=== PATIENT | female | born 1940 | race Caucasian/White ===

== ENCOUNTER → 2016-09-27 | Outpatient (REF) | payer MEDICARE ==
[~2016-09-27] MED LIST: ALBU1.25 IN; ALBU17IN INH; ASPI81TA2 PO; BISO5TAB54 PO; CARD4TAB2 PO; CARD8TAB2 PO; COZA100T2 PO; FURO20TA2 PO; OMEG100011 PO; SYNT150T PO; TAGA200T PO; VITA200015 PO; ZYRT10TA14 PO
[2016-09-27 12:32] LABS: MEAN CORPUSCULAR HEMOGLOBIN 29.9 pg (27.0-33.0); MEAN CORPUSCULAR HGB CONC 33.7 g/dl (32.0-36.5); MEAN CORPUSCULAR VOLUME 88.7 fl (80.0-96.0); RED CELL DISTRIBUTION WIDTH 13.8 % (11.5-14.5); WHITE BLOOD COUNT 7.3 K/mm3 (4.0-10.0)
[2016-09-27 13:08] LABS: ALBUMIN 3.3 GM/DL (3.2-5.2); ALBUMIN/GLOBULIN RATIO 0.89 (1.00-1.93); ALKALINE PHOSPHATASE 77 U/L (45-117); ALT/SGPT 16 U/L (12-78); ANION GAP 9 MEQ/L (8-16); AST/SGOT 13 U/L (15-37); BILIRUBIN,TOTAL 0.3 MG/DL (0.2-1.0); BLOOD UREA NITROGEN 18 MG/DL (7-18); CALCIUM LEVEL 8.8 MG/DL (8.8-10.2); CARBON DIOXIDE LEVEL 28 MEQ/L (21-32); CHLORIDE LEVEL 104 MEQ/L (98-107); CHOLESTEROL LEVEL 200 MG/DL (<200); CREATININE FOR GFR 1.01 MG/DL (0.55-1.02); FREE T4 1.38 NG/DL (0.76-1.46); GLUCOSE, FASTING 77 MG/DL (83-110); POTASSIUM SERUM 4.6 MEQ/L (3.5-5.1); SODIUM LEVEL 141 MEQ/L (136-145); TRIGLYCERIDES LEVEL 155 MG/DL (<150)
[2016-09-29 00:07] LABS: FREE KAPPA LIGHT CHAINS SERUM 36.72 mg/L (3.30-19.40); FREE LAMBDA LIGHT CHAINS SERUM 23.13 mg/L (5.71-26.30); KAPPA/LAMBDA RATIO SERUM 1.59 (0.26-1.65)
[2016-10-02 11:54] LABS: ALBUMIN 3.61 GM/DL (3.29-5.55); ALBUMIN % 51.5 % (55.8-66.1)
== END ==
LOC: M SFHCADAM 11:17
PROVIDERS: ATTEND Family Medicine
DX: D64.9 Anemia, unspecified (principal); E78.5 Hyperlipidemia, unspecified; R77.9 Abnormality of plasma protein, unspecified; E03.9 Hypothyroidism, unspecified
CPT/HCPCS: 80053; 80061; 83883; 84165; 84439; 84443; 85027; G0463

== ENCOUNTER 2016-11-02 17:01 | Emergency (ER) | payer MEDICARE ==
[~2016-11-02] VITALS: Ht 152.4 cm; Wt 129.2 kg
[2016-11-02 17:59] LABS: BASO % 0.5 % (0.0-1.0); EOS # 0.2 K/mm3 (0.0-0.50); EOS % 2.7 % (0.0-3.0); LARGE UNSTAINED CELL # 0.1 K/mm3 (0.0-0.4); LYMPH # 1.3 K/mm3 (1.5-4.5); LYMPH % 17.5 % (24.0-44.0); MEAN CORPUSCULAR HEMOGLOBIN 29.6 pg (27.0-33.0); MEAN CORPUSCULAR VOLUME 86.9 fl (80.0-96.0); MONO # 0.4 K/mm3 (0.0-0.8); MONO % 5.2 % (0.0-5.0); NEUTROPHILS # 5.3 K/mm3 (1.8-7.7); NEUTROPHILS % 73.2 % (36.0-66.0); PLATELET COUNT, AUTOMATED 215 k/mm3 (150-450); RED CELL DISTRIBUTION WIDTH 13.2 % (11.5-14.5); WHITE BLOOD COUNT 7.2 K/mm3 (4.0-10.0)
[2016-11-02 18:28] LABS: ANION GAP 5 MEQ/L (8-16); BLOOD UREA NITROGEN 16 MG/DL (7-18); CALCIUM LEVEL 8.9 MG/DL (8.8-10.2); CARBON DIOXIDE LEVEL 32 MEQ/L (21-32); CHLORIDE LEVEL 102 MEQ/L (98-107); GLOMERULAR FILTRATION RATE 51.7 (>39); GLUCOSE, FASTING 99 MG/DL (83-110); POTASSIUM SERUM 3.8 MEQ/L (3.5-5.1); SODIUM LEVEL 139 MEQ/L (136-145)
--- NOTE | 2016-11-02 18:43 | REP ---
CHEST, TWO VIEWS: 11/02/2016. Comparison: Portable chest 10/08/2012, two-view chest 09/27/2010. Clinical history: Chest pain. Findings: Heart has left ventricular configuration with mild enlargement. The aorta is tortuous and unchanged. There is some minor fibrotic changes in the left mid lung zone and perihilar regions. COPD with some flattening of diaphragms. A lateral view. Pulmonary artery hypertension. No pulmonary edema, dense consolidation or mass. The airway is intact. Bony thorax shows no acute compression deformity. Impression: 1. There is mild fibrosis with pulmonary artery hypertension suggesting COPD.2. Some mild cardiomegaly with left ventricular enlargement, some left atrial enlargement but no pulmonary edema or effusion. 3. No dense consolidation. Aorta tortuous but unchanged. Signed by Sebastian Tuttle MD 11/02/2016 08:48 P
[2016-11-02] MEDS ORDERED: GI COCKTAIL 50ML BTL(HYOSCYAMINE/MAALOX/LIDOCAINE VISCOUS)(1:3:1) PO ONE (18:45)
[2016-11-02] MEDS ORDERED: ASPIRIN 81 MG CHEW TABLET PO ONE (18:45)
[2016-11-02 23:59] VITALS: BP 159/71
--- NOTE | 2016-11-03 07:37 | ECGEPIP ---
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
--- NOTE | 2016-11-03 07:44 | ECGEPIP ---
Stationary ECG Study [facility] - ED Test Date: 2016-11-02 Pat Name: JEAN CARLOS FLORES Department: Room: - Gender: F Kilnman: samy : 1940 Requested By: SUKHI Thomson Order Number: [id number] Reading MD: Walt Zarate Measurements Intervals [place] Rate: 64 P: 24 SD: 188 QRS: -11 QRSD: 99 T: 8 QT: 377 QTc: 389 Interpretive Statements SINUS RHYTHM VOLTAGE CRITERIA FOR LVH PRIOR INFERIOR INFARCT PRWP SIMILAR TO PRIOR ON SAME DATE Electronically Signed On 11-03-2016 7:43:50 EDT by Walt Zarate
== END 2016-11-03 00:28 | disposition home or self-care (01) ==
LOC: M ED 18:34
DX: R07.9 Chest pain, unspecified (principal); I11.0 Hypertensive heart disease with heart failure; I48.91 Unspecified atrial fibrillation; E78.5 Hyperlipidemia, unspecified; K21.9 Gastro-esophageal reflux disease without esophagitis; J45.909 Unspecified asthma, uncomplicated; E07.9 Disorder of thyroid, unspecified; G47.30 Sleep apnea, unspecified; Z90.79 Acquired absence of other genital organ(s); Z87.891 Personal history of nicotine dependence; Z79.899 Other long term (current) drug therapy; Z88.2 Allergy status to sulfonamides; Z88.8 Allergy status to other drugs, medicaments and biological substances

== ENCOUNTER → 2016-12-25 | Outpatient (CLI) | payer MEDICARE ==
[2016-12-25 15:09] LABS: CREATININE FOR GFR 1.07 MG/DL (0.55-1.02); GLOMERULAR FILTRATION RATE 53.2 (>39)
== END ==
LOC: M WUC 08:45
PROVIDERS: ATTEND Otolaryngology
DX: D33.3 Benign neoplasm of cranial nerves (principal)

== ENCOUNTER → 2016-12-28 | Outpatient (CLI) | payer MEDICARE ==
--- NOTE | 2016-12-28 10:44 | REP ---
MRI study of the brain without and with IV gadolinium: History: Recheck acoustic neuroma. Complains of left-sided hearing loss. Comparison study December 26, 2015. Gadolinium enhancement dose: 12 mL of intravenous ProHance. Technique: Brain, posterior fossa, and temporal bone, IAC protocol is utilized. T1 and T2-weighted axial and coronal images include spin-echo, fast spin echo, 3-D gradient echo, and FLAIR sequences. Diffusion weighted sequences also acquired. Findings: There is mild diffuse cerebral atrophy as before. There is no MR evidence of significant paranasal sinus disease. No intraorbital abnormality is seen. No new extra-axial or intra-axial mass lesion is observed. An intracanalicular and extracanalicular mass lesion is seen in the left CP angle cistern at the IAC demonstrating intense homogeneous enhancement consistent with an acoustic neuroma. This has enlarged yet again since the prior study. In December of 2014 its dimensions were 10 x 5 x 5 mm. In December of 2015 its measured dimensions are 13 x 6 x 5 mm. Today these measurements are 15 x 8 x 7 mm. Homogeneous intense intracanalicular and extracanalicular enhancement is seen as before. The internal auditory canal does not appear to be widened. No other abnormal gadolinium enhancement is seen. Diffusion weighted scans show no evidence of restricted diffusion. No infarct or extra-axial fluid collection is seen. Exam is otherwise unremarkable. Impression: Gradually enlarging left acoustic neuroma. Signed by Jesús Pack MD 12/28/2016 12:51 P
== END ==
LOC: M RAD 08:07
PROVIDERS: ATTEND Otolaryngology
DX: D33.3 Benign neoplasm of cranial nerves (principal)
CPT/HCPCS: 70553; A9576

== ENCOUNTER 2017-10-25 09:26 | Emergency (ER) | payer MEDICARE ==
[2017-10-25 10:13] LABS: BASO % 0.3 % (0.0-1.0); EOS # 0.4 10^3/uL (0.0-0.50); EOS % 6.8 % (0.0-3.0); HEMATOCRIT 38.4 % (36.0-47.0); HEMOGLOBIN 12.4 g/dl (12.0-15.5); IMMATURE GRANULOCYTE % 0.5 % (0-3.0); LYMPH # 1.2 10^3/uL (1.5-4.5); MEAN CORPUSCULAR HEMOGLOBIN 28.8 pg (27.0-33.0); MEAN CORPUSCULAR HGB CONC 32.3 g/dl (32.0-36.5); MEAN CORPUSCULAR VOLUME 89.1 fl (80.0-96.0); MONO # 0.3 10^3/uL (0.0-0.8); MONO % 5.3 % (0.0-5.0); NEUTROPHILS # 4.2 10^3/uL (1.8-7.7); NEUTROPHILS % 68.1 % (36.0-66.0); PLATELET COUNT, AUTOMATED 225 10^3/uL (150-450); RED BLOOD COUNT 4.31 10^6/uL (4.00-5.40); RED CELL DISTRIBUTION WIDTH 13.4 % (11.5-14.5); WHITE BLOOD COUNT 6.2 10^3/uL (4.0-10.0)
[2017-10-25] MEDS ORDERED: IPRATROPIUM 0.5MG/ALBUTEROL 2.5MG INH SOL UD 3ML (DUONEB)(J7620) NEB (10:15)
[2017-10-25] MEDS ORDERED: methylPREDNISolone INJ 125 MG/2 ML VIAL (J2930) IV (10:15)
[2017-10-25] MEDS: methylPREDNISolone INJ 125 MG/2 ML VIAL (J2930) IV (10:23)
[2017-10-25] MEDS: LORazepam 2 MG/ML VIAL (J2060) IV (10:23)
[2017-10-25] MEDS: ALBUTEROL SULFATE 2.5 MG/0.5 ML INH NEB SOLN NEB (10:25)
[2017-10-25 10:27] LABS: ABG HCO3 27.8 MEQ/L (22.0-26.0); ABG O2 SATURATION 96.6 % (95.0-99.0); ABG PARTIAL PRESSURE CO2 38.6 mmHg (35.0-45.0); ABG STANDARD HCO3 28.1 MEQ/L (22.0-26.0); ABG pH (ARTERIAL) 7.475 UNITS (7.350-7.450)
[2017-10-25 10:58] LABS: LACTIC ACID SEPSIS PROTOCOL 1.6 MMOL/L (0.4-2.0)
[2017-10-25 10:59] LABS: ANION GAP 4 MEQ/L (8-16); BLOOD UREA NITROGEN 16 MG/DL (7-18); CALCIUM LEVEL 9.6 MG/DL (8.8-10.2); CARBON DIOXIDE LEVEL 32 MEQ/L (21-32); CHLORIDE LEVEL 106 MEQ/L (98-107); CK-MB VALUE MASS < 1.0 NG/ML (<3.6); CPK CREATINE PHOSPHOKINASE 63 U/L (26-192); CREATININE FOR GFR 1.02 MG/DL (0.55-1.30); GLOMERULAR FILTRATION RATE 56.2 (>39); GLUCOSE, FASTING 99 MG/DL (70-100); MB/CK RELATIVE INDEX 1.58 (< OR =4); SODIUM LEVEL 142 MEQ/L (136-145); TROPONIN I < 0.02 NG/ML (< 0.10)
[2017-10-25 11:17] LABS: NT-PRO BNP 261 PG/ML (<450); THYROID STIMULATING HORMONE 0.823 uIU/ML (0.358-3.740)
== END 2017-10-25 13:54 | disposition home or self-care (01) ==
LOC: M ED 09:26
DX: J45.901 Unspecified asthma with (acute) exacerbation (principal); E66.9 Obesity, unspecified; R00.2 Palpitations; F41.9 Anxiety disorder, unspecified; I51.7 Cardiomegaly; Z79.82 Long term (current) use of aspirin; Z79.899 Other long term (current) drug therapy; Z88.8 Allergy status to other drugs, medicaments and biological substances; Z88.2 Allergy status to sulfonamides
CPT/HCPCS: J2930

== ENCOUNTER → 2017-11-01 | Outpatient (CLI) | payer MEDICARE | LOC: M ADAMS 14:05 | DX: M89.312 Hypertrophy of bone, left shoulder (principal); M25.812 Other specified joint disorders, left shoulder | CPT/HCPCS: 73000 ==

== ENCOUNTER → 2017-12-24 | Outpatient (REF) | payer MEDICARE ==
[2017-12-24 17:48] LABS: D-DIMER QUANT 1117.8 ng/ml (<500)
[2017-12-24 17:58] LABS: ANION GAP 11 MEQ/L (8-16); BLOOD UREA NITROGEN 19 MG/DL (7-18); CALCIUM LEVEL 9.2 MG/DL (8.8-10.2); CARBON DIOXIDE LEVEL 26 MEQ/L (21-32); CHLORIDE LEVEL 107 MEQ/L (98-107); CREATININE FOR GFR 1.14 MG/DL (0.55-1.30); GLOMERULAR FILTRATION RATE 49.3 (>39); GLUCOSE, FASTING 93 MG/DL (70-100); NT-PRO BNP 276 PG/ML (<450); SODIUM LEVEL 144 MEQ/L (136-145)
== END ==
LOC: M SFHCPLAZ 14:55
DX: R09.02 Hypoxemia (principal); R60.0 Localized edema; J45.21 Mild intermittent asthma with (acute) exacerbation
CPT/HCPCS: 80048

== ENCOUNTER → 2017-12-25 | Outpatient (CLI) | payer MEDICARE | LOC: M RAD 11:37 | DX: R09.02 Hypoxemia (principal); M79.89 Other specified soft tissue disorders; J84.10 Pulmonary fibrosis, unspecified | CPT/HCPCS: 71046 ==

== ENCOUNTER → 2018-01-22 | Outpatient (REF) | payer MEDICARE ==
[2018-01-22 18:30] LABS: BASO % 0.5 % (0.0-1.0); EOS # 0.4 10^3/uL (0.0-0.50); EOS % 4.1 % (0.0-3.0); HEMATOCRIT 36.7 % (36.0-47.0); HEMOGLOBIN 12.1 g/dl (12.0-15.5); IMMATURE GRANULOCYTE % 0.4 % (0-3.0); LYMPH # 1.4 10^3/uL (1.5-4.5); LYMPH % 16.2 % (24.0-44.0); MEAN CORPUSCULAR HEMOGLOBIN 28.8 pg (27.0-33.0); MEAN CORPUSCULAR VOLUME 87.4 fl (80.0-96.0); MONO # 0.6 10^3/uL (0.0-0.8); MONO % 6.8 % (0.0-5.0); NEUTROPHILS # 6.1 10^3/uL (1.8-7.7); PLATELET COUNT, AUTOMATED 241 10^3/uL (150-450); RED CELL DISTRIBUTION WIDTH 12.9 % (11.5-14.5); WHITE BLOOD COUNT 8.5 10^3/uL (4.0-10.0)
[2018-01-22 18:49] LABS: ALBUMIN 3.5 GM/DL (3.2-5.2); ALBUMIN/GLOBULIN RATIO 0.92 (1.00-1.93); ALKALINE PHOSPHATASE 81 U/L (45-117); ALT/SGPT 17 U/L (12-78); ANION GAP 7 MEQ/L (8-16); AST/SGOT 13 U/L (7-37); BILIRUBIN,TOTAL 0.3 MG/DL (0.2-1.0); BLOOD UREA NITROGEN 21 MG/DL (7-18); CALCIUM LEVEL 9.3 MG/DL (8.8-10.2); CARBON DIOXIDE LEVEL 28 MEQ/L (21-32); CHLORIDE LEVEL 107 MEQ/L (98-107); CREATININE FOR GFR 0.96 MG/DL (0.55-1.30); GLOMERULAR FILTRATION RATE > 60.0 (>39); GLUCOSE, FASTING 93 MG/DL (70-100); POTASSIUM SERUM 4.1 MEQ/L (3.5-5.1); SODIUM LEVEL 142 MEQ/L (136-145); TOTAL PROTEIN 7.3 GM/DL (6.4-8.2)
[2018-01-28 00:07] LABS: FREE KAPPA LIGHT CHAINS SERUM 26.2 mg/L (3.3-19.4); FREE LAMBDA LIGHT CHAINS SERUM 19.5 mg/L (5.7-26.3); KAPPA/LAMBDA RATIO SERUM 1.34 (0.26-1.65); KAPPA/LAMBDA RATIO URINE 1.55 (2.04-10.37)
[2018-01-28 00:07] LABS: ALK PHOSPHATASE BONE SPECIFIC 13.2 ug/L (.)
== END ==
LOC: M SFHCPLAZ 15:35
DX: R60.0 Localized edema (principal); D89.89 Other specified disorders involving the immune mechanism, not elsewhere classified
CPT/HCPCS: 80053

== ENCOUNTER 2018-02-20 12:58 | Inpatient (IN) | payer MEDICARE ==
[2018-02-20] MEDS: FUROSEMIDE 100 MG/10 ML VIAL (J1940) IV (13:45)
[2018-02-20 14:24] LABS: BASO % 0.2 % (0.0-1.0); EOS # 0.3 10^3/uL (0.0-0.50); EOS % 4.1 % (0.0-3.0); HEMATOCRIT 35.4 % (36.0-47.0); HEMOGLOBIN 11.7 g/dl (12.0-15.5); IMMATURE GRANULOCYTE % 0.4 % (0-3.0); LYMPH # 1.4 10^3/uL (1.5-4.5); LYMPH % 16.4 % (24.0-44.0); MEAN CORPUSCULAR HEMOGLOBIN 28.9 pg (27.0-33.0); MEAN CORPUSCULAR HGB CONC 33.1 g/dl (32.0-36.5); MEAN CORPUSCULAR VOLUME 87.4 fl (80.0-96.0); MONO # 0.6 10^3/uL (0.0-0.8); MONO % 6.7 % (0.0-5.0); NEUTROPHILS # 6.1 10^3/uL (1.8-7.7); NEUTROPHILS % 72.2 % (36.0-66.0); PLATELET COUNT, AUTOMATED 206 10^3/uL (150-450); RED BLOOD COUNT 4.05 10^6/uL (4.00-5.40); RED CELL DISTRIBUTION WIDTH 12.9 % (11.5-14.5); WHITE BLOOD COUNT 8.4 10^3/uL (4.0-10.0)
[2018-02-20 14:34] LABS: INR 0.99; PROTHROMBIN TIME 13.1 SECONDS (12.1-14.4)
[2018-02-20 14:35] LABS: VENOUS BASE EXCESS 3.3 (-2.0-2.0); VENOUS HCO3 28.9 MEQ/L (23.0-27.0); VENOUS O2 SATURATION 81.9 % (60.0-80.0); VENOUS PARTIAL PRESSURE O2 47.5 mmHg (30.0-50.0); VENOUS PH 7.397 UNITS (7.330-7.430); VENOUS TOTAL CO2 30.3 MEQ/L (24.0-28.0)
[2018-02-20 15:04] LABS: ALBUMIN 3.2 GM/DL (3.2-5.2); ALBUMIN/GLOBULIN RATIO 0.78 (1.00-1.93); ALKALINE PHOSPHATASE 75 U/L (45-117); ALT/SGPT 19 U/L (12-78); ANION GAP 8 MEQ/L (8-16); AST/SGOT 18 U/L (7-37); BILIRUBIN,DIRECT 0.1 MG/DL (0.0-0.2); BILIRUBIN,TOTAL 0.3 MG/DL (0.2-1.0); BLOOD UREA NITROGEN 18 MG/DL (7-18); CARBON DIOXIDE LEVEL 29 MEQ/L (21-32); CHLORIDE LEVEL 105 MEQ/L (98-107); CK-MB VALUE MASS < 1.0 NG/ML (<3.6); CPK CREATINE PHOSPHOKINASE 51 U/L (26-192); CREATININE FOR GFR 1.02 MG/DL (0.55-1.30); GLOMERULAR FILTRATION RATE 56.1 (>39); GLUCOSE, FASTING 84 MG/DL (70-100); MB/CK RELATIVE INDEX 1.96 (< OR =4); NT-PRO BNP 242 PG/ML (<450); SODIUM LEVEL 142 MEQ/L (136-145); TOTAL PROTEIN 7.3 GM/DL (6.4-8.2); TROPONIN I < 0.02 NG/ML (< 0.10)
[2018-02-20] MEDS ORDERED: SODIUM CHLORIDE NASAL 0.65% SPRAY BTL (OCEAN) (18:30)
[2018-02-20] MEDS ORDERED: ONDANSETRON 4 MG TAB (S0181) PO (18:30)
[2018-02-20] MEDS ORDERED: ONDANSETRON 4MG/2ML VIAL (J2405) IV (18:30)
[2018-02-20 19:45] LABS: CK-MB VALUE MASS < 1.0 NG/ML (<3.6); CPK CREATINE PHOSPHOKINASE 52 U/L (26-192); MB/CK RELATIVE INDEX 1.92 (< OR =4); TROPONIN I < 0.02 NG/ML (< 0.10)
[2018-02-20] MEDS: ALBUTEROL SULFATE 2.5 MG/0.5 ML INH NEB SOLN INH (20:00)
[2018-02-20] MEDS: LOSARTAN 50 MG TAB PO (21:24)
[2018-02-20] MEDS: BISOPROLOL FUMARATE 5 MG TAB PO (21:24)
[2018-02-20] MEDS: FUROSEMIDE 40 MG/4 ML VIAL (J1940) IV (23:10)
[2018-02-21 02:46] LABS: CK-MB VALUE MASS < 1.0 NG/ML (<3.6); CPK CREATINE PHOSPHOKINASE 65 U/L (26-192); MB/CK RELATIVE INDEX 1.54 (< OR =4); TROPONIN I < 0.02 NG/ML (< 0.10)
[2018-02-21] MEDS: FUROSEMIDE 40 MG/4 ML VIAL (J1940) IV ×4 (05:33→19:09)
[2018-02-21] MEDS: LEVOTHYROXINE 150MCG TABLET (0.15MG) PO (05:33)
[2018-02-21 06:08] LABS: APPEARANCE, URINE HAZY (CLEAR); BACTERIA, URINE AUTO 1+ (NEGATIVE); BILIRUBIN, URINE AUTO NEGATIVE (NEGATIVE); BLOOD, URINE BLOOD NEGATIVE (NEGATIVE); COLOR, URINE YELLOW (YELLOW); GLUCOSE, URINE (UA) AUTO NEGATIVE (NEGATIVE); KETONE, URINE AUTO NEGATIVE (NEGATIVE); LEUKOCYTE ESTERASE, URINE AUTO 2+ (NEGATIVE); MUCUS, URINE SMALL (NEGATIVE); NITRITE, URINE AUTO NEGATIVE (NEGATIVE); PROTEIN, URINE AUTO NEGATIVE (NEGATIVE); RBC, URINE AUTO 3 /HPF (0-3); SPECIFIC GRAVITY URINE AUTO 1.023 (1.002-1.035); SQUAMOUS EPITHELIAL CELL UR AU 4 /HPF (0-6); UROBILINOGEN, URINE AUTO 0.2 mg/dL (0.0-2.0); WBC, URINE AUTO 13 /HPF (0-3)
[2018-02-21 06:42] LABS: BASO % 0.3 % (0.0-1.0); EOS # 0.2 10^3/uL (0.0-0.50); EOS % 2.9 % (0.0-3.0); HEMATOCRIT 36.5 % (36.0-47.0); HEMOGLOBIN 12.3 g/dl (12.0-15.5); IMMATURE GRANULOCYTE % 0.4 % (0-3.0); LYMPH # 1.2 10^3/uL (1.5-4.5); LYMPH % 15.3 % (24.0-44.0); MEAN CORPUSCULAR HEMOGLOBIN 29.4 pg (27.0-33.0); MEAN CORPUSCULAR HGB CONC 33.7 g/dl (32.0-36.5); MEAN CORPUSCULAR VOLUME 87.1 fl (80.0-96.0); MONO # 0.5 10^3/uL (0.0-0.8); MONO % 6.6 % (0.0-5.0); NEUTROPHILS # 5.7 10^3/uL (1.8-7.7); NEUTROPHILS % 74.5 % (36.0-66.0); PLATELET COUNT, AUTOMATED 212 10^3/uL (150-450); RED BLOOD COUNT 4.19 10^6/uL (4.00-5.40); RED CELL DISTRIBUTION WIDTH 13.1 % (11.5-14.5); WHITE BLOOD COUNT 7.6 10^3/uL (4.0-10.0)
[2018-02-21 07:12] LABS: ANION GAP 9 MEQ/L (8-16); BLOOD UREA NITROGEN 21 MG/DL (7-18); CALCIUM LEVEL 8.9 MG/DL (8.8-10.2); CARBON DIOXIDE LEVEL 30 MEQ/L (21-32); CHLORIDE LEVEL 104 MEQ/L (98-107); CREATININE FOR GFR 1.19 MG/DL (0.55-1.30); GLOMERULAR FILTRATION RATE 46.9 (>39); GLUCOSE, FASTING 93 MG/DL (70-100); MAGNESIUM LEVEL 2.2 MG/DL (1.8-2.4); POTASSIUM SERUM 4.1 MEQ/L (3.5-5.1); SODIUM LEVEL 143 MEQ/L (136-145)
[2018-02-21] MEDS: VITAMIN D 1,000 INTERNATIONAL UNITS TABLET PO (07:57)
[2018-02-21] MEDS: OMEGA-3 1000MG CAPSULE PO (07:57)
[2018-02-21] MEDS: OCUVITE 1 TAB PO (07:57)
[2018-02-21] MEDS: ENOXAPARIN 40 MG/0.4 ML SYRINGE (J1650) SC (07:58)
[2018-02-21] MEDS: ALBUTEROL SULFATE 2.5 MG/0.5 ML INH NEB SOLN INH ×4 (08:00→20:00)
[2018-02-21 08:01] LABS: FREE THYROXINE INDEX 4.6 % (1.3-4.8); T UPTAKE 37 % (30-39); THYROXINE (T4) 12.5 UG/DL (4.5-12.0)
[2018-02-21] MEDS ORDERED: DOXAZOSIN MESYLATE 4 MG TAB PO (09:00)
[2018-02-21] MEDS ORDERED: PILL CRUSHER/CUTTER 1 EACH XX (10:00)
[2018-02-21 10:51] LABS: CK-MB VALUE MASS < 1.0 NG/ML (<3.6); CPK CREATINE PHOSPHOKINASE 96 U/L (26-192); MB/CK RELATIVE INDEX 1.04 (< OR =4); TROPONIN I < 0.02 NG/ML (< 0.10)
[2018-02-21] MEDS: ACETAMINOPHEN TAB 650MG DOSE (2X325MG) PO (11:03)
[2018-02-21] MEDS: IBUPROFEN 600 MG TAB PO (14:00)
[2018-02-21] MEDS: LOSARTAN 50 MG TAB PO (21:25)
[2018-02-21] MEDS: BISOPROLOL FUMARATE 5 MG TAB PO (21:26)
[2018-02-22] MEDS: FUROSEMIDE 40 MG/4 ML VIAL (J1940) IV ×4 (00:16→18:04)
[2018-02-22] MEDS: ACETAMINOPHEN TAB 650MG DOSE (2X325MG) PO ×2 (04:13→22:52)
[2018-02-22] MEDS: LEVOTHYROXINE 150MCG TABLET (0.15MG) PO (06:00)
[2018-02-22 06:17] LABS: BASO % 0.5 % (0.0-1.0); EOS # 0.4 10^3/uL (0.0-0.50); EOS % 5.6 % (0.0-3.0); HEMATOCRIT 34.5 % (36.0-47.0); HEMOGLOBIN 11.4 g/dl (12.0-15.5); IMMATURE GRANULOCYTE % 0.6 % (0-3.0); LYMPH # 1.1 10^3/uL (1.5-4.5); LYMPH % 17.4 % (24.0-44.0); MEAN CORPUSCULAR HEMOGLOBIN 28.9 pg (27.0-33.0); MEAN CORPUSCULAR VOLUME 87.3 fl (80.0-96.0); MONO # 0.5 10^3/uL (0.0-0.8); MONO % 7.9 % (0.0-5.0); NEUTROPHILS # 4.5 10^3/uL (1.8-7.7); PLATELET COUNT, AUTOMATED 207 10^3/uL (150-450); RED BLOOD COUNT 3.95 10^6/uL (4.00-5.40); WHITE BLOOD COUNT 6.6 10^3/uL (4.0-10.0)
[2018-02-22 06:43] LABS: ANION GAP 8 MEQ/L (8-16); BLOOD UREA NITROGEN 28 MG/DL (7-18); CALCIUM LEVEL 8.3 MG/DL (8.8-10.2); CARBON DIOXIDE LEVEL 31 MEQ/L (21-32); CHLORIDE LEVEL 103 MEQ/L (98-107); CREATININE FOR GFR 1.22 MG/DL (0.55-1.30); GLOMERULAR FILTRATION RATE 45.6 (>39); GLUCOSE, FASTING 101 MG/DL (70-100); MAGNESIUM LEVEL 2.2 MG/DL (1.8-2.4); POTASSIUM SERUM 3.8 MEQ/L (3.5-5.1); SODIUM LEVEL 142 MEQ/L (136-145)
[2018-02-22] MEDS: ALBUTEROL SULFATE 2.5 MG/0.5 ML INH NEB SOLN INH ×4 (08:00→20:00)
[2018-02-22] MEDS: OMEGA-3 1000MG CAPSULE PO (09:05)
[2018-02-22] MEDS: ENOXAPARIN 40 MG/0.4 ML SYRINGE (J1650) SC (09:05)
[2018-02-22] MEDS: OCUVITE 1 TAB PO (09:05)
[2018-02-22] MEDS: VITAMIN D 1,000 INTERNATIONAL UNITS TABLET PO (09:05)
[2018-02-22] MEDS: ASPIRIN 81 MG ENTERIC TAB PO (12:37)
[2018-02-22] MEDS: BISOPROLOL FUMARATE 5 MG TAB PO (20:55)
[2018-02-22] MEDS: LOSARTAN 50 MG TAB PO (20:55)
[2018-02-23] MEDS: FUROSEMIDE 40 MG/4 ML VIAL (J1940) IV ×2 (05:40)
[2018-02-23] MEDS: LEVOTHYROXINE 150MCG TABLET (0.15MG) PO (05:40)
[2018-02-23 06:32] LABS: BASO % 0.3 % (0.0-1.0); EOS # 0.4 10^3/uL (0.0-0.50); EOS % 6.3 % (0.0-3.0); HEMATOCRIT 35.6 % (36.0-47.0); HEMOGLOBIN 11.5 g/dl (12.0-15.5); IMMATURE GRANULOCYTE % 0.3 % (0-3.0); LYMPH # 1.3 10^3/uL (1.5-4.5); LYMPH % 19.7 % (24.0-44.0); MEAN CORPUSCULAR HEMOGLOBIN 28.3 pg (27.0-33.0); MEAN CORPUSCULAR HGB CONC 32.3 g/dl (32.0-36.5); MEAN CORPUSCULAR VOLUME 87.5 fl (80.0-96.0); MONO # 0.5 10^3/uL (0.0-0.8); MONO % 7.1 % (0.0-5.0); NEUTROPHILS # 4.3 10^3/uL (1.8-7.7); NEUTROPHILS % 66.3 % (36.0-66.0); PLATELET COUNT, AUTOMATED 205 10^3/uL (150-450); RED BLOOD COUNT 4.07 10^6/uL (4.00-5.40); WHITE BLOOD COUNT 6.5 10^3/uL (4.0-10.0)
[2018-02-23 07:07] LABS: ANION GAP 6 MEQ/L (8-16); BLOOD UREA NITROGEN 32 MG/DL (7-18); CALCIUM LEVEL 8.4 MG/DL (8.8-10.2); CARBON DIOXIDE LEVEL 32 MEQ/L (21-32); CHLORIDE LEVEL 104 MEQ/L (98-107); CREATININE FOR GFR 1.25 MG/DL (0.55-1.30); GLOMERULAR FILTRATION RATE 44.4 (>39); GLUCOSE, FASTING 99 MG/DL (70-100); MAGNESIUM LEVEL 2.1 MG/DL (1.8-2.4); POTASSIUM SERUM 3.3 MEQ/L (3.5-5.1); SODIUM LEVEL 142 MEQ/L (136-145)
[2018-02-23] MEDS: ENOXAPARIN 40 MG/0.4 ML SYRINGE (J1650) SC (09:00)
[2018-02-23] MEDS: OMEGA-3 1000MG CAPSULE PO (09:27)
[2018-02-23] MEDS: ASPIRIN 81 MG ENTERIC TAB PO (09:27)
[2018-02-23] MEDS: VITAMIN D 1,000 INTERNATIONAL UNITS TABLET PO (09:27)
[2018-02-23] MEDS: OCUVITE 1 TAB PO (09:27)
[2018-02-23] MEDS: POTASSIUM CHLORIDE 10 MEQ SR TABLET PO (09:27)
[2018-02-23] MEDS: ISOSORBIDE MON. (IMDUR) 30 MG XR TAB PO (09:27)
[2018-02-23] MEDS ORDERED: BISOPROLOL FUMARATE 5 MG TAB PO (21:00)
[2018-02-24] MEDS ORDERED: FUROSEMIDE 40 MG TAB PO (09:00)
== END 2018-02-23 12:14 | disposition home or self-care (01) | DRG 291 ==
LOC: M ED 12:58 → M ED INP 18:17 → M MSPAV 22:43
DX: I13.0 Hypertensive heart and chronic kidney disease with heart failure and stage 1 through stage 4 chronic kidney disease, or unspecified chronic kidney disease (principal); I50.33 Acute on chronic diastolic (congestive) heart failure; Z68.43 Body mass index [BMI] 50.0-59.9, adult; J45.909 Unspecified asthma, uncomplicated; E03.9 Hypothyroidism, unspecified; K21.9 Gastro-esophageal reflux disease without esophagitis; I48.0 Paroxysmal atrial fibrillation; I27.20 Pulmonary hypertension, unspecified; G47.33 Obstructive sleep apnea (adult) (pediatric); N18.3 Chronic kidney disease, stage 3 (moderate); E66.01 Morbid (severe) obesity due to excess calories; Z85.828 Personal history of other malignant neoplasm of skin; Z87.891 Personal history of nicotine dependence; Z88.1 Allergy status to other antibiotic agents; Z88.2 Allergy status to sulfonamides; Z88.8 Allergy status to other drugs, medicaments and biological substances; Z79.899 Other long term (current) drug therapy

== ENCOUNTER 2018-03-02 06:31 | Emergency (ER) | payer MEDICARE ==
[2018-03-02] MEDS ORDERED: MORPHINE 4 MG/ML 1ML VIAL/SYRINGE (J2270) As Ordered ×2 (07:11)
[2018-03-02] MEDS ORDERED: ONDANSETRON 4MG/2ML VIAL (J2405) As Ordered ×2 (07:11)
[2018-03-02] MEDS ORDERED: METOPROLOL 5 MG/5 ML VIAL As Ordered ×2 (07:12)
[2018-03-02] MEDS: MORPHINE 4 MG/ML 1ML VIAL/SYRINGE (J2270) IV ×4 (07:14→07:35)
[2018-03-02] MEDS: ONDANSETRON 4MG/2ML VIAL (J2405) IV ×2 (07:15)
[2018-03-02] MEDS: METOPROLOL 5 MG/5 ML VIAL IV ×6 (07:15→07:42)
[2018-03-02] MEDS ORDERED: ISOVUE-370 76% 100ML VIAL (Q9967) As Ordered ×2 (07:16)
[2018-03-02 07:23] LABS: BASO % 0.2 % (0.0-1.0); EOS # 0.4 10^3/uL (0.0-0.50); EOS % 3.2 % (0.0-3.0); HEMATOCRIT 40.3 % (36.0-47.0); HEMOGLOBIN 13.2 g/dl (12.0-15.5); IMMATURE GRANULOCYTE % 0.5 % (0-3.0); LYMPH # 1.2 10^3/uL (1.5-4.5); LYMPH % 9.5 % (24.0-44.0); MEAN CORPUSCULAR HEMOGLOBIN 28.8 pg (27.0-33.0); MEAN CORPUSCULAR HGB CONC 32.8 g/dl (32.0-36.5); MEAN CORPUSCULAR VOLUME 87.8 fl (80.0-96.0); MONO # 0.7 10^3/uL (0.0-0.8); MONO % 5.8 % (0.0-5.0); NEUTROPHILS # 10.2 10^3/uL (1.8-7.7); NEUTROPHILS % 80.8 % (36.0-66.0); PLATELET COUNT, AUTOMATED 284 10^3/uL (150-450); RED BLOOD COUNT 4.59 10^6/uL (4.00-5.40); RED CELL DISTRIBUTION WIDTH 12.6 % (11.5-14.5); WHITE BLOOD COUNT 12.6 10^3/uL (4.0-10.0)
[2018-03-02 07:33] LABS: INR 0.97
[2018-03-02 07:34] LABS: PARTIAL THROMBOPLASTIN TIME 28.5 SECONDS (25.4-37.6)
[2018-03-02] MEDS: MORPHINE 2 MG/ML 1ML SYRINGE (J2270) IV ×2 (07:39)
[2018-03-02] MEDS ORDERED: MORPHINE 2 MG/ML 1ML SYRINGE (J2270) IV ×2 (07:45)
[2018-03-02] MEDS: NITROGLYCERIN/D5W 100MCG/ML 25 MG in APPROPRIATE DILUENT 1 EA IV (07:52)
[2018-03-02 07:56] LABS: ALBUMIN 3.3 GM/DL (3.2-5.2); ALBUMIN/GLOBULIN RATIO 0.75 (1.00-1.93); ALKALINE PHOSPHATASE 79 U/L (45-117); ALT/SGPT 15 U/L (12-78); ANION GAP 9 MEQ/L (8-16); AST/SGOT 15 U/L (7-37); BILIRUBIN,DIRECT 0.1 MG/DL (0.0-0.2); BILIRUBIN,TOTAL 0.4 MG/DL (0.2-1.0); BLOOD UREA NITROGEN 24 MG/DL (7-18); CALCIUM LEVEL 9.5 MG/DL (8.8-10.2); CARBON DIOXIDE LEVEL 27 MEQ/L (21-32); CHLORIDE LEVEL 105 MEQ/L (98-107); CK-MB VALUE MASS < 1.0 NG/ML (<3.6); CPK CREATINE PHOSPHOKINASE 48 U/L (26-192); CREATININE FOR GFR 1.22 MG/DL (0.55-1.30); GLOMERULAR FILTRATION RATE 45.6 (>39); GLUCOSE, FASTING 120 MG/DL (70-100); MB/CK RELATIVE INDEX 2.08 (< OR =4); POTASSIUM SERUM 3.8 MEQ/L (3.5-5.1); SODIUM LEVEL 141 MEQ/L (136-145); TOTAL PROTEIN 7.7 GM/DL (6.4-8.2); TROPONIN I < 0.02 NG/ML (< 0.10)
[2018-03-02] MEDS ORDERED: fentaNYL 100 MCG/2 ML INJECTION (J3010) As Ordered ×2 (08:16)
[2018-03-02] MEDS: fentaNYL 100 MCG/2 ML INJECTION (J3010) IV ×2 (08:18)
[2018-03-02] MEDS ORDERED: HEPARIN 25,000 UNITS/250 ML D5W BAG (100 UNITS/ML) As Ordered ×2 (08:27)
[2018-03-02] MEDS: NS 500 ML IV ×2 (08:30)
[2018-03-02] MEDS: HEPARIN SOD (PORCINE) 5000 UNITS/ML VIAL IV ×2 (08:32)
[2018-03-02] MEDS: CLOPIDOGREL 300 MG TAB (PLAVIX) PO ×2 (08:33)
[2018-03-02] MEDS: HEPARIN DRIP 25,000 UNITS in APPROPRIATE DILUENT 1 EA IV (08:35)
[2018-03-02 09:00] LABS: CK-MB VALUE MASS < 1.0 NG/ML (<3.6); CPK CREATINE PHOSPHOKINASE 40 U/L (26-192); TROPONIN I < 0.02 NG/ML (< 0.10)
== END 2018-03-02 08:45 | disposition short-term general hospital (02) ==
LOC: M ED 06:31
DX: I20.0 Unstable angina (principal); R07.9 Chest pain, unspecified; M54.6 Pain in thoracic spine; I11.0 Hypertensive heart disease with heart failure; I50.9 Heart failure, unspecified; J45.909 Unspecified asthma, uncomplicated; E78.5 Hyperlipidemia, unspecified; G47.33 Obstructive sleep apnea (adult) (pediatric); E03.9 Hypothyroidism, unspecified; K21.9 Gastro-esophageal reflux disease without esophagitis; F41.9 Anxiety disorder, unspecified; Z99.89 Dependence on other enabling machines and devices; Z79.899 Other long term (current) drug therapy; Z79.82 Long term (current) use of aspirin; Z79.01 Long term (current) use of anticoagulants; Z88.1 Allergy status to other antibiotic agents; Z88.2 Allergy status to sulfonamides; Z88.5 Allergy status to narcotic agent; Z87.891 Personal history of nicotine dependence
CPT/HCPCS: J2270

== ENCOUNTER 2018-03-06 17:50 | Inpatient (IN) | payer MEDICARE ==
[2018-03-06 20:03] LABS: BASO % 0.3 % (0.0-1.0); EOS # 0.3 10^3/uL (0.0-0.50); EOS % 4.5 % (0.0-3.0); HEMATOCRIT 33.1 % (36.0-47.0); HEMOGLOBIN 10.9 g/dl (12.0-15.5); IMMATURE GRANULOCYTE % 0.8 % (0-3.0); LYMPH # 1.3 10^3/uL (1.5-4.5); LYMPH % 18.6 % (24.0-44.0); MEAN CORPUSCULAR HGB CONC 32.9 g/dl (32.0-36.5); MONO # 0.6 10^3/uL (0.0-0.8); NEUTROPHILS # 4.8 10^3/uL (1.8-7.7); NEUTROPHILS % 67.8 % (36.0-66.0); PLATELET COUNT, AUTOMATED 295 10^3/uL (150-450); RED BLOOD COUNT 3.76 10^6/uL (4.00-5.40); RED CELL DISTRIBUTION WIDTH 12.9 % (11.5-14.5); WHITE BLOOD COUNT 7.1 10^3/uL (4.0-10.0)
[2018-03-06 20:19] LABS: ABG BASE EXCESS 2.8 (-2.0-2.0); ABG O2 SATURATION 95.8 % (95.0-99.0); ABG PARTIAL PRESSURE CO2 34.8 mmHg (35.0-45.0); ABG PARTIAL PRESSURE O2 72.9 mmHg (75.0-100.0); ABG TOTAL CO2 27.1 MEQ/L (23.0-31.0); ABG pH (ARTERIAL) 7.491 UNITS (7.350-7.450)
[2018-03-06 20:20] LABS: INR 1.37; PROTHROMBIN TIME 17.1 SECONDS (12.1-14.4)
[2018-03-06 20:21] LABS: PARTIAL THROMBOPLASTIN TIME 44.4 SECONDS (25.4-37.6)
[2018-03-06 20:22] LABS: ANION GAP 9 MEQ/L (8-16); BLOOD UREA NITROGEN 18 MG/DL (7-18); CALCIUM LEVEL 8.3 MG/DL (8.8-10.2); CARBON DIOXIDE LEVEL 25 MEQ/L (21-32); CHLORIDE LEVEL 108 MEQ/L (98-107); CK-MB VALUE MASS < 1.0 NG/ML (<3.6); CPK CREATINE PHOSPHOKINASE 56 U/L (26-192); CREATININE FOR GFR 1.16 MG/DL (0.55-1.30); GLOMERULAR FILTRATION RATE 48.4 (>39); GLUCOSE, FASTING 102 MG/DL (70-100); MB/CK RELATIVE INDEX 1.79 (< OR =4); NT-PRO BNP 3058 PG/ML (<450); POTASSIUM SERUM 3.7 MEQ/L (3.5-5.1); SODIUM LEVEL 142 MEQ/L (136-145); TROPONIN I 0.09 NG/ML (< 0.10)
[2018-03-06] MEDS ORDERED: ISOVUE-370 76% 100ML VIAL (Q9967) As Ordered (20:51)
[2018-03-06] MEDS: FUROSEMIDE 100 MG/10 ML VIAL (J1940) IV (21:00)
[2018-03-06] MEDS: NITROGLYCERIN 2% OINT 1 GM *U/D* PKT TOP (21:01)
[2018-03-06] MEDS: hydrALAZINE INJ 20 MG/ML VIAL IV (22:22)
[2018-03-07] MEDS: hydrALAZINE INJ 20 MG/ML VIAL IV (00:10)
[2018-03-07] MEDS ORDERED: IPRATROPIUM 0.02% SOLN 0.5MG/2.5 ML NEB INH (00:30)
[2018-03-07] MEDS ORDERED: BISACODYL 5 MG TAB PO (00:30)
[2018-03-07] MEDS ORDERED: LEVALBUTEROL HFA 45MCG/ACT 15 GM INHALER INH (00:30)
[2018-03-07] MEDS: niCARdipine IV 40 MG in APPROPRIATE DILUENT 1 EA IV (01:03)
[2018-03-07] MEDS: WARFARIN SOD 2.5 MG TAB PO (02:35)
[2018-03-07] MEDS: BISOPROLOL FUMARATE 5 MG TAB PO ×2 (02:36→20:04)
[2018-03-07] MEDS: LOSARTAN 50 MG TAB PO ×2 (02:37→20:04)
[2018-03-07] MEDS: ACETAMINOPHEN TAB 650MG DOSE (2X325MG) PO (02:37)
[2018-03-07 05:02] LABS: HEMATOCRIT 32.9 % (36.0-47.0); HEMOGLOBIN 10.8 g/dl (12.0-15.5); MEAN CORPUSCULAR HEMOGLOBIN 28.7 pg (27.0-33.0); MEAN CORPUSCULAR HGB CONC 32.8 g/dl (32.0-36.5); MEAN CORPUSCULAR VOLUME 87.5 fl (80.0-96.0); PLATELET COUNT, AUTOMATED 297 10^3/uL (150-450); RED BLOOD COUNT 3.76 10^6/uL (4.00-5.40); RED CELL DISTRIBUTION WIDTH 12.9 % (11.5-14.5); WHITE BLOOD COUNT 7.4 10^3/uL (4.0-10.0)
[2018-03-07 05:13] LABS: INR 1.46
[2018-03-07 05:27] LABS: ANION GAP 10 MEQ/L (8-16); BLOOD UREA NITROGEN 17 MG/DL (7-18); CALCIUM LEVEL 8.8 MG/DL (8.8-10.2); CARBON DIOXIDE LEVEL 27 MEQ/L (21-32); CHLORIDE LEVEL 107 MEQ/L (98-107); CREATININE FOR GFR 1.16 MG/DL (0.55-1.30); GLOMERULAR FILTRATION RATE 48.4 (>39); GLUCOSE, FASTING 116 MG/DL (70-100); POTASSIUM SERUM 3.7 MEQ/L (3.5-5.1); SODIUM LEVEL 144 MEQ/L (136-145)
[2018-03-07] MEDS: LEVOTHYROXINE 137MCG TABLET (0.137MG) PO ×2 (06:00→06:47)
[2018-03-07 08:53] LABS: FERRITIN 365 NG/ML (8-252); IRON (FE) 30 UG/DL (50-170); LDH LACTATE DEHYDROGENASE 215 U/L (84-246); PERCENT SATURATION 10.6 % (13.2-45.0); TOTAL IRON BINDING CAPACITY 284 UG/DL (250-450)
[2018-03-07] MEDS: PANTOPRAZOLE 40MG TAB (PROTONIX) PO (08:59)
[2018-03-07] MEDS: FUROSEMIDE 40 MG/4 ML VIAL (J1940) IV (08:59)
[2018-03-07] MEDS: ASPIRIN 81 MG ENTERIC TAB PO (08:59)
[2018-03-07 09:50] LABS: ERYTHROCYTE SEDIMENTATION RATE 117 mm/hr (0-30)
[2018-03-07] MEDS: AMIODARONE 200 MG TAB (PACERONE) PO ×2 (14:58→20:03)
[2018-03-07] MEDS: WARFARIN SOD 3 MG TAB PO (17:23)
[2018-03-08] MEDS: LEVOTHYROXINE 137MCG TABLET (0.137MG) PO (05:08)
[2018-03-08 06:46] LABS: BASO % 0.3 % (0.0-1.0); EOS # 0.4 10^3/uL (0.0-0.50); EOS % 5.6 % (0.0-3.0); HEMATOCRIT 32.6 % (36.0-47.0); HEMOGLOBIN 10.6 g/dl (12.0-15.5); IMMATURE GRANULOCYTE % 0.6 % (0-3.0); LYMPH % 14.7 % (24.0-44.0); MEAN CORPUSCULAR HEMOGLOBIN 28.9 pg (27.0-33.0); MEAN CORPUSCULAR HGB CONC 32.5 g/dl (32.0-36.5); MEAN CORPUSCULAR VOLUME 88.8 fl (80.0-96.0); MONO # 0.6 10^3/uL (0.0-0.8); MONO % 8.3 % (0.0-5.0); NEUTROPHILS # 4.8 10^3/uL (1.8-7.7); NEUTROPHILS % 70.5 % (36.0-66.0); PLATELET COUNT, AUTOMATED 299 10^3/uL (150-450); RED BLOOD COUNT 3.67 10^6/uL (4.00-5.40); RED CELL DISTRIBUTION WIDTH 13.2 % (11.5-14.5); WHITE BLOOD COUNT 6.7 10^3/uL (4.0-10.0)
[2018-03-08 06:57] LABS: PROTHROMBIN TIME 19.3 SECONDS (12.1-14.4)
[2018-03-08 07:05] LABS: ANION GAP 6 MEQ/L (8-16); BLOOD UREA NITROGEN 20 MG/DL (7-18); CALCIUM LEVEL 8.3 MG/DL (8.8-10.2); CARBON DIOXIDE LEVEL 31 MEQ/L (21-32); CHLORIDE LEVEL 105 MEQ/L (98-107); CREATININE FOR GFR 1.28 MG/DL (0.55-1.30); GLOMERULAR FILTRATION RATE 43.2 (>39); GLUCOSE, FASTING 107 MG/DL (70-100); POTASSIUM SERUM 3.9 MEQ/L (3.5-5.1); SODIUM LEVEL 142 MEQ/L (136-145)
[2018-03-08] MEDS: PANTOPRAZOLE 40MG TAB (PROTONIX) PO (08:36)
[2018-03-08] MEDS: ASPIRIN 81 MG ENTERIC TAB PO (08:36)
[2018-03-08] MEDS: amLODIPine 5 MG TAB PO (08:36)
[2018-03-08] MEDS: AMIODARONE 200 MG TAB (PACERONE) PO ×2 (08:36→20:59)
[2018-03-08] MEDS: FUROSEMIDE 40 MG/4 ML VIAL (J1940) IV (08:37)
[2018-03-08] MEDS: WARFARIN SOD 3 MG TAB PO (17:11)
[2018-03-08] MEDS: BISOPROLOL FUMARATE 5 MG TAB PO (21:00)
[2018-03-08] MEDS: LOSARTAN 50 MG TAB PO (21:00)
[2018-03-09] MEDS: LEVOTHYROXINE 137MCG TABLET (0.137MG) PO (05:48)
[2018-03-09] MEDS: FUROSEMIDE 40 MG/4 ML VIAL (J1940) IV (09:39)
[2018-03-09] MEDS: amLODIPine 5 MG TAB PO (09:41)
[2018-03-09] MEDS: ASPIRIN 81 MG ENTERIC TAB PO (09:42)
[2018-03-09] MEDS: PANTOPRAZOLE 40MG TAB (PROTONIX) PO (09:42)
[2018-03-09] MEDS: AMIODARONE 200 MG TAB (PACERONE) PO (09:42)
[2018-03-09] MEDS: FUROSEMIDE 40 MG TAB PO (11:41)
[2018-03-10 12:09] LABS: FOLATE 19.6 NG/ML (>5.4)
== END 2018-03-09 12:47 | disposition home health service (06) | DRG 291 ==
LOC: M ED INP 03-07 00:19 → M MSPAV 03-08 18:10 → M ICU 03-07 02:08 → M ED 17:50
PROVIDERS: Hospitalist
DX: I13.0 Hypertensive heart and chronic kidney disease with heart failure and stage 1 through stage 4 chronic kidney disease, or unspecified chronic kidney disease (principal); I50.33 Acute on chronic diastolic (congestive) heart failure; Z68.43 Body mass index [BMI] 50.0-59.9, adult; I16.1 Hypertensive emergency; G47.33 Obstructive sleep apnea (adult) (pediatric); E66.01 Morbid (severe) obesity due to excess calories; K21.9 Gastro-esophageal reflux disease without esophagitis; I48.0 Paroxysmal atrial fibrillation; D33.3 Benign neoplasm of cranial nerves; R91.8 Other nonspecific abnormal finding of lung field; N18.3 Chronic kidney disease, stage 3 (moderate); J45.909 Unspecified asthma, uncomplicated; D64.9 Anemia, unspecified; I27.20 Pulmonary hypertension, unspecified; Z85.828 Personal history of other malignant neoplasm of skin; Z87.891 Personal history of nicotine dependence; E03.9 Hypothyroidism, unspecified; Z79.82 Long term (current) use of aspirin; Z79.01 Long term (current) use of anticoagulants; Z79.899 Other long term (current) drug therapy; Z88.2 Allergy status to sulfonamides; Z88.1 Allergy status to other antibiotic agents; Z88.8 Allergy status to other drugs, medicaments and biological substances

== ENCOUNTER 2018-03-10 20:52 | Inpatient (IN) | payer MEDICARE ==
[2018-03-10 20:08] LABS: BASO % 0.4 % (0.0-1.0); EOS # 0.4 10^3/uL (0.0-0.50); EOS % 3.2 % (0.0-3.0); HEMATOCRIT 36.9 % (36.0-47.0); HEMOGLOBIN 12.2 g/dl (12.0-15.5); IMMATURE GRANULOCYTE % 0.6 % (0-3.0); LYMPH # 1.7 10^3/uL (1.5-4.5); LYMPH % 15.7 % (24.0-44.0); MEAN CORPUSCULAR HEMOGLOBIN 28.6 pg (27.0-33.0); MEAN CORPUSCULAR HGB CONC 33.1 g/dl (32.0-36.5); MEAN CORPUSCULAR VOLUME 86.4 fl (80.0-96.0); MONO # 0.7 10^3/uL (0.0-0.8); MONO % 6.6 % (0.0-5.0); NEUTROPHILS # 7.9 10^3/uL (1.8-7.7); NEUTROPHILS % 73.5 % (36.0-66.0); PLATELET COUNT, AUTOMATED 415 10^3/uL (150-450); RED BLOOD COUNT 4.27 10^6/uL (4.00-5.40); WHITE BLOOD COUNT 10.8 10^3/uL (4.0-10.0)
[2018-03-10] MEDS: ASPIRIN 81 MG CHEW TABLET PO (20:12)
[2018-03-10] MEDS: METOPROLOL 5 MG/5 ML VIAL IV ×3 (20:14→20:31)
[2018-03-10 20:27] LABS: ANION GAP 12 MEQ/L (8-16); BLOOD UREA NITROGEN 20 MG/DL (7-18); CALCIUM LEVEL 8.4 MG/DL (8.8-10.2); CARBON DIOXIDE LEVEL 25 MEQ/L (21-32); CHLORIDE LEVEL 105 MEQ/L (98-107); CK-MB VALUE MASS < 1.0 NG/ML (<3.6); CPK CREATINE PHOSPHOKINASE 54 U/L (26-192); CREATININE FOR GFR 1.43 MG/DL (0.55-1.30); GLUCOSE, FASTING 118 MG/DL (70-100); MAGNESIUM LEVEL 2.3 MG/DL (1.8-2.4); MB/CK RELATIVE INDEX 1.85 (< OR =4); POTASSIUM SERUM 3.4 MEQ/L (3.5-5.1); SODIUM LEVEL 142 MEQ/L (136-145); TROPONIN I < 0.02 NG/ML (< 0.10)
[~2018-03-10 20:52] MED LIST changes: -ALBU1.25 IN; -ALBU17IN INH; -ASPI81TA2 PO; -BISO5TAB54 PO; -CARD4TAB2 PO; -CARD8TAB2 PO; -COZA100T2 PO; -FURO20TA2 PO; +METOPROLOL 5 MG/5 ML VIAL As Ordered; -OMEG100011 PO; -SYNT150T PO; -TAGA200T PO; -VITA200015 PO; -ZYRT10TA14 PO
[2018-03-10 20:56] LABS: INR 1.52; PROTHROMBIN TIME 18.5 SECONDS (12.1-14.4)
[2018-03-10] MEDS: LOSARTAN 50 MG TAB PO (21:00)
[2018-03-10] MEDS ORDERED: AMIODARONE HCL 150 MG/100 ML PREMIXED BAG (NEXTERONE) As Ordered (21:16)
[2018-03-10] MEDS: AMIODARONE HCL 150 MG in APPROPRIATE DILUENT 1 EA IV (21:32)
[2018-03-10] MEDS: BISOPROLOL FUM 2.5 MG PER 1/2TAB PO (22:31)
[2018-03-10] MEDS ORDERED: ACETAMINOPHEN TAB 650MG DOSE (2X325MG) PO (23:30)
[2018-03-11] MEDS: NS 1,000 ML IV (00:08)
[2018-03-11] MEDS ORDERED: ALBUTEROL 90 MCG/ACT 8GM HFA INHALER INH (00:30)
[2018-03-11] MEDS ORDERED: SODIUM CHLORIDE NASAL 0.65% SPRAY BTL (OCEAN) (00:30)
[2018-03-11 07:41] LABS: HEMATOCRIT 35.5 % (36.0-47.0); HEMOGLOBIN 11.6 g/dl (12.0-15.5); MEAN CORPUSCULAR HEMOGLOBIN 28.5 pg (27.0-33.0); MEAN CORPUSCULAR HGB CONC 32.7 g/dl (32.0-36.5); MEAN CORPUSCULAR VOLUME 87.2 fl (80.0-96.0); PLATELET COUNT, AUTOMATED 378 10^3/uL (150-450); RED BLOOD COUNT 4.07 10^6/uL (4.00-5.40); RED CELL DISTRIBUTION WIDTH 13.1 % (11.5-14.5); WHITE BLOOD COUNT 9.4 10^3/uL (4.0-10.0)
[2018-03-11 07:53] LABS: INR 1.64; PROTHROMBIN TIME 19.7 SECONDS (12.1-14.4)
[2018-03-11 07:57] LABS: ANION GAP 7 MEQ/L (8-16); BLOOD UREA NITROGEN 18 MG/DL (7-18); CALCIUM LEVEL 9.1 MG/DL (8.8-10.2); CARBON DIOXIDE LEVEL 29 MEQ/L (21-32); CHLORIDE LEVEL 103 MEQ/L (98-107); CREATININE FOR GFR 1.26 MG/DL (0.55-1.30); GLUCOSE, FASTING 99 MG/DL (70-100); POTASSIUM SERUM 3.5 MEQ/L (3.5-5.1); SODIUM LEVEL 139 MEQ/L (136-145)
[2018-03-11] MEDS: LEVOTHYROXINE 137MCG TABLET (0.137MG) PO (09:40)
[2018-03-11] MEDS: OCUVITE 1 TAB PO (09:41)
[2018-03-11] MEDS: VITAMIN D 1,000 INTERNATIONAL UNITS TABLET PO (09:41)
[2018-03-11] MEDS: FUROSEMIDE 40 MG TAB PO (09:41)
[2018-03-11] MEDS: OMEGA-3 1000MG CAPSULE PO (09:41)
[2018-03-11] MEDS: AMIODARONE 200 MG TAB (PACERONE) PO ×2 (09:43→20:59)
[2018-03-11] MEDS: ASPIRIN 81 MG ENTERIC TAB PO (09:43)
[2018-03-11] MEDS: amLODIPine 5 MG TAB PO (09:44)
[2018-03-11] MEDS: WARFARIN SOD 3 MG TAB PO (16:00)
[2018-03-11] MEDS: FUROSEMIDE 20 MG TAB PO (16:00)
[2018-03-11] MEDS: BISOPROLOL FUM 2.5 MG PER 1/2TAB PO (20:58)
[2018-03-11] MEDS: LOSARTAN 50 MG TAB PO (20:58)
[2018-03-12] MEDS: LEVOTHYROXINE 137MCG TABLET (0.137MG) PO (06:46)
[2018-03-12 06:56] LABS: BASO % 0.4 % (0.0-1.0); EOS # 0.4 10^3/uL (0.0-0.50); EOS % 5.2 % (0.0-3.0); HEMATOCRIT 34.8 % (36.0-47.0); HEMOGLOBIN 11.1 g/dl (12.0-15.5); LYMPH # 1.1 10^3/uL (1.5-4.5); LYMPH % 13.7 % (24.0-44.0); MEAN CORPUSCULAR HEMOGLOBIN 28.3 pg (27.0-33.0); MEAN CORPUSCULAR HGB CONC 31.9 g/dl (32.0-36.5); MEAN CORPUSCULAR VOLUME 88.8 fl (80.0-96.0); MONO # 0.6 10^3/uL (0.0-0.8); MONO % 8.3 % (0.0-5.0); NEUTROPHILS # 5.5 10^3/uL (1.8-7.7); NEUTROPHILS % 71.4 % (36.0-66.0); PLATELET COUNT, AUTOMATED 345 10^3/uL (150-450); RED BLOOD COUNT 3.92 10^6/uL (4.00-5.40); RED CELL DISTRIBUTION WIDTH 13.2 % (11.5-14.5); WHITE BLOOD COUNT 7.7 10^3/uL (4.0-10.0)
[2018-03-12 07:04] LABS: INR 1.76; PROTHROMBIN TIME 20.8 SECONDS (12.1-14.4)
[2018-03-12 07:21] LABS: ANION GAP 7 MEQ/L (8-16); BLOOD UREA NITROGEN 21 MG/DL (7-18); CALCIUM LEVEL 8.8 MG/DL (8.8-10.2); CARBON DIOXIDE LEVEL 29 MEQ/L (21-32); CHLORIDE LEVEL 105 MEQ/L (98-107); CREATININE FOR GFR 1.24 MG/DL (0.55-1.30); GLOMERULAR FILTRATION RATE 44.8 (>39); GLUCOSE, FASTING 104 MG/DL (70-100); POTASSIUM SERUM 3.8 MEQ/L (3.5-5.1); SODIUM LEVEL 141 MEQ/L (136-145)
[2018-03-12] MEDS: AMIODARONE 200 MG TAB (PACERONE) PO (09:35)
[2018-03-12] MEDS: FUROSEMIDE 40 MG TAB PO (09:35)
[2018-03-12] MEDS: VITAMIN D 1,000 INTERNATIONAL UNITS TABLET PO (09:35)
[2018-03-12] MEDS: OCUVITE 1 TAB PO (09:35)
[2018-03-12] MEDS: ASPIRIN 81 MG ENTERIC TAB PO (09:36)
[2018-03-12] MEDS: amLODIPine 5 MG TAB PO (09:36)
[2018-03-12] MEDS: OMEGA-3 1000MG CAPSULE PO (11:00)
== END 2018-03-12 14:12 | disposition home health service (06) | DRG 309 ==
LOC: M ED 20:52 → M ED INP 23:20 → M MSPAV 03-11 15:01
DX: I48.0 Paroxysmal atrial fibrillation (principal); I50.32 Chronic diastolic (congestive) heart failure; I13.0 Hypertensive heart and chronic kidney disease with heart failure and stage 1 through stage 4 chronic kidney disease, or unspecified chronic kidney disease; L12.9 Pemphigoid, unspecified; Z68.43 Body mass index [BMI] 50.0-59.9, adult; G47.33 Obstructive sleep apnea (adult) (pediatric); R91.8 Other nonspecific abnormal finding of lung field; D64.9 Anemia, unspecified; I27.20 Pulmonary hypertension, unspecified; M17.0 Bilateral primary osteoarthritis of knee; E66.01 Morbid (severe) obesity due to excess calories; N18.3 Chronic kidney disease, stage 3 (moderate); J45.909 Unspecified asthma, uncomplicated; D33.3 Benign neoplasm of cranial nerves; K21.9 Gastro-esophageal reflux disease without esophagitis; Z85.828 Personal history of other malignant neoplasm of skin; Z87.891 Personal history of nicotine dependence; Z79.01 Long term (current) use of anticoagulants; Z79.82 Long term (current) use of aspirin; Z79.899 Other long term (current) drug therapy; Z88.2 Allergy status to sulfonamides; Z88.8 Allergy status to other drugs, medicaments and biological substances; Z88.1 Allergy status to other antibiotic agents

== ENCOUNTER → 2018-03-31 | Outpatient (CLI) | payer MEDICARE | LOC: M RAD 11:34 | DX: M16.0 Bilateral primary osteoarthritis of hip (principal); M25.78 Osteophyte, vertebrae; D89.89 Other specified disorders involving the immune mechanism, not elsewhere classified | CPT/HCPCS: 77075 ==

== ENCOUNTER → 2018-04-17 | Outpatient (CLI) | payer MEDICARE ==
[2018-04-17 11:10] LABS: C REACTIVE PROTEIN QUANTITATIV 3.46 MG/DL (0.00-0.30); FREE T3 1.6 PG/ML (2.2-4.0); FREE T4 1.53 NG/DL (0.76-1.46); NT-PRO BNP 153 PG/ML (<450)
[2018-04-17 11:10] LABS: LDH LACTATE DEHYDROGENASE 229 U/L (84-246)
[2018-04-17 11:29] LABS: ERYTHROCYTE SEDIMENTATION RATE 84 mm/hr (0-30)
== END ==
LOC: M LAB 09:59
DX: I50.83 High output heart failure (principal); R70.0 Elevated erythrocyte sedimentation rate; R74.0 Nonspecific elevation of levels of transaminase and lactic acid dehydrogenase [LDH]
CPT/HCPCS: 83615

== ENCOUNTER 2018-04-22 10:08 | Emergency (ER) | payer MEDICARE ==
[2018-04-22 10:58] LABS: BASO % 0.5 % (0.0-1.0); EOS # 0.2 10^3/uL (0.0-0.50); EOS % 2.4 % (0.0-3.0); HEMATOCRIT 39.6 % (36.0-47.0); HEMOGLOBIN 12.8 g/dl (12.0-15.5); IMMATURE GRANULOCYTE % 0.4 % (0-3.0); LYMPH # 0.9 10^3/uL (1.5-4.5); LYMPH % 10.7 % (24.0-44.0); MEAN CORPUSCULAR HEMOGLOBIN 28.6 pg (27.0-33.0); MEAN CORPUSCULAR HGB CONC 32.3 g/dl (32.0-36.5); MEAN CORPUSCULAR VOLUME 88.6 fl (80.0-96.0); MONO # 0.6 10^3/uL (0.0-0.8); MONO % 7.6 % (0.0-5.0); NEUTROPHILS # 6.3 10^3/uL (1.8-7.7); NEUTROPHILS % 78.4 % (36.0-66.0); PLATELET COUNT, AUTOMATED 306 10^3/uL (150-450); RED BLOOD COUNT 4.47 10^6/uL (4.00-5.40); RED CELL DISTRIBUTION WIDTH 14.4 % (11.5-14.5)
[2018-04-22] MEDS: AMIODARONE HCL 150 MG in APPROPRIATE DILUENT 1 EA IV (11:13)
[2018-04-22 11:24] LABS: ALBUMIN 3.5 GM/DL (3.2-5.2); ALBUMIN/GLOBULIN RATIO 0.74 (1.00-1.93); ALKALINE PHOSPHATASE 75 U/L (45-117); ALT/SGPT 17 U/L (12-78); ANION GAP 8 MEQ/L (8-16); AST/SGOT 18 U/L (7-37); BILIRUBIN,DIRECT < 0.1 MG/DL (0.0-0.2); BILIRUBIN,TOTAL 0.3 MG/DL (0.2-1.0); BLOOD UREA NITROGEN 21 MG/DL (7-18); CARBON DIOXIDE LEVEL 26 MEQ/L (21-32); CHLORIDE LEVEL 105 MEQ/L (98-107); CK-MB VALUE MASS < 1.0 NG/ML (<3.6); CPK CREATINE PHOSPHOKINASE 55 U/L (26-192); CREATININE FOR GFR 1.36 MG/DL (0.55-1.30); GLOMERULAR FILTRATION RATE 40.2 (>39); GLUCOSE, FASTING 108 MG/DL (70-100); LIPASE 498 U/L (73-393); MAGNESIUM LEVEL 2.3 MG/DL (1.8-2.4); MB/CK RELATIVE INDEX 1.82 (< OR =4); NT-PRO BNP 364 PG/ML (<450); POTASSIUM SERUM 3.9 MEQ/L (3.5-5.1); SODIUM LEVEL 139 MEQ/L (136-145); TOTAL PROTEIN 8.2 GM/DL (6.4-8.2); TROPONIN I < 0.02 NG/ML (< 0.10)
[2018-04-22 11:35] LABS: INR 1.46; PROTHROMBIN TIME 17.9 SECONDS (12.1-14.4)
[2018-04-22 11:36] LABS: PARTIAL THROMBOPLASTIN TIME 34.4 SECONDS (25.4-37.6)
[2018-04-22] MEDS: METOPROLOL 5 MG/5 ML VIAL IV (11:49)
[2018-04-22 15:22] LABS: CK-MB VALUE MASS < 1.0 NG/ML (<3.6); CPK CREATINE PHOSPHOKINASE 47 U/L (26-192); MB/CK RELATIVE INDEX 2.13 (< OR =4); TROPONIN I < 0.02 NG/ML (< 0.10)
== END 2018-04-22 16:20 | disposition home or self-care (01) ==
LOC: M ED 10:08
DX: R07.9 Chest pain, unspecified (principal); I48.0 Paroxysmal atrial fibrillation; I50.9 Heart failure, unspecified; F17.210 Nicotine dependence, cigarettes, uncomplicated; Z98.61 Coronary angioplasty status
CPT/HCPCS: 71045

== ENCOUNTER → 2018-04-30 | Outpatient (CLI) | payer MEDICARE ==
[~2018-04-30] MED LIST changes: +ALBU1.25 IN; +ALBU17IN INH; +AMIO200T; +AMIO200T PO; +AMLO5TAB4 PO; +ASPI1TAB PO; +ASPI81TA2 PO; +ASPI81TAEC PO; +BISO5TAB5 PO; +BISO5TAB54 PO; +CARD4TAB2 PO; +CARD8TAB2 PO; +COUM1TAB19 PO; +COUM2.5T17 PO; +COZA100T2 PO; +DOXA8TAB2 PO; +FURO20TA2 PO; +FURO40TA2 PO; +ISOS30TA4 PO; +LEVO137T2; +LOSA-4; +LOSA-4 PO; -METOPROLOL 5 MG/5 ML VIAL As Ordered; +NITR0.4S14; +NITR4TASL SL; +OCEA0.654; +OCUVTAB4 PO; +OMEG100011 PO; +OMEG10002 PO; +PRED20TA PO; +PRESCAP PO; +PROAAER10 INH; +SYNT137T7 PO; +SYNT150T PO; +SYST1SOL OU; +TAGA200T PO; +VITA100066 PO; +VITA200015 PO; +WARF-18; +ZYRT10TA14 PO
--- NOTE | 2018-04-30 15:01 | REP ---
Digital screening bilateral mammography with CAD and 3-D tone was synthesis: Comparison mammography December 21, 2010 and September 30, 2009 as well as July 01, 2006. Findings: There are several new nodular opacities in the anterior third of the left breast centrally which merit further evaluation. These range in size from 11-21 mm. They are well circumscribed. Two of them appear to have a notch along one wall compatible with an intramammary lymph node. There are stable nodular densities bilaterally representing intramammary lymph nodes which are unchanged from multiple prior studies. Vascular calcification is noted. No spiculation or microcalcification is seen. 3-D tomosynthesis imaging shows no additional abnormality. Impression: There are three nodular neodensities in the anterior third of the left breast which merit further evaluation. BIRADS/ACR category 0 mammogram, incomplete. Additional imaging and/or prior images needed. Diagnostic left breast mammography and focused left breast sonography recommended. BI-RADS/ACR category 0 mammogram, incomplete. Additional imaging and/or prior mammograms for comparison. This mammogram was interpreted with the aid of an FDA-approved computer-aided detection system. The patient states that she/he has not had a clinical breast exam in over a year. The patient letter being requested is m#[id number] . This patient's estimated Tyrer-Cuzick lifetime risk assessment for the breast cancer is 4.0 %.
== END ==
LOC: M WHC 10:52
PROVIDERS: ATTEND Internal Medicine Medical Oncology
DX: Z12.31 Encounter for screening mammogram for malignant neoplasm of breast (principal); R92.8 Other abnormal and inconclusive findings on diagnostic imaging of breast; D47.2 Monoclonal gammopathy

== ENCOUNTER → 2018-06-04 | Outpatient (REF) | payer MEDICARE ==
[~2018-06-04] MED LIST changes: -AMLO5TAB4 PO; +AMLO5TAB6 PO; +DIAZ2TAB PO; +LIOT25TA2 PO; -LOSA-4; -LOSA-4 PO; +LOSA100T50; +LOSA100T50 PO; +SPIR-10 PO
[2018-06-04 17:27] LABS: ALBUMIN 3.5 GM/DL (3.2-5.2); BILIRUBIN,TOTAL 0.3 MG/DL (0.2-1.0); CREATININE FOR GFR 1.35 MG/DL (0.55-1.30); GLOMERULAR FILTRATION RATE 40.6 (>39); POTASSIUM SERUM 3.7 MEQ/L (3.5-5.1); TOTAL PROTEIN 7.6 GM/DL (6.4-8.2)
[2018-06-04 17:33] LABS: FREE T3 1.4 PG/ML (2.2-4.0); FREE T4 1.03 NG/DL (0.76-1.46); THYROID STIMULATING HORMONE 48.4 uIU/ML (0.358-3.740)
== END ==
LOC: M SFHCPLAZ 14:33
PROVIDERS: ATTEND Family Medicine
DX: E03.9 Hypothyroidism, unspecified (principal); R94.6 Abnormal results of thyroid function studies
CPT/HCPCS: 36415; 80053; 84439; 84443; 84481; G0463

== ENCOUNTER 2018-06-10 15:50 | Inpatient (IN) | payer MEDICARE ==
[~2018-06-10] VITALS: Ht 152.4 cm; Wt 126.4 kg
[~2018-06-10 15:50] MED LIST changes: -DIAZ2TAB PO; -LIOT25TA2 PO; -SPIR-10 PO
[2018-06-10] MEDS ORDERED: SPIR-10 PO (16:14)
[2018-06-10 16:40] LABS: BASO % 0.4 % (0.0-1.0); EOS # 0.3 10^3/uL (0.0-0.50); EOS % 3.5 % (0.0-3.0); HEMOGLOBIN 12.6 g/dl (12.0-15.5); LYMPH # 0.7 10^3/uL (1.5-4.5); LYMPH % 9.9 % (24.0-44.0); MEAN CORPUSCULAR HEMOGLOBIN 28.4 pg (27.0-33.0); MEAN CORPUSCULAR HGB CONC 32.3 g/dl (32.0-36.5); MONO # 0.5 10^3/uL (0.0-0.8); NEUTROPHILS # 5.7 10^3/uL (1.8-7.7); NEUTROPHILS % 78.6 % (36.0-66.0); PLATELET COUNT, AUTOMATED 215 10^3/uL (150-450); RED BLOOD COUNT 4.43 10^6/uL (4.00-5.40); WHITE BLOOD COUNT 7.2 10^3/uL (4.0-10.0)
[2018-06-10 16:51] LABS: INR 1.62; PROTHROMBIN TIME 19.5 SECONDS (12.1-14.4)
[2018-06-10 17:20] LABS: ALBUMIN 3.4 GM/DL (3.2-5.2); ALT/SGPT 19 U/L (12-78); BILIRUBIN,DIRECT < 0.1 MG/DL (0.0-0.2); BILIRUBIN,TOTAL 0.3 MG/DL (0.2-1.0); BLOOD UREA NITROGEN 18 MG/DL (7-18); CALCIUM LEVEL 8.7 MG/DL (8.8-10.2); CARBON DIOXIDE LEVEL 28 MEQ/L (21-32); CHLORIDE LEVEL 104 MEQ/L (98-107); CK-MB VALUE MASS < 1.0 NG/ML (<3.6); CPK CREATINE PHOSPHOKINASE 70 U/L (26-192); CREATININE FOR GFR 1.41 MG/DL (0.55-1.30); GLOMERULAR FILTRATION RATE 38.6 (>39); GLUCOSE, FASTING 97 MG/DL (70-100); MB/CK RELATIVE INDEX 1.43 (< OR =4); NT-PRO BNP 160 PG/ML (<450); POTASSIUM SERUM 4.1 MEQ/L (3.5-5.1); SODIUM LEVEL 141 MEQ/L (136-145); TOTAL PROTEIN 7.3 GM/DL (6.4-8.2); TROPONIN I < 0.02 NG/ML (< 0.10)
--- NOTE | 2018-06-10 18:13 | REP ---
PA and lateral chest: Comparisons are 04/22/2018 and 03/10/2018. There are linear densities in the left upper lobe, unchanged, compatible with parenchymal scarring. There is cardiomegaly, unchanged. There are no acute infiltrates or pleural effusions. The katelynn, mediastinum, and skeletal structures are unchanged. Impression: No acute cardiopulmonary findings. Cardiomegaly, unchanged. Left upper lobe linear scarring, unchanged. Electronically Signed by Giuseppe Wagner MD 06/10/2018 06:04 P
[2018-06-10 19:21] LABS: FREE T4 0.98 NG/DL (0.76-1.46)
[2018-06-10] MEDS ORDERED: FUROSEMIDE 40 MG/4 ML VIAL (J1940) IV ONE (19:30)
[2018-06-10] MEDS ORDERED: LIOT25TA2 PO (20:22)
[2018-06-10] MEDS ORDERED: DIAZ2TAB PO (20:22)
--- NOTE | 2018-06-10 21:25 | ECGEPIP ---
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
[2018-06-10] MEDS ORDERED: ALBUTEROL 90 MCG/ACT 8GM HFA INHALER INH PRN (21:30)
[2018-06-10] MEDS ORDERED: NITROGLYCERIN 0.4 MG SUBL TABLET SL PRN (21:30)
[2018-06-10] MEDS ORDERED: SODIUM CHLORIDE NASAL 0.65% SPRAY BTL (OCEAN) PRN (21:30)
[2018-06-10] MEDS ORDERED: hydrALAZINE INJ 20 MG/ML VIAL IV ONE (21:30)
[2018-06-10] MEDS ORDERED: POLYVINYL ALCOHOL OPHTH SOLN 15 ML(LIQUITEARS) OU PRN (21:30)
[2018-06-10] MEDS ORDERED: diazePAM 2 MG TAB PO PRN (21:30)
[2018-06-10] MEDS ORDERED: PILL CRUSHER/CUTTER 1 EACH XX PRN (21:45)
[2018-06-10] MEDS: LOSARTAN 50 MG TAB PO SCH (21:46)
--- NOTE | 2018-06-10 23:11 | HPE ---
DATE OF ADMISSION: 06/10/2018 CHIEF COMPLAINT: Progressively worsening dyspnea on exertion, states she has also gained 8 pounds. HISTORY OF THE PRESENT ILLNESS: The patient is a 77-year-old female. She has significant past medical history of diastolic congestive heart failure, atrial fibrillation - on Coumadin, which she has been holding for the past 4 days to have a breast biopsy completed tomorrow at 1:30, obstructive sleep apnea - on continuous positive airway pressure (CPAP), hypertension, gastroesophageal reflux disease (GERD), chronic kidney disease stage III, skin cancer on the nose, status post excisional biopsy, as well as acoustic neuroma. She presents to the emergency room with a 2-3 day history of worsening dyspnea on exertion. The patient is somewhat of a poor historian. She states she usually finds it very difficult to ambulate because she has bad knees. She states she can only walk a few feet before she is short of breath. However, she states that she had not been able to walk significantly more prior to this. She gives a poor description of her exercise tolerance; however, she states she feels that she is more short of breath, as well as she has been gaining weight. She states that she has gained 8 pounds over the last few days. She denies any fevers, chills, cough, chest pain, urinary symptoms, abdominal pain, constipation, or diarrhea. In the emergency room, the patient's blood pressure was noted to be quite significantly elevated; on admission, it is 215/84. She was given some Lasix. Blood pressure came down to the 190s over 80s. She has since not taken her daily home medications, which I will give her right away. She also has been holding her Coumadin, her INR is 1.62, for the last 3 days. She is supposed to hold it for 4 days for biopsy of her breast lump. Her breast biopsy is scheduled as an outpatient for 06/11/2018. Of note, in her history, she has also had very difficult to control hypothyroidism. She has previously been on multiple doses of Synthroid, maxed out at 150. She has been subsequently titrated down. She follows with her primary care provider (PCP), Dr. Elton Morales. She states that she continues to have overt hyperthyroid symptoms, like losing her hair, palpitations, anxiety, despite the fact that her TSH remains elevated. She is to be started on T3 liothyronine today by her PCP. His prescription was sent; however, she has not had the opportunity to take her T3. She has been worked up extensively for difficult to control subclinical hypothyroidism by her primary care provider, so I will just continue her current dose since she has already had extensive workup for this condition. A TSH in the emergency room (ER) is noted to be elevated at 64. However, free T4 is 0.98. PAST MEDICAL HISTORY: See history of the present illness. PAST SURGICAL HISTORY: She has had sinus surgery, oophorectomy, hysterectomy, as well as four sections. HOME MEDICATIONS: Include: - albuterol - amiodarone - Norvasc - aspirin - vitamin D - diazepam - Lasix 40 mg daily - Synthroid 68.5 mcg by mouth daily - liothyronine 25, which she was supposed to start today; still has not taken her first dose. - losartan 100 mg, which she has not taken today - nitroglycerin - spironolactone - Coumadin 3 mg, which she has been holding for the last 3 days in order to have her breast biopsy completed on 06/11/2018. ALLERGIES: CAPTOPRIL, CEPHALOSPORIN, CITALOPRAM, HYDROCHLOROTHIAZIDE, QUINOLONES, SALMETEROL, SUCRALFATE, SULFA DRUGS, VALSARTAN, VERAPAMIL. All the reactions are unknown. REVIEW OF SYSTEMS: A 12-point review of systems was completed, all of which were negative except those listed in the history of the present illness. FAMILY HISTORY: Cancer and diabetes. ADMISSION VITAL SIGNS: Notable for a temperature of 97.8, pulse of 75, respirations of 20, saturating at 96% on room air, blood pressure of 215/84. PHYSICAL EXAM: General: She is well nourished, in no apparent distress. Head is normocephalic, atraumatic Eyes: Extraocular movements are intact. Pupils equal, round, reactive to light. She has a bandage on the nasal bridge, status post excisional biopsy of skin cancer. Neck is supple. No jugular venous pressure (JVP). Lungs: Poor effort due to body habitus, but no discernible crackles or wheezing. Cardiovascular: Regular rate and rhythm. Normal S1, S2. No murmurs, gallops, or rubs. Abdomen: Soft, nontender, nondistended. Positive bowel sounds. No rebound or guarding. Extremities: Trace pitting edema. No calf tenderness. Skin: Intact. No rashes, lesions, or breakdown. Neurological: She is alert and oriented times three. No focal deficits appreciated on exam. LABS AND IMAGING: Completed in the emergency room. White count of 7, hemoglobin and hematocrit of 12 over 39, platelet count of 215. Coagulation (coag) shows an INR of 1.62. She is intentionally holding her Coumadin for biopsy. Chemistry shows a BUN and creatinine of 18 over 1.41, baseline creatinine of 1.3, free T4 of 0.98 but TSH of 64. Troponin is negative. BNP of 160. Chest x-ray reads: No acute cardiopulmonary disease. Cardiomegaly. Left upper lobe linear scarring, unchanged. After reviewing the imaging myself, it is unable to assess whether or not the patient has small bilateral pleural effusions; it may be secondary to body habitus. ASSESSMENT AND PLAN: Uncontrolled hypertension, hypertensive urgency, likely in the setting of medication noncompliance. The patient has not taken her oral losartan yet. Will give her oral losartan, as well as give hydralazine 10 mg IV push once. The goal is to decrease the blood pressure gradually to the 160s. Her home blood pressure medications may need to be adjusted while she is in the hospital. For mild congestive heart failure exacerbation, likely secondary to uncontrolled hypertension, rule out acute coronary syndrome (ACS). The patient does not appear to be infectious, but would also send a UA. Chest x-ray shows no infectious signs. Will do Lasix 40 mg twice a day IV, strict intake and output, daily weights, elevate the head of the bed. Echo completed recently shows normal ejection fraction (EF). Will keep the patient on remote telemetry (tele). For obstructive sleep apnea, continue her CPAP. Chronic kidney disease stage III creatinine and stable at baseline. Atrial fibrillation, on Coumadin. She is in rhythm control. She will continue her amiodarone. She is holding her Coumadin to have a breast biopsy. INR is 1.62. Daily INRs. Continue to hold Coumadin. Subclinical hypothyroidism. She has been followed extensively by her primary care provider (PCP), Dr. Berto Morales. Will continue Synthroid 68 and start her on the liothyronine, which she was sent a prescription for today by her PCP; however, did not get the opportunity to take it, so will continue 25 mcg of this. History of acoustic neuroma. Supportive deep vein thrombosis (DVT) prophylaxis. She is on Coumadin, which is being held. Gastrointestinal (GI) prophylaxis not indicated. Diet: Cardiac Fluid restriction: Two liters per day. To be placed on the medical-surgical telemetry unit. MTDD
[2018-06-10] MEDS ORDERED: ACETAMINOPHEN TAB 650MG DOSE (2X325MG) PO ONE (23:30)
[2018-06-10 23:34] VITALS: BP 172/82
[2018-06-11 02:00] VITALS: BP 100/50
[2018-06-11 02:52] LABS: APPEARANCE, URINE CLEAR (CLEAR); BACTERIA, URINE AUTO NEGATIVE (NEGATIVE); BILIRUBIN, URINE AUTO NEGATIVE (NEGATIVE); BLOOD, URINE BLOOD NEGATIVE (NEGATIVE); COLOR, URINE YELLOW (YELLOW); GLUCOSE, URINE (UA) AUTO NEGATIVE (NEGATIVE); KETONE, URINE AUTO NEGATIVE (NEGATIVE); LEUKOCYTE ESTERASE, URINE AUTO TRACE (NEGATIVE); MUCUS, URINE SMALL (NEGATIVE); NITRITE, URINE AUTO NEGATIVE (NEGATIVE); PROTEIN, URINE AUTO NEGATIVE (NEGATIVE); RBC, URINE AUTO 1 /HPF (0-3); SPECIFIC GRAVITY URINE AUTO 1.015 (1.002-1.035); SQUAMOUS EPITHELIAL CELL UR AU 0 /HPF (0-6); UROBILINOGEN, URINE AUTO 0.2 mg/dL (0.0-2.0); WBC, URINE AUTO 3 /HPF (0-3)
[2018-06-11 06:00] VITALS: BP 150/48
[2018-06-11 06:26] LABS: HEMATOCRIT 37.5 % (36.0-47.0); HEMOGLOBIN 12.2 g/dl (12.0-15.5); MEAN CORPUSCULAR HGB CONC 32.5 g/dl (32.0-36.5); PLATELET COUNT, AUTOMATED 227 10^3/uL (150-450); RED BLOOD COUNT 4.36 10^6/uL (4.00-5.40); WHITE BLOOD COUNT 6.2 10^3/uL (4.0-10.0)
[2018-06-11 06:47] LABS: INR 1.62; PROTHROMBIN TIME 19.5 SECONDS (12.1-14.4)
[2018-06-11 06:52] LABS: BLOOD UREA NITROGEN 17 MG/DL (7-18); CALCIUM LEVEL 8.6 MG/DL (8.8-10.2); CARBON DIOXIDE LEVEL 27 MEQ/L (21-32); CHLORIDE LEVEL 104 MEQ/L (98-107); GLOMERULAR FILTRATION RATE 42.4 (>39); GLUCOSE, FASTING 93 MG/DL (70-100); POTASSIUM SERUM 3.5 MEQ/L (3.5-5.1); SODIUM LEVEL 140 MEQ/L (136-145); TROPONIN I < 0.02 NG/ML (< 0.10)
[2018-06-11] MEDS: LEVOTHYROXINE 137MCG TABLET (0.137MG) PO SCH (06:52)
[2018-06-11] MEDS: ACETAMINOPHEN TAB 650MG DOSE (2X325MG) PO PRN ×2 (06:53→20:36)
[2018-06-11] MEDS: FUROSEMIDE 40 MG/4 ML VIAL (J1940) IV SCH ×2 (06:53→18:18)
[2018-06-11] MEDS: SPIRONOLACTONE 25 MG TAB PO SCH (09:03)
[2018-06-11] MEDS: OCUVITE 1 TAB PO SCH (09:08)
[2018-06-11] MEDS: ASPIRIN 81 MG ENTERIC TAB PO SCH (09:08)
[2018-06-11] MEDS: amLODIPine 5 MG TAB PO SCH (09:08)
[2018-06-11] MEDS: AMIODARONE 200 MG TAB (PACERONE) PO SCH (09:08)
[2018-06-11] MEDS: VITAMIN D 1,000 INTERNATIONAL UNITS TABLET PO SCH (09:08)
[2018-06-11] MEDS: LIOTHYRONINE 25 MCG TAB PO SCH (11:04)
[2018-06-11] MEDS: OMEGA-3 1000MG CAPSULE PO SCH (11:04)
[2018-06-11 14:00] VITALS: BP 195/80
--- NOTE | 2018-06-11 14:57 | IPNPDOC ---
Text Note Date of Service The patient was seen on 06/11/18. NOTE Subjective: Patient is a 77 year old female with a PMHx of HTN, Diastolic CHF, A. fib (on Coumadin - has been held for 4 days prior to arrival), JESSY on CPAP, Hypothyroidism, CKD3, Skin cancer on nose s/p excision, Acoustic neuroma, GERD who presented to the ER with complaints of shortness of breath with exertion. In the emergency room, patient was found to be hypertensive with systolic blood pressures of 200. She is admitted to the hospitalist service for further evaluation, treatment for suspected diastolic CHF exacerbation. Patient was seen and examined at the bedside. She notes that her breathing is doing better. She denies any significant chest pain, palpitations or cough. Denies nausea, vomiting, abdominal pain, constipation or diarrhea. Denies any discomfort with urination. Objective: Vitals (See below) General: Lying in bed, no acute distress, comfortable, AAOx3 HEENT: NC, AT CVS: RRR, +S1S2 Lungs: Fair air entry b/l, -w/r/r Abdomen: Soft, ND, NT, +Morbid obesity Extremities: - Edema, - Calf tenderness Assessment and plan: Hypertensive urgency - possibly 2/2 medication non-compliance - BP better controlled - c/w Amlodipine and Losartan SOB - possibly 2/2 diastolic CHF exacerbation - possibly 2/2 above - Patient noted some improvement in her breathing - Physical without any significant signs of fluid overload - ECHO 02/2018: Preserved EF, G1DD, Mitral / tricuspic rerug, with mild Pulmonary HTN - c/w strict ins/outs, daily weights, head of bed elevation - c/w Diuresis Breast biopsy - Coumadin was held for 4 days for scheduled biopsy today - Will get L breast biopsy completed today A. fib - c/w Amiodarone - Will hold Coumadin; resume tomorrow JESSY on CPAP - May allow home CPAP use Hypothyroidism - Elevated TSH - Has recently had T3 started in addition to Levothyroxine - Will start T3 here and have outpatient f/u with PCP CKD3 - Cr appears at baseline Skin cancer on nose s/p excision Acoustic neuroma DVT prophylaxis - c/w SCDs/TEDs VS,Fishbone, I+O VS, Fishbone, I+O Laboratory Tests 06/10/18 16:35 Red Blood Count 4.43, Mean Corpuscular Volume 88.0, Mean Corpuscular Hemoglobin 28.4, Mean Corpuscular Hemoglobin Concent 32.3, Red Cell Distribution Width 14.5, Neutrophils (%) (Auto) 78.6 H, Lymphocytes (%) (Auto) 9.9 L, Monocytes (%) (Auto) 7.0 H, Eosinophils (%) (Auto) 3.5 H, Basophils (%) (Auto) 0.4, Neutrophils # (Auto) 5.7, Lymphocytes # (Auto) 0.7 L, Monocytes # (Auto) 0.5, Eosinophils # (Auto) 0.3, Basophils # (Auto) 0.0 06/11/18 05:31 Red Blood Count 4.36, Mean Corpuscular Volume 86.0, Mean Corpuscular Hemoglobin 28.0, Mean Corpuscular Hemoglobin Concent 32.5, Red Cell Distribution Width 14.9 H, Calcium Level 8.6 L Vital Signs Date Time Temp Pulse Resp B/P (MAP) Pulse Ox O2 Delivery O2 Flow Rate FiO2 06/11/18 09:08 60 124/56 06/11/18 06:00 97.3 16 06/11/18 02:00 96 06/10/18 19:13 Room Air I&O- Last 24 Hours up to 6 AM 06/11/18 06:00 Intake Total 360 ml Output Total 1350 ml Balance -990 ml HAMIDA CRUZ MD Jun 11, 2018 14:57
--- NOTE | 2018-06-11 15:02 | REP ---
POSTBIOPSY MAMMOGRAM, LEFT BREAST: ML and CC views of the left breast performed status post ultrasound-guided aspiration of dilated ducts in the region of the 5-o'clock left breast anteriorly, as well as ultrasound-guided biopsy of smaller nodular areas at 4-o'clock also felt to represent focally dilated ducts or complex cystic or solid nodules. A metallic clips is seen at both of these locations. Previously noted dilated ducts anteriorly at 5 -o'clock are not definitely visualized on today's mammogram. There is postbiopsy hemorrhage at the biopsy site at 4-o'clock. Electronically Signed by Giuseppe Urban MD 06/12/2018 10:45 A
[2018-06-11 15:55] VITALS: BP 168/71
[2018-06-11] MEDS: LOSARTAN 50 MG TAB PO SCH (20:36)
[2018-06-11 22:00] VITALS: BP_SYST 166; BP_SYST 168; BP_DIAS 77
--- NOTE | 2018-06-12 00:35 | ECGEPIP ---
Stationary ECG Study 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 NO REMARKABLE CHANGES BUT BRADYCARDIA Electronically Signed On 06-12-2018 0:35:08 EST by Fabien Boyle
[2018-06-12] MEDS: LEVOTHYROXINE 137MCG TABLET (0.137MG) PO SCH (05:53)
[2018-06-12] MEDS: FUROSEMIDE 40 MG/4 ML VIAL (J1940) IV SCH (05:53)
[2018-06-12 06:00] VITALS: BP 139/63
[2018-06-12 06:06] LABS: HEMATOCRIT 39.3 % (36.0-47.0); HEMOGLOBIN 12.6 g/dl (12.0-15.5); MEAN CORPUSCULAR HEMOGLOBIN 28.3 pg (27.0-33.0); MEAN CORPUSCULAR HGB CONC 32.1 g/dl (32.0-36.5); MEAN CORPUSCULAR VOLUME 88.1 fl (80.0-96.0); PLATELET COUNT, AUTOMATED 230 10^3/uL (150-450); RED BLOOD COUNT 4.46 10^6/uL (4.00-5.40); WHITE BLOOD COUNT 6.5 10^3/uL (4.0-10.0)
[2018-06-12 06:18] LABS: INR 1.39; PROTHROMBIN TIME 17.3 SECONDS (12.1-14.4)
[2018-06-12 06:30] LABS: CALCIUM LEVEL 8.6 MG/DL (8.8-10.2); CREATININE FOR GFR 1.53 MG/DL (0.55-1.30); GLOMERULAR FILTRATION RATE 35.1 (>39); POTASSIUM SERUM 3.8 MEQ/L (3.5-5.1)
[2018-06-12] MEDS: SPIRONOLACTONE 25 MG TAB PO SCH (08:11)
[2018-06-12] MEDS: OCUVITE 1 TAB PO SCH (08:11)
[2018-06-12] MEDS: ASPIRIN 81 MG ENTERIC TAB PO SCH (08:11)
[2018-06-12] MEDS: OMEGA-3 1000MG CAPSULE PO SCH (08:11)
[2018-06-12] MEDS: AMIODARONE 200 MG TAB (PACERONE) PO SCH (08:12)
[2018-06-12] MEDS: LIOTHYRONINE 25 MCG TAB PO SCH (08:12)
[2018-06-12] MEDS: amLODIPine 5 MG TAB PO SCH (08:13)
[2018-06-12] MEDS: VITAMIN D 1,000 INTERNATIONAL UNITS TABLET PO SCH (08:14)
--- NOTE | 2018-06-12 10:19 | REP ---
ULTRASOUND-GUIDED LEFT BREAST BIOPSY The procedure was performed under the direct supervision of Dr. Urban. The patient has a history of dilated duct at the 4 o'clock position and at the 5 o'clock position seen on a previous ultrasound dated 05/14/2018. The risks and benefits of the procedure were explained to the patient and informed consent was obtained. The dilated duct 50 4 o'clock and 5 o'clock positions were localized using ultrasound guidance. The skin was prepped and draped in a sterile fashion. The ducts at the 5 o'clock position were addressed first. 1% lidocaine was used as a local anesthetic. Using ultrasound guidance an 18-gauge needle was inserted and advanced into the ducts. Approximately 1 ml of red colored fluid was withdrawn and sent to lab for analysis. The ducts at the 4 o'clock position were then addressed. 1% lidocaine was used as a local anesthetic. Using ultrasound guidance a 13-gauge suction assisted Mammotome needle was inserted and six core biopsy samples were obtained and sent to lab. Marker clips were placed at both biopsy sites. The patient tolerated the procedure well and there were no immediate complications. Reviewed by DEION Higgins 06/11/2018 05:19 P Electronically Signed by Giuseppe Urban MD 06/12/2018 10:10 A
--- NOTE | 2018-06-12 10:53 | IPNPDOC ---
Text Note Date of Service The patient was seen on 06/12/18. NOTE Subjective: Patient is a 77 year old female with a PMHx of HTN, Diastolic CHF, A. fib (on Coumadin - has been held for 4 days prior to arrival), JESSY on CPAP, Hypothyroidism, CKD3, Skin cancer on nose s/p excision, Acoustic neuroma, GERD who presented to the ER with complaints of shortness of breath with exertion. In the emergency room, patient was found to be hypertensive with systolic blood pressures of 200. She is admitted to the hospitalist service for further evaluation, treatment for suspected diastolic CHF exacerbation. Patient was seen and examined at the bedside. Currently she notes that her breathing is better. Denies any significant cough. Denies any CP or palpitations. Denies any N/V, abdominal pain, C/D. Objective: Vitals (See below) General: Lying in bed, no acute distress, comfortable, AAOx3 HEENT: NC, AT CVS: RRR, +S1S2 Lungs: Fair air entry b/l, no appreciable wheezing / rhonchi / rales Abdomen: Soft, ND,non-tender, +Morbid obesity Extremities: - Edema, - Calf tenderness Assessment and plan: s/p Hypertensive urgency - possibly 2/2 medication non-compliance - BP better controlled - c/w Amlodipine and Losartan s/p SOB - possibly 2/2 diastolic CHF exacerbation - possibly 2/2 above - Patient noted some improvement in her breathing - Physical without any significant signs of fluid overload - ECHO 02/2018: Preserved EF, G1DD, Mitral / tricuspid regurg, with mild Pulmonary HTN - c/w strict ins/outs, daily weights, head of bed elevation - Will DC IV Diuresis; will transition to oral diuretics s/p Breast biopsy - Pathology pending A. fib - c/w Amiodarone - Will resume Coumadin today; 6mg tonight JESSY on CPAP - May allow home CPAP use Hypothyroidism - Elevated TSH - Has recently had T3 started in addition to Levothyroxine - c/w T3 here - Outpatient f/u with PCP for repeat thyroid function testing in 2-3 weeks CKD3 - Mild elevation in Cr; will change diuresis to oral Skin cancer on nose s/p excision Acoustic neuroma DVT prophylaxis - c/w SCDs/TEDs VS,Fishbone, I+O VS, Fishbone, I+O Laboratory Tests 06/12/18 05:44 Red Blood Count 4.46, Mean Corpuscular Volume 88.1, Mean Corpuscular Hemoglobin 28.3, Mean Corpuscular Hemoglobin Concent 32.1, Red Cell Distribution Width 15.1 H, Calcium Level 8.6 L Vital Signs Date Time Temp Pulse Resp B/P (MAP) Pulse Ox O2 Delivery O2 Flow Rate FiO2 06/12/18 08:13 58 138/70 06/12/18 06:00 97.8 18 96 06/10/18 19:13 Room Air I&O- Last 24 Hours up to 6 AM 06/12/18 06:00 Intake Total 1515 ml Output Total 2650 ml Balance -1135 ml HAMIDA CRUZ MD Jun 12, 2018 10:53
[2018-06-12 14:00] VITALS: BP 142/64
[2018-06-12] MEDS ORDERED: WARFARIN SOD 3 MG TAB PO ONE (17:00)
[2018-06-12] MEDS: LOSARTAN 50 MG TAB PO SCH (21:09)
[2018-06-12] MEDS: ACETAMINOPHEN TAB 650MG DOSE (2X325MG) PO PRN (21:09)
[2018-06-12 22:00] VITALS: BP 162/68
[2018-06-13] MEDS: LEVOTHYROXINE 137MCG TABLET (0.137MG) PO SCH (05:23)
[2018-06-13 06:00] VITALS: BP 126/59
[2018-06-13 06:32] LABS: HEMATOCRIT 36.7 % (36.0-47.0); HEMOGLOBIN 11.8 g/dl (12.0-15.5); MEAN CORPUSCULAR HEMOGLOBIN 28.1 pg (27.0-33.0); MEAN CORPUSCULAR HGB CONC 32.2 g/dl (32.0-36.5); MEAN CORPUSCULAR VOLUME 87.4 fl (80.0-96.0); PLATELET COUNT, AUTOMATED 203 10^3/uL (150-450); WHITE BLOOD COUNT 5.2 10^3/uL (4.0-10.0)
[2018-06-13 06:52] LABS: INR 1.32; PROTHROMBIN TIME 16.6 SECONDS (12.1-14.4)
[2018-06-13 07:00] LABS: CALCIUM LEVEL 8.5 MG/DL (8.8-10.2); CREATININE FOR GFR 1.32 MG/DL (0.55-1.30); GLOMERULAR FILTRATION RATE 41.7 (>39); POTASSIUM SERUM 3.4 MEQ/L (3.5-5.1)
[2018-06-13] MEDS ORDERED: POTASSIUM CHLORIDE 10 MEQ SR TABLET PO ONE (08:00)
[2018-06-13] MEDS: SPIRONOLACTONE 25 MG TAB PO SCH (08:14)
[2018-06-13] MEDS: ACETAMINOPHEN TAB 650MG DOSE (2X325MG) PO PRN (08:15)
[2018-06-13] MEDS: OMEGA-3 1000MG CAPSULE PO SCH (08:16)
[2018-06-13] MEDS: ASPIRIN 81 MG ENTERIC TAB PO SCH (08:16)
[2018-06-13] MEDS: VITAMIN D 1,000 INTERNATIONAL UNITS TABLET PO SCH (08:16)
[2018-06-13] MEDS: OCUVITE 1 TAB PO SCH (08:16)
[2018-06-13 08:26] VITALS: BP 135/60
[2018-06-13] MEDS: AMIODARONE 200 MG TAB (PACERONE) PO SCH (08:26)
[2018-06-13] MEDS ORDERED: amLODIPine 5 MG TAB PO SCH (09:00)
[2018-06-13] MEDS ORDERED: FUROSEMIDE 40 MG TAB PO SCH (09:00)
[2018-06-13] MEDS ORDERED: AMLO5TAB6 PO (10:07)
[2018-06-13] MEDS ORDERED: COUM1TAB19 PO (10:36)
--- NOTE | 2018-06-13 10:39 | DS.PDOC ---
Discharge Summary General Date of Admission Jun 10, 2018 at 21:19 Date of Discharge 06/13/2018 Discharge Summary PROCEDURES PERFORMED DURING STAY: [None]. ADMITTING DIAGNOSES / DISCHARGE DIAGNOSES: s/p Hypertensive urgency - possibly 2/2 medication non-compliance s/p SOB - possibly 2/2 diastolic CHF exacerbation - possibly 2/2 above s/p Breast biopsy A. fib JESSY on CPAP Hypothyroidism CKD3 Skin cancer on nose s/p excision Acoustic neuroma DVT prophylaxis COMPLICATIONS/CHIEF COMPLAINT: Shortness of breath and elevated blood pressure HISTORY OF PRESENT ILLNESS: Patient is a 77 year old female with a PMHx of HTN, Diastolic CHF, A. fib (on Coumadin - has been held for 4 days prior to arrival), JESSY on CPAP, Hypothyroidism, CKD3, Skin cancer on nose s/p excision, Acoustic neuroma, GERD who presented to the ER with complaints of shortness of breath with exertion. In the emergency room, patient was found to be hypertensive with systolic blood pressures of 200. She is admitted to the hospitalist service for further evaluation, treatment for suspected diastolic CHF exacerbation. HOSPITAL COURSE: s/p Hypertensive urgency - possibly 2/2 medication non-compliance - BP better controlled - c/w Amlodipine and Losartan - Will adjust Amlodipine to BID dosing s/p SOB - possibly 2/2 diastolic CHF exacerbation - possibly 2/2 above - Significant improvement in breathing - Physical without any significant signs of fluid overload - ECHO 02/2018: Preserved EF, G1DD, Mitral / tricuspid regurg, with mild Pulmonary HTN - c/w strict ins/outs, daily weights, head of bed elevation - c/w Diuresis; changed to PO meds s/p Breast biopsy - Pathology pending; will have outpatient f/u with PMD (Dr. Berto Razo) A. fib - c/w Amiodarone - c/w Adjust dose of Coumadin; INR check on 06/15/18 - f/u with Dr. Berto Razo for Coumadin adjustment based on INR JESSY on CPAP - May allow home CPAP use Hypothyroidism - Elevated TSH - Has recently had T3 started in addition to Levothyroxine - c/w T3 here - Outpatient f/u with PCP (Dr. Berto Razo) for repeat thyroid function testing in 2- 3 weeks CKD3 - Mild elevation in Cr; will change diuresis to oral Skin cancer on nose s/p excision Acoustic neuroma DVT prophylaxis - c/w SCDs/TEDs DISCHARGE MEDICATIONS: Please see below. ALLERGIES: Please see below. PHYSICAL EXAMINATION ON DISCHARGE: Vitals (See below) General: Lying in bed, no acute distress, comfortable, AAOx3 HEENT: NC, AT CVS: RRR, +S1S2 Lungs: Fair air entry b/l, auscultation without wheezing, rales or rhonchi Abdomen: Soft, ND,non-tender, +Morbid obesity Extremities: No evidence of edema, - Calf tenderness LABORATORY DATA: Please see below. ACTIVITY: [As tolerated]. DISCHARGE PLAN: Follow up with Dr. Berto Razo within 7 days Remain compliant with treatment plan and medications Return to the ER if you experience any problems DISPOSITION: Home DISCHARGE CONDITION: [Stable]. TIME SPENT ON DISCHARGE: Greater than [35] minutes. Vital Signs/I&Os Vital Signs Date Time Temp Pulse Resp B/P (MAP) Pulse Ox O2 Delivery O2 Flow Rate FiO2 06/13/18 08:26 60 135/60 06/13/18 06:00 97.1 19 96 06/10/18 19:13 Room Air I&O- Last 24 Hours up to 6 AM 06/13/18 06:00 Intake Total 1470 ml Output Total 1600 ml Balance -130 ml Laboratory Data Labs 24H Laboratory Tests 2 06/13/18 05:23: Nucleated Red Blood Cells % (auto) 0.0, Prothrombin Time 16.6H, Prothromb Time International Ratio 1.32, Anion Gap 8, Glomerular Filtration Rate 41.7, Blood Urea Nitrogen 32H, Creatinine 1.32H, Sodium Level 140, Potassium Level 3.4L, Chloride Level 104, Carbon Dioxide Level 28, Calcium Level 8.5L CBC/BMP Laboratory Tests 06/13/18 05:23 Red Blood Count 4.20, Mean Corpuscular Volume 87.4, Mean Corpuscular Hemoglobin 28.1, Mean Corpuscular Hemoglobin Concent 32.2, Red Cell Distribution Width 15.2 H, Calcium Level 8.5 L Discharge Medications Scheduled Amiodarone HCl (Amiodarone HCl) 200 Mg Tab, 200 MG PO DAILY, (Reported) Amlodipine Besylate (Amlodipine Besylate) 5 Mg Tab, 5 MG PO BID Aspirin (Aspirin EC) 81 Mg Tabec, 81 MG PO DAILY, (Reported) Cholecalciferol (Vitamin D) 1,000 Unit Tab, 1,000 UNIT PO DAILY, (Reported) Furosemide (Furosemide) 40 Mg Tab, 40 MG PO DAILY, (Reported) Levothyroxine Sodium (Synthroid) 137 Mcg Tab, 68.5 MCG PO DAILY, (Reported) PT HAS BEEN CUTTING DOSE IN HALF FOR 2-3 WEEKS Liothyronine Sodium (Liothyronine Sodium) 25 Mcg Tab, 25 MCG PO DAILY, (R eported) NEW MED FROM DR.DAMIAN RAZO, PT HAS NOT STARTED Losartan Potassium (Losartan Potassium) 100 Mg Tab, 100 MG PO QHS, (Reported) Multivitamin Areds (Preservision Areds) 1 Cap Cap, 1 CAP PO DAILY, (Reported) [place] 3 Polyunsat Fatty Acids ([place]-3 1000 mg) 1 Cap Cap, 1 CAP PO DAILY, (Reported) Spironolactone (Spironolactone) 25 Mg Tab, 25 MG PO DAILY, (Reported) Warfarin Sod (Coumadin) 3 Mg Tab, 3 MG PO QPM, (Reported) TAKES AT 1700, ON HOLD FOR BIOPSY LAST 3 DAYS, BIOPSY ON 06/11/18 Scheduled PRN Albuterol Sulfate (Proair Hfa) 108 Mcg/Act Aer, 2 PUFF INH Q4H PRN for SHORTNESS OF BREATH, (Reported) Diazepam (Diazepam) 2 Mg Tab, 2 MG PO DAILY PRN for ANXIETY, (Reported) Nitroglycerin (Nitrostat) 0.4 Mg Subl, 0.4 MG SL NITRO PRN for CHEST PAIN, (Reported) Polyethylene Glycol (Systane 0.4-0.3 %) 15 Ml Shannan, 1 DROP OU QID PRN for DRY EYES, (Reported) Sodium Chloride (Haines Nasal Horace) 0.65 % Spr, 2 SPRAY NA QID PRN for NASAL DRYNESS, (Reported) EACH NOSTRIL Allergies Coded Allergies: Hydrochlorothiazide (Verified Allergy, Intermediate, HIVES, 03/06/18) Sucralfate (Verified Allergy, Intermediate, HIVES, 03/06/18) Captopril (Unverified Allergy, Mild, ITCHING, 03/06/18) Cephalosporins (Unverified Allergy, Unknown, 03/06/18) Quinolones (Unverified Allergy, Unknown, 03/06/18) Sulfa Drugs (Unverified Allergy, Unknown, 03/06/18) Verapamil (Unverified Allergy, Unknown, 03/06/18) Valsartan (Verified Adverse Reaction, Intermediate, HEADACHES AND PALPITATIONS, 03/06/18) Citalopram (Unverified Adverse Reaction, Mild, 03/06/18) Salmeterol (Unverified Adverse Reaction, Unknown, 03/06/18) HAMIDA CRUZ MD Jun 13, 2018 10:39
[2018-06-13] MEDS: LIOTHYRONINE 25 MCG TAB PO SCH (10:49)
== END 2018-06-13 14:22 | disposition home health service (06) | DRG 291 ==
LOC: M ED 15:50 → M ED INP 21:19 → M MSPAV 23:35
PROVIDERS: ADMIT Internal Medicine; ATTEND Internal Medicine
PROC: 0H9U3ZX Drainage of Left Breast, Percutaneous Approach, Diagnostic (ICD-10-PCS; principal; 2018-06-11)
DX: I13.0 Hypertensive heart and chronic kidney disease with heart failure and stage 1 through stage 4 chronic kidney disease, or unspecified chronic kidney disease (principal); I50.33 Acute on chronic diastolic (congestive) heart failure; I48.91 Unspecified atrial fibrillation; G47.33 Obstructive sleep apnea (adult) (pediatric); K21.9 Gastro-esophageal reflux disease without esophagitis; N18.3 Chronic kidney disease, stage 3 (moderate); N60.42 Mammary duct ectasia of left breast; E03.9 Hypothyroidism, unspecified; I16.0 Hypertensive urgency; D33.3 Benign neoplasm of cranial nerves; Z85.828 Personal history of other malignant neoplasm of skin; Z79.82 Long term (current) use of aspirin; Z79.01 Long term (current) use of anticoagulants; Z79.899 Other long term (current) drug therapy

== ENCOUNTER → 2018-06-11 | Outpatient (CLI) | payer MEDICARE ==
[~2018-06-11] MED LIST changes: +AMOX875T PO; +CARD120C3 PO; +DIAZ2TAB PO; +LIDOCAINE 1% MDV 20ML VIAL As Ordered ONE; +LIOT25TA2 PO; +SPIR-10 PO
== END ==
LOC: M RADPRO 13:00
PROVIDERS: ATTEND Surgery
DX: N60.42 Mammary duct ectasia of left breast (principal)

== ENCOUNTER 2018-06-19 15:02 | Emergency (ER) | payer MEDICARE ==
[~2018-06-19] VITALS: Ht 152.4 cm; Wt 126.4 kg
[~2018-06-19 15:02] MED LIST changes: -ISOVUE-370 76% 100ML VIAL (Q9967) As Ordered ONE; -METAL LOCK LOOP XX ONE
[2018-06-19 16:14] LABS: BASO % 0.4 % (0.0-1.0); EOS # 0.3 10^3/uL (0.0-0.50); EOS % 3.6 % (0.0-3.0); HEMATOCRIT 39.5 % (36.0-47.0); HEMOGLOBIN 12.5 g/dl (12.0-15.5); LYMPH # 1.1 10^3/uL (1.5-4.5); LYMPH % 13.1 % (24.0-44.0); MEAN CORPUSCULAR HGB CONC 31.6 g/dl (32.0-36.5); MEAN CORPUSCULAR VOLUME 88.4 fl (80.0-96.0); MONO # 0.7 10^3/uL (0.0-0.8); MONO % 8.7 % (0.0-5.0); NEUTROPHILS % 73.8 % (36.0-66.0); PLATELET COUNT, AUTOMATED 219 10^3/uL (150-450); RED BLOOD COUNT 4.47 10^6/uL (4.00-5.40); WHITE BLOOD COUNT 8.2 10^3/uL (4.0-10.0)
[2018-06-19 16:25] LABS: INR 2.2; PROTHROMBIN TIME 24.9 SECONDS (12.1-14.4)
[2018-06-19 16:26] LABS: PARTIAL THROMBOPLASTIN TIME 36.4 SECONDS (25.4-37.6)
[2018-06-19 16:51] LABS: ALBUMIN 3.5 GM/DL (3.2-5.2); ALT/SGPT 19 U/L (12-78); BILIRUBIN,DIRECT 0.1 MG/DL (0.0-0.2); BILIRUBIN,TOTAL 0.3 MG/DL (0.2-1.0); BLOOD UREA NITROGEN 27 MG/DL (7-18); CALCIUM LEVEL 8.6 MG/DL (8.8-10.2); CARBON DIOXIDE LEVEL 27 MEQ/L (21-32); CHLORIDE LEVEL 101 MEQ/L (98-107); CK-MB VALUE MASS < 1.0 NG/ML (<3.6); CPK CREATINE PHOSPHOKINASE 51 U/L (26-192); CREATININE FOR GFR 1.32 MG/DL (0.55-1.30); FREE T4 1.06 NG/DL (0.76-1.46); GLOMERULAR FILTRATION RATE 41.7 (>39); GLUCOSE, FASTING 104 MG/DL (70-100); MAGNESIUM LEVEL 2.4 MG/DL (1.8-2.4); MB/CK RELATIVE INDEX 1.96 (< OR =4); SODIUM LEVEL 137 MEQ/L (136-145); TOTAL PROTEIN 7.1 GM/DL (6.4-8.2); TROPONIN I < 0.02 NG/ML (< 0.10)
[2018-06-19] MEDS: METOPROLOL 5 MG/5 ML VIAL IV SCH ×3 (16:55→17:13)
[2018-06-19] MEDS ORDERED: METOPROLOL 5 MG/5 ML VIAL As Ordered ONE (16:56)
[2018-06-19 17:13] VITALS: BP 133/90
[2018-06-19] MEDS ORDERED: WARFARIN SOD 5 MG TAB PO ONE (19:15)
[2018-06-19] MEDS ORDERED: WARFARIN SOD 3 MG TAB PO ONE (19:30)
[2018-06-19 21:42] LABS: CK-MB VALUE MASS < 1.0 NG/ML (<3.6); CPK CREATINE PHOSPHOKINASE 64 U/L (26-192); MB/CK RELATIVE INDEX 1.56 (< OR =4); TROPONIN I 0.04 NG/ML (< 0.10)
[2018-06-19 21:45] VITALS: BP 137/72
--- NOTE | 2018-06-20 13:21 | ECGEPIP ---
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
--- NOTE | 2018-06-20 13:21 | ECGEPIP ---
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
--- NOTE | 2018-06-20 13:22 | ECGEPIP ---
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
== END 2018-06-19 22:21 | disposition home or self-care (01) ==
LOC: M ED 15:02
DX: R00.0 Tachycardia, unspecified (principal); R00.1 Bradycardia, unspecified; I44.0 Atrioventricular block, first degree; I45.19 Other right bundle-branch block; I48.91 Unspecified atrial fibrillation; I50.9 Heart failure, unspecified; N18.3 Chronic kidney disease, stage 3 (moderate); G47.30 Sleep apnea, unspecified; K21.9 Gastro-esophageal reflux disease without esophagitis; D33.3 Benign neoplasm of cranial nerves; Z85.828 Personal history of other malignant neoplasm of skin; Z83.3 Family history of diabetes mellitus; Z80.9 Family history of malignant neoplasm, unspecified; Z79.82 Long term (current) use of aspirin; Z79.899 Other long term (current) drug therapy; Z79.01 Long term (current) use of anticoagulants; Z88.2 Allergy status to sulfonamides; Z88.8 Allergy status to other drugs, medicaments and biological substances
CPT/HCPCS: 36415; 71275; 80048; 80076; 82550; 82553; 83735; 84100; 84439; 84443; 84484; 85025; 85610; 85730; 93005; 93041; 94760; 99285; Q9967

== ENCOUNTER → 2018-06-19 | Outpatient (REF) | payer MEDICARE ==
[~2018-06-19] MED LIST changes: -AMOX875T PO; -CARD120C3 PO; -LIDOCAINE 1% MDV 20ML VIAL As Ordered ONE
== END ==
LOC: M SFHCPLAZ 13:15
PROVIDERS: ATTEND Family Medicine
DX: R06.02 Shortness of breath (principal); Z53.8 Procedure and treatment not carried out for other reasons

== ENCOUNTER → 2018-06-19 | Outpatient (CLI) | payer MEDICARE ==
[~2018-06-19] MED LIST changes: +ISOVUE-370 76% 100ML VIAL (Q9967) As Ordered ONE; +METAL LOCK LOOP XX ONE
[2018-06-19 15:03] LABS: BLOOD UREA NITROGEN 29 MG/DL (7-18); CARBON DIOXIDE LEVEL 25 MEQ/L (21-32); CHLORIDE LEVEL 101 MEQ/L (98-107); CREATININE FOR GFR 1.46 MG/DL (0.55-1.30); GLOMERULAR FILTRATION RATE 37.1 (>39); GLUCOSE, FASTING 115 MG/DL (70-100); NT-PRO BNP 108 PG/ML (<450); SODIUM LEVEL 137 MEQ/L (136-145); TROPONIN I < 0.02 NG/ML (< 0.10)
--- NOTE | 2018-06-19 15:03 | REP ---
CT pulmonary angiogram: With IV contrast. History: Shortness of breath. Comparison studies: Comparison study March 02, 2018. Contrast dose: 75 mL of Isovue [address] technique: Helical scanning is acquired and overlapping 1.5 mm and contiguous 3 mm axial images are reformatted. In addition, maximum intensity projection and multiplanar re-formation images are generated in sagittal and coronal imaging projections. CT pulmonary angiographic findings: There is good opacification of the pulmonary arterial tree. There is no CT evidence of pulmonary embolism. Maximal intensity projection images show no evidence of vessel cutoff or filling defect. There is mild motion artifact at the infrahilar level. The thoracic aorta enhances homogeneously. No evidence of dissection or aneurysm is seen. Vascular calcification is noted. There is no evidence of pleural effusion. There is a small pericardial effusion however. This is unchanged from March 02, 2018. There is a small sliding-type hiatal hernia. Normal adrenal glands are seen. There are mild plate-like atelectatic changes in the upper lobes. This and the mild respiratory motion artifact obscure fine lung parenchymal detail. Findings are otherwise quite similar to the prior study. Impression: No CT evidence of pulmonary embolus. Some respiratory motion artifact. Pericardial fluid and/or thickening persists unchanged. Small hiatal hernia. Cardiomegaly right heart dilation. Electronically Signed by Jesús Pack MD 06/19/2018 10:26 P
[2018-06-19 15:04] LABS: INR 2.16; PROTHROMBIN TIME 24.5 SECONDS (12.1-14.4)
== END ==
LOC: M LAB 13:43 → M RAD 13:43
PROVIDERS: ATTEND Family Medicine
DX: K44.9 Diaphragmatic hernia without obstruction or gangrene (principal); I51.7 Cardiomegaly; R06.02 Shortness of breath
CPT/HCPCS: 36415; 71275; 80048; 83880; 84484; 85610; Q9967

== ENCOUNTER 2018-06-28 18:44 | Emergency (ER) | payer MEDICARE ==
[2018-06-28 19:44] LABS: BASO % 0.4 % (0.0-1.0); EOS # 0.3 10^3/uL (0.0-0.50); EOS % 4.8 % (0.0-3.0); HEMATOCRIT 38.3 % (36.0-47.0); HEMOGLOBIN 12.7 g/dl (12.0-15.5); LYMPH # 0.8 10^3/uL (1.5-4.5); LYMPH % 11.9 % (24.0-44.0); MEAN CORPUSCULAR HEMOGLOBIN 28.3 pg (27.0-33.0); MEAN CORPUSCULAR HGB CONC 33.2 g/dl (32.0-36.5); MEAN CORPUSCULAR VOLUME 85.5 fl (80.0-96.0); MONO # 0.6 10^3/uL (0.0-0.8); MONO % 8.2 % (0.0-5.0); NEUTROPHILS # 5.3 10^3/uL (1.8-7.7); NEUTROPHILS % 74.1 % (36.0-66.0); PLATELET COUNT, AUTOMATED 264 10^3/uL (150-450); RED BLOOD COUNT 4.48 10^6/uL (4.00-5.40); WHITE BLOOD COUNT 7.1 10^3/uL (4.0-10.0)
[2018-06-28 20:06] LABS: BLOOD UREA NITROGEN 29 MG/DL (7-18); CALCIUM LEVEL 8.3 MG/DL (8.8-10.2); CARBON DIOXIDE LEVEL 27 MEQ/L (21-32); CHLORIDE LEVEL 103 MEQ/L (98-107); CREATININE FOR GFR 1.51 MG/DL (0.55-1.30); GLOMERULAR FILTRATION RATE 35.7 (>39); GLUCOSE, FASTING 120 MG/DL (70-100); POTASSIUM SERUM 4.2 MEQ/L (3.5-5.1); SODIUM LEVEL 138 MEQ/L (136-145)
[2018-06-28] MEDS ORDERED: METOPROLOL 5 MG/5 ML VIAL IV SCH (20:15)
[2018-06-28 20:31] LABS: CK-MB VALUE MASS < 1.0 NG/ML (<3.6); CPK CREATINE PHOSPHOKINASE 47 U/L (26-192); MB/CK RELATIVE INDEX 2.13 (< OR =4); TROPONIN I < 0.02 NG/ML (< 0.10)
[2018-06-28 21:23] VITALS: BP 132/62
--- NOTE | 2018-06-29 07:07 | ECGEPIP ---
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
--- NOTE | 2018-06-29 11:39 | REP ---
AP PORTABLE CHEST: 06/28/2018. CLINICAL HISTORY: Cough. COMPARISON: Chest 06/10/2018, CT angiogram 06/19/2018. FINDINGS: There is left atrial and left ventricular enlargement with cardiomegaly. Some mild venous hypertension noted without edema. Some linear scarring in the left upper lung zone peripherally at about the level of the hilum. There is basilar fibrotic change. I do not see superimposed acute infiltrate or pleural effusion. The aorta is mildly tortuous. Airway intact. No widening of the mediastinum. No other significant findings or changes. IMPRESSION: 1. Cardiomegaly with left atrial and ventricular enlargement with some venous hypertension. No sury edema, effusion, or definite consolidation. 2. Some basilar fibrosis, and a tortuous ectatic aorta. Electronically Signed by Sebastian Tuttle MD 06/29/2018 11:49 A
--- NOTE | 2018-06-29 16:34 | ECGEPIP ---
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
== END 2018-06-28 21:57 | disposition home or self-care (01) ==
LOC: M ED 18:44
DX: I48.91 Unspecified atrial fibrillation (principal); I47.1 Supraventricular tachycardia; E03.9 Hypothyroidism, unspecified; J45.909 Unspecified asthma, uncomplicated; I51.7 Cardiomegaly; Z79.82 Long term (current) use of aspirin; Z79.01 Long term (current) use of anticoagulants; Z79.899 Other long term (current) drug therapy; Z88.2 Allergy status to sulfonamides; Z88.8 Allergy status to other drugs, medicaments and biological substances

== ENCOUNTER → 2018-07-10 | Outpatient (REF) | payer MEDICARE ==
[~2018-07-10] MED LIST changes: +AMOX875T PO; +CARD120C3 PO
[2018-07-10 16:35] LABS: CREATININE FOR GFR 1.38 MG/DL (0.55-1.30); FREE T3 1.9 PG/ML (2.2-4.0); FREE T4 1.41 NG/DL (0.76-1.46); GLOMERULAR FILTRATION RATE 39.6 (>39); POTASSIUM SERUM 3.8 MEQ/L (3.5-5.1); THYROID STIMULATING HORMONE 27.5 uIU/ML (0.358-3.740)
== END ==
LOC: M SFHCPLAZ 13:48
PROVIDERS: ATTEND Family Medicine
DX: E03.9 Hypothyroidism, unspecified (principal); N18.3 Chronic kidney disease, stage 3 (moderate)
CPT/HCPCS: 36415; 80048; 84439; 84443; 84481; G0463

== ENCOUNTER 2018-07-19 21:32 | Emergency (ER) | payer MEDICARE ==
[~2018-07-19] VITALS: Ht 152.4 cm; Wt 126.4 kg
[~2018-07-19 21:32] MED LIST changes: -CARD120C3 PO
[2018-07-19] MEDS ORDERED: ASPIRIN 81 MG CHEW TABLET PO ONE (22:00)
[2018-07-19 22:05] LABS: BASO % 0.3 % (0.0-1.0); EOS # 0.5 10^3/uL (0.0-0.50); EOS % 8.4 % (0.0-3.0); HEMATOCRIT 37.8 % (36.0-47.0); HEMOGLOBIN 12.3 g/dl (12.0-15.5); LYMPH % 15.8 % (24.0-44.0); MEAN CORPUSCULAR HEMOGLOBIN 28.8 pg (27.0-33.0); MEAN CORPUSCULAR HGB CONC 32.5 g/dl (32.0-36.5); MEAN CORPUSCULAR VOLUME 88.5 fl (80.0-96.0); MONO # 0.4 10^3/uL (0.0-0.8); MONO % 6.9 % (0.0-5.0); NEUTROPHILS # 4.1 10^3/uL (1.8-7.7); NEUTROPHILS % 68.3 % (36.0-66.0); PLATELET COUNT, AUTOMATED 196 10^3/uL (150-450); RED BLOOD COUNT 4.27 10^6/uL (4.00-5.40); WHITE BLOOD COUNT 6.1 10^3/uL (4.0-10.0)
[2018-07-19] MEDS ORDERED: COUM1TAB19 PO (22:12)
[2018-07-19] MEDS ORDERED: FURO20TA2 PO (22:12)
[2018-07-19] MEDS ORDERED: CARD120C3 PO (22:20)
[2018-07-19 22:36] LABS: BLOOD UREA NITROGEN 19 MG/DL (7-18); CALCIUM LEVEL 8.3 MG/DL (8.8-10.2); CARBON DIOXIDE LEVEL 23 MEQ/L (21-32); CHLORIDE LEVEL 106 MEQ/L (98-107); CK-MB VALUE MASS < 1.0 NG/ML (<3.6); CPK CREATINE PHOSPHOKINASE 76 U/L (26-192); CREATININE FOR GFR 1.29 MG/DL (0.55-1.30); GLOMERULAR FILTRATION RATE 42.8 (>39); GLUCOSE, FASTING 110 MG/DL (70-100); MB/CK RELATIVE INDEX 1.32 (< OR =4); POTASSIUM SERUM 4.6 MEQ/L (3.5-5.1); SODIUM LEVEL 140 MEQ/L (136-145); TROPONIN I < 0.02 NG/ML (< 0.10)
[2018-07-19 22:58] LABS: INR 2.21
[2018-07-19 23:30] VITALS: BP 138/84
--- NOTE | 2018-07-20 09:32 | REP ---
The portable chest, single AP sitting view, 10:24 p.m.: Comparison is 06/28/2018. The lung kellogg are clear. The cardiac size is enlarged . The katelynn, mediastinum, and skeletal structures are unremarkable. Impression: Cardiomegaly, otherwise negative portable chest. A loop recorder is incidentally identified. Electronically Signed by Giuseppe Wagner MD 07/20/2018 09:24 A
--- NOTE | 2018-07-20 21:01 | ECGEPIP ---
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
--- NOTE | 2018-07-21 21:42 | ECGEPIP ---
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
== END 2018-07-19 23:36 | disposition home or self-care (01) ==
LOC: M ED 21:32
DX: I48.91 Unspecified atrial fibrillation (principal); R94.31 Abnormal electrocardiogram [ECG] [EKG]; I10 Essential (primary) hypertension; Z79.01 Long term (current) use of anticoagulants; Z88.8 Allergy status to other drugs, medicaments and biological substances; Z88.1 Allergy status to other antibiotic agents; Z98.890 Other specified postprocedural states; Z79.890 Hormone replacement therapy; Z79.899 Other long term (current) drug therapy; Z79.82 Long term (current) use of aspirin

== ENCOUNTER 2018-07-22 18:31 | Emergency (ER) | payer MEDICARE ==
[~2018-07-22] VITALS: Ht 152.4 cm; Wt 125.5 kg
[~2018-07-22 18:31] MED LIST changes: +CARD120C3 PO
[2018-07-22 19:53] LABS: BASO % 0.5 % (0.0-1.0); EOS # 0.5 10^3/uL (0.0-0.50); EOS % 5.9 % (0.0-3.0); HEMATOCRIT 39.3 % (36.0-47.0); HEMOGLOBIN 12.8 g/dl (12.0-15.5); LYMPH # 0.9 10^3/uL (1.5-4.5); LYMPH % 10.6 % (24.0-44.0); MEAN CORPUSCULAR HGB CONC 32.6 g/dl (32.0-36.5); MEAN CORPUSCULAR VOLUME 88.9 fl (80.0-96.0); MONO # 0.7 10^3/uL (0.0-0.8); MONO % 8.2 % (0.0-5.0); NEUTROPHILS % 74.3 % (36.0-66.0); PLATELET COUNT, AUTOMATED 236 10^3/uL (150-450); RED BLOOD COUNT 4.42 10^6/uL (4.00-5.40)
[2018-07-22] MEDS ORDERED: NS 500 ML IV ONE (20:15)
[2018-07-22 21:38] LABS: PROTHROMBIN TIME 23.1 SECONDS (12.1-14.4)
[2018-07-22 21:39] LABS: PARTIAL THROMBOPLASTIN TIME 37.2 SECONDS (25.4-37.6)
[2018-07-22 21:49] LABS: ALBUMIN 3.3 GM/DL (3.2-5.2); ALT/SGPT 16 U/L (12-78); BILIRUBIN,DIRECT < 0.1 MG/DL (0.0-0.2); BILIRUBIN,TOTAL 0.2 MG/DL (0.2-1.0); BLOOD UREA NITROGEN 22 MG/DL (7-18); CARBON DIOXIDE LEVEL 27 MEQ/L (21-32); CHLORIDE LEVEL 107 MEQ/L (98-107); CK-MB VALUE MASS < 1.0 NG/ML (<3.6); CPK CREATINE PHOSPHOKINASE 46 U/L (26-192); CREATININE FOR GFR 1.34 MG/DL (0.55-1.30); GLOMERULAR FILTRATION RATE 40.9 (>39); GLUCOSE, FASTING 90 MG/DL (70-100); LIPASE 239 U/L (73-393); MB/CK RELATIVE INDEX 2.17 (< OR =4); POTASSIUM SERUM 4.4 MEQ/L (3.5-5.1); SODIUM LEVEL 141 MEQ/L (136-145); TOTAL PROTEIN 6.8 GM/DL (6.4-8.2); TROPONIN I < 0.02 NG/ML (< 0.10)
[2018-07-22 23:53] LABS: CK-MB VALUE MASS < 1.0 NG/ML (<3.6); CPK CREATINE PHOSPHOKINASE 62 U/L (26-192); MB/CK RELATIVE INDEX 1.61 (< OR =4); TROPONIN I < 0.02 NG/ML (< 0.10)
[2018-07-23] VITALS: BP 130/60
--- NOTE | 2018-07-23 20:47 | ECGEPIP ---
Stationary ECG Study [facility] - ED Test Date: 2018-07-22 Pat Name: JEAN CARLOS FLORES Department: Room: - Gender: F Side Gluer: fabian : 1940 Requested By: PAN LAZCANO Order Number: [id number] Reading MD: Tg Chen Measurements Intervals [place] Rate: 66 P: 23 WI: 214 QRS: -34 QRSD: 94 T: 44 QT: 389 QTc: 408 Interpretive Statements SINUS RHYTHM WITH FIRST DEGREE AV BLOCK LOW QRS VOLTAGE IN PRECORDIAL LEADS POSSIBLE ANTERIOR MYOCARDIAL INFARCTION, PROBABLY OLD INFERIOR MYOCARDIAL INFARCTION, PROBABLY OLD Electronically Signed On 07-23-2018 20:47:15 EDT by Tg Chen
--- NOTE | 2018-07-24 07:35 | ECGEPIP ---
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
== END 2018-07-23 00:30 | disposition home or self-care (01) ==
LOC: M ED 18:31
DX: I48.91 Unspecified atrial fibrillation (principal); J44.9 Chronic obstructive pulmonary disease, unspecified; I25.10 Atherosclerotic heart disease of native coronary artery without angina pectoris; E66.8 Other obesity; Z79.899 Other long term (current) drug therapy; Z79.890 Hormone replacement therapy; Z79.82 Long term (current) use of aspirin; Z79.01 Long term (current) use of anticoagulants; Z88.1 Allergy status to other antibiotic agents; Z88.2 Allergy status to sulfonamides; Z88.8 Allergy status to other drugs, medicaments and biological substances

== ENCOUNTER 2018-08-07 13:54 | Emergency (ER) | payer MEDICARE ==
[~2018-08-07] VITALS: Ht 152.4 cm; Wt 125.7 kg
[~2018-08-07 13:54] MED LIST changes: -ASPI1TAB PO; +ASPI81TA26 PO
[2018-08-07] MEDS ORDERED: ASPIRIN 81 MG CHEW TABLET PO ONE (14:45)
--- NOTE | 2018-08-07 15:18 | REP ---
Clinical: Acute chest pain . Comparison: 07/19/2018. Technique: PA and lateral. Findings: The mediastinum and cardiac silhouette are normal. The lung kellogg are clear and without acute consolidation, effusion, or pneumothorax. The skeletal structures are intact and normal. Loop recorder identified. Impression: 1. No acute cardiopulmonary process. Electronically Signed by Sloan Love MD 08/07/2018 03:08 P
[2018-08-07 15:26] LABS: BASO % 0.4 % (0.0-1.0); EOS # 0.4 10^3/uL (0.0-0.50); EOS % 4.9 % (0.0-3.0); HEMATOCRIT 38.4 % (36.0-47.0); HEMOGLOBIN 12.8 g/dl (12.0-15.5); LYMPH % 12.3 % (24.0-44.0); MEAN CORPUSCULAR HEMOGLOBIN 29.4 pg (27.0-33.0); MEAN CORPUSCULAR HGB CONC 33.3 g/dl (32.0-36.5); MEAN CORPUSCULAR VOLUME 88.1 fl (80.0-96.0); MONO # 0.6 10^3/uL (0.0-0.8); MONO % 7.7 % (0.0-5.0); NEUTROPHILS # 5.7 10^3/uL (1.8-7.7); NEUTROPHILS % 74.2 % (36.0-66.0); PLATELET COUNT, AUTOMATED 274 10^3/uL (150-450); RED BLOOD COUNT 4.36 10^6/uL (4.00-5.40); WHITE BLOOD COUNT 7.7 10^3/uL (4.0-10.0)
[2018-08-07 15:42] LABS: INR 1.99
[2018-08-07 16:03] LABS: BLOOD UREA NITROGEN 20 MG/DL (7-18); CALCIUM LEVEL 8.6 MG/DL (8.8-10.2); CARBON DIOXIDE LEVEL 28 MEQ/L (21-32); CHLORIDE LEVEL 104 MEQ/L (98-107); CK-MB VALUE MASS < 1.0 NG/ML (<3.6); CPK CREATINE PHOSPHOKINASE 38 U/L (26-192); CREATININE FOR GFR 1.33 MG/DL (0.55-1.30); FREE T4 1.52 NG/DL (0.76-1.46); GLOMERULAR FILTRATION RATE 41.3 (>39); GLUCOSE, FASTING 90 MG/DL (70-100); MB/CK RELATIVE INDEX 2.63 (< OR =4); NT-PRO BNP 293 PG/ML (<450); POTASSIUM SERUM 4.3 MEQ/L (3.5-5.1); SODIUM LEVEL 137 MEQ/L (136-145); TROPONIN I < 0.02 NG/ML (< 0.10)
[2018-08-07] MEDS ORDERED: ACETAMINOPHEN TAB 650MG DOSE (2X325MG) PO ONE (16:45)
[2018-08-07] MEDS ORDERED: ISOVUE-370 76% 125ML VIAL (Q9967 PER ML) As Ordered ONE (16:48)
--- NOTE | 2018-08-07 18:04 | REPVR ---
EXAM: CT Angiography Chest With Contrast EXAM DATE/TIME: 08/07/2018 4:40 PM CLINICAL HISTORY: 77 years old, female; Pain; Chest pain; Additional info: R/O pe TECHNIQUE: Imaging protocol: Axial computed tomographic angiography images of the chest with intravenous contrast using CT angiography protocol. Coronal and sagittal reformatted images were created and reviewed. 3D rendering: MIP reconstructed images were created and reviewed. Radiation optimization: All CT scans at this facility use at least one of these dose optimization techniques: automated exposure control; mA and/or kV adjustment per patient size (includes targeted exams where dose is matched to clinical indication); or iterative reconstruction. Contrast material: ISOVUE 370 Contrast volume: 75 ml Contrast route: IV COMPARISON: CT ANGIO CHEST 06/19/2018 2:12 PM FINDINGS: Pulmonary arteries: Limited evaluation of the distal pulmonary arterial branches due to motion artifact. No filling defect in the main pulmonary arteries or the primary or secondary order pulmonary arterial branches. Aorta: Mild atherosclerotic change of the thoracic aorta. Lungs: Stable noncalcified 6 mm right lower lobe pulmonary nodule. This nodule is unchanged since the patient's chest CT from 10/16/2017. Pleural space: Normal. No pneumothorax. No pleural effusion. Heart: Cardiomegaly. Pancreas: Stable 4.2 cm x 3.1 cm low density cystic lesion between the proximal stomach and the pancreatic tail. Spleen: Calcified splenic granuloma. Lymph nodes: Unremarkable. No enlarged lymph nodes. Bones/joints: Degenerative change of the spine. Soft tissues: Stable 11 mm nodular opacity in the lower outer quadrant of the left breast, anterior depth. Additional nodular left breast opacities which were visualized deep to this on the prior CT are no longer identified. IMPRESSION: 1. No central pulmonary embolism. 2. Stable 6 mm right lower lobe pulmonary nodule. Consider a single followup chest CT in 12 months. 3. Stable 11 mm nodular opacity in the left breast. Electronically signed by: Ivelisse Delgadillo On 08/07/2018 18:04:06 PM
[2018-08-07 18:12] LABS: CK-MB VALUE MASS < 1.0 NG/ML (<3.6); CPK CREATINE PHOSPHOKINASE 39 U/L (26-192); MB/CK RELATIVE INDEX 2.56 (< OR =4); TROPONIN I < 0.02 NG/ML (< 0.10)
[2018-08-07 18:39] VITALS: BP 124/58
--- NOTE | 2018-08-08 06:34 | ECGEPIP ---
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
--- NOTE | 2018-08-08 16:59 | ECGEPIP ---
Stationary ECG Study 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
== END 2018-08-07 18:56 | disposition home or self-care (01) ==
LOC: M ED 13:54
DX: I47.1 Supraventricular tachycardia (principal); R07.9 Chest pain, unspecified; R91.1 Solitary pulmonary nodule; N63.23 Unspecified lump in the left breast, lower outer quadrant; R06.02 Shortness of breath; I11.0 Hypertensive heart disease with heart failure; I50.9 Heart failure, unspecified; I48.91 Unspecified atrial fibrillation; I25.2 Old myocardial infarction; I27.20 Pulmonary hypertension, unspecified; E78.5 Hyperlipidemia, unspecified; J45.909 Unspecified asthma, uncomplicated; E03.9 Hypothyroidism, unspecified; D80.8 Other immunodeficiencies with predominantly antibody defects; J70.2 Acute drug-induced interstitial lung disorders; Z86.79 Personal history of other diseases of the circulatory system; Z98.61 Coronary angioplasty status; Z88.2 Allergy status to sulfonamides; Z88.1 Allergy status to other antibiotic agents; Z88.8 Allergy status to other drugs, medicaments and biological substances; Z79.899 Other long term (current) drug therapy; Z79.01 Long term (current) use of anticoagulants; Z79.82 Long term (current) use of aspirin
CPT/HCPCS: 71046; 71275; 80048; 82550; 82553; 83880; 84439; 84443; 84484; 85025; 85610; 86850; 86900; 86901; 93005; 93041; 94760; 99285; Q9967

== ENCOUNTER → 2018-08-11 | Outpatient (CLI) | payer MEDICARE ==
[~2018-08-11] MED LIST changes: +ASPI1TAB PO; -ASPI81TA26 PO
[2018-08-11 14:04] LABS: HEMATOCRIT 39.5 % (36.0-47.0); MEAN CORPUSCULAR HEMOGLOBIN 29.6 pg (27.0-33.0); MEAN CORPUSCULAR HGB CONC 32.9 g/dl (32.0-36.5); PLATELET COUNT, AUTOMATED 272 10^3/uL (150-450); RED BLOOD COUNT 4.39 10^6/uL (4.00-5.40); WHITE BLOOD COUNT 6.7 10^3/uL (4.0-10.0)
[2018-08-11 14:15] LABS: INR 1.92; PROTHROMBIN TIME 22.3 SECONDS (12.1-14.4)
[2018-08-11 14:25] LABS: CALCIUM LEVEL 8.5 MG/DL (8.8-10.2); CREATININE FOR GFR 1.45 MG/DL (0.55-1.30); GLOMERULAR FILTRATION RATE 37.4 (>39); POTASSIUM SERUM 4.4 MEQ/L (3.5-5.1)
== END ==
LOC: M WUC 12:34
PROVIDERS: ATTEND Internal Medicine Cardiovascular Disease
DX: I49.5 Sick sinus syndrome (principal); I48.91 Unspecified atrial fibrillation

== ENCOUNTER 2018-08-18 12:56 | Emergency (ER) | payer MEDICARE ==
[~2018-08-18] VITALS: Ht 152.4 cm; Wt 125.0 kg
[~2018-08-18 12:56] MED LIST changes: -ASPI1TAB PO; +ASPI81TA26 PO
[2018-08-18 14:01] LABS: BASO % 0.4 % (0.0-1.0); EOS # 0.4 10^3/uL (0.0-0.50); EOS % 5.3 % (0.0-3.0); HEMATOCRIT 35.9 % (36.0-47.0); LYMPH # 0.8 10^3/uL (1.5-4.5); LYMPH % 10.8 % (24.0-44.0); MEAN CORPUSCULAR HEMOGLOBIN 29.6 pg (27.0-33.0); MEAN CORPUSCULAR HGB CONC 33.4 g/dl (32.0-36.5); MEAN CORPUSCULAR VOLUME 88.4 fl (80.0-96.0); MONO # 0.6 10^3/uL (0.0-0.8); MONO % 7.2 % (0.0-5.0); NEUTROPHILS # 5.8 10^3/uL (1.8-7.7); NEUTROPHILS % 75.9 % (36.0-66.0); PLATELET COUNT, AUTOMATED 243 10^3/uL (150-450); RED BLOOD COUNT 4.06 10^6/uL (4.00-5.40); WHITE BLOOD COUNT 7.6 10^3/uL (4.0-10.0)
[2018-08-18 14:11] LABS: INR 1.54; PROTHROMBIN TIME 18.7 SECONDS (12.1-14.4)
--- NOTE | 2018-08-18 14:33 | REP ---
PORTABLE CHEST X-RAY: Single view. HISTORY: Chest pain. Comparison chest x-ray August 07, 2018. FINDINGS: A bipolar pacemaker has been installed in the right heart via the left side in the interval since the prior chest x-ray. Skin tamra are seen adjacent to the power plant. EKG electrodes are noted. The heart remains mildly enlarged unchanged. The aorta is tortuous as before. The lungs are well inflated and clear. Pleural angles are sharp. There is no discernible pneumothorax. IMPRESSION: Status post pacemaker insertion. Mild cardiomegaly. Otherwise no acute disease. Electronically Signed by Jesús Pack MD 08/18/2018 05:38 P
[2018-08-18 14:36] LABS: BLOOD UREA NITROGEN 21 MG/DL (7-18); CALCIUM LEVEL 9.7 MG/DL (8.8-10.2); CARBON DIOXIDE LEVEL 27 MEQ/L (21-32); CHLORIDE LEVEL 106 MEQ/L (98-107); CK-MB VALUE MASS < 1.0 NG/ML (<3.6); CPK CREATINE PHOSPHOKINASE 36 U/L (26-192); CREATININE FOR GFR 1.43 MG/DL (0.55-1.30); GLUCOSE, FASTING 89 MG/DL (70-100); MB/CK RELATIVE INDEX 2.78 (< OR =4); NT-PRO BNP 312 PG/ML (<450); POTASSIUM SERUM 4.4 MEQ/L (3.5-5.1); SODIUM LEVEL 140 MEQ/L (136-145); TROPONIN I < 0.02 NG/ML (< 0.10)
[2018-08-18] MEDS ORDERED: ISOVUE-370 76% 100ML VIAL (Q9967) As Ordered ONE (14:48)
[2018-08-18] MEDS ORDERED: ACETAMINOPHEN TAB 650MG DOSE (2X325MG) PO ONE (16:00)
[2018-08-18 16:08] VITALS: BP 163/71
--- NOTE | 2018-08-18 16:35 | REP ---
CT ANGIOGRAM CHEST: TECHNIQUE: Axial contrast enhanced images from the thoracic inlet to the upper abdomen using 100 mL Isovue 370 intravenous contrast material with multiplanar reformations. COMPARISON: 08/07/[address] evidence of pulmonary embolism. There is no thoracic aortic aneurysm or dissection with mild atherosclerotic calcifications noted. There is moderate cardiomegaly. There is moderate cardiomegaly. There is no pleural or pericardial effusion. There is no mediastinal, hilar, or chest wall, or lymphadenopathy. Scattered fibrotic changes are again noted unchanged. There is a stable 6 mm right lower lobe nodule. There is a small hiatal hernia. Stable oval cystic structure is again seen between the stomach and pancreas. There are degenerative changes of the spine. IMPRESSION: No CT evidence of pulmonary embolism. No change since prior study of 08/07/2018. Electronically Signed by Giuseppe Urban MD 08/18/2018 06:21 P
--- NOTE | 2018-08-18 21:33 | ECGEPIP ---
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
== END 2018-08-18 16:30 | disposition home or self-care (01) ==
LOC: M ED 12:56
DX: S20.212A Contusion of left front wall of thorax, initial encounter (principal); R07.89 Other chest pain; Z98.890 Other specified postprocedural states; Z95.0 Presence of cardiac pacemaker; X58.XXXA Exposure to other specified factors, initial encounter; Y92.89 Other specified places as the place of occurrence of the external cause; R06.02 Shortness of breath; I48.91 Unspecified atrial fibrillation; I47.1 Supraventricular tachycardia; I10 Essential (primary) hypertension; K21.9 Gastro-esophageal reflux disease without esophagitis; E03.9 Hypothyroidism, unspecified; D33.3 Benign neoplasm of cranial nerves; Z88.1 Allergy status to other antibiotic agents; Z88.2 Allergy status to sulfonamides; Z88.8 Allergy status to other drugs, medicaments and biological substances; Z79.899 Other long term (current) drug therapy; Z79.01 Long term (current) use of anticoagulants; Z79.82 Long term (current) use of aspirin
CPT/HCPCS: 36415; 71045; 71275; 80048; 82550; 82553; 83880; 84443; 84484; 85025; 85610; 93005; 93041; 94760; 99285; Q9967

== ENCOUNTER 2018-10-09 18:22 | Emergency (ER) | payer MEDICARE ==
[~2018-10-09] VITALS: Ht 152.4 cm; Wt 125.9 kg
--- NOTE | 2018-10-09 19:43 | REP ---
Clinical: Left lower extremity pain and swelling . Technique: Urban scale and color Doppler evaluation using linear high frequency transducer. Findings: Ultrasound examination of the left lower extremity deep venous structures from the common femoral vein to the popliteal vein demonstrates normal compressibility flow and wave patterns in response to respiration and augmentation. There is no evidence for deep venous thrombosis. Impression: No evidence for deep venous thrombosis. Electronically Signed by Sloan Love MD 10/09/2018 07:35 P
[2018-10-09] MEDS ORDERED: DILT240C28 OR (20:39)
[2018-10-09] MEDS ORDERED: BISO10TA6 OR (20:39)
--- NOTE | 2018-10-09 22:22 | REP ---
Clinical: Trauma. Fall. Technique: AP, lateral, bilateral oblique and sunrise views of the left knee. Findings: Advanced osteopenia and tricompartmental osteoarthritic degenerative changes are appreciated. Anterior swelling. No obvious acute fracture dislocation. Impression: Advanced osteopenia and degenerative changes. No obvious acute fracture or dislocation. Electronically Signed by Sloan Love MD 10/09/2018 10:14 P
--- NOTE | 2018-10-09 22:23 | REP ---
Clinical: Trauma/fall. Technique: AP and lateral views of the left tibia / fibula. Findings: Age-related osteopenia and arthritic changes at the knee and ankle joint. No acute fracture or dislocation. No subcutaneous emphysema or radiodense foreign body. Impression: Osteopenia and degenerative changes. No acute fracture or dislocation. Electronically Signed by Sloan Love MD 10/09/2018 10:15 P
[2018-10-09 22:29] VITALS: BP 139/65
== END 2018-10-09 22:36 | disposition home or self-care (01) ==
LOC: M ED 18:22
DX: S80.12XA Contusion of left lower leg, initial encounter (principal); W19.XXXA Unspecified fall, initial encounter; Y92.89 Other specified places as the place of occurrence of the external cause; I48.91 Unspecified atrial fibrillation; I10 Essential (primary) hypertension; J45.909 Unspecified asthma, uncomplicated; E03.9 Hypothyroidism, unspecified; E78.5 Hyperlipidemia, unspecified; I47.2 Ventricular tachycardia; D33.3 Benign neoplasm of cranial nerves; Z87.891 Personal history of nicotine dependence; Z88.1 Allergy status to other antibiotic agents; Z88.2 Allergy status to sulfonamides; Z88.8 Allergy status to other drugs, medicaments and biological substances; Z79.899 Other long term (current) drug therapy; Z79.01 Long term (current) use of anticoagulants; Z79.82 Long term (current) use of aspirin

== ENCOUNTER → 2018-10-20 | Outpatient (REF) | payer MEDICARE ==
[~2018-10-20] MED LIST changes: +BISO10TA6 OR; +DILT240C28 OR
[2018-10-20 10:40] LABS: RHEUMATOID FACTOR QUANT < 10.0 IU/ML (<15.0); URIC ACID 7.1 MG/DL (2.6-6.0)
[2018-10-23 00:06] LABS: ANA (HEP2) Negative (.); CYCLIC CITRULLINATED PEPTIDE 7 units (0-19)
== END ==
LOC: M SFHCPLAZ 09:42
PROVIDERS: ATTEND Internal Medicine Rheumatology
DX: M19.90 Unspecified osteoarthritis, unspecified site (principal); R70.0 Elevated erythrocyte sedimentation rate

== ENCOUNTER → 2018-10-23 | Outpatient (REF) | payer MEDICARE ==
[2018-10-23 16:26] LABS: TOTAL PROTEIN,RANDOM URINE 6.6 MG/DL (0.0-12.0); URINE TOTAL PROTEIN 6.6 MG/DL (0-12)
== END ==
LOC: M LAB REF 15:37
PROVIDERS: ATTEND Internal Medicine Hematology & Oncology
DX: Z12.31 Encounter for screening mammogram for malignant neoplasm of breast (principal)

== ENCOUNTER → 2018-11-05 | Outpatient (REF) | payer MEDICARE ==
[~2018-11-05] MED LIST changes: +BISO10TA14 PO; -BISO10TA6 OR; +BISO5TAB14 PO; -BISO5TAB5 PO; -DILT240C28 OR; +DILT240C28 PO; -LIOT25TA2 PO; +LIOT25TA8 PO; +PRED10TA2 PO; +WARF-58 PO
[2018-11-05 17:46] LABS: CALCIUM LEVEL 8.8 MG/DL (8.8-10.2); CREATININE FOR GFR 1.66 MG/DL (0.55-1.30); FREE T4 1.35 NG/DL (0.76-1.46); POTASSIUM SERUM 4.2 MEQ/L (3.5-5.1); THYROID STIMULATING HORMONE 2.11 uIU/ML (0.358-3.740)
== END ==
LOC: M SFHCPLAZ 15:41
PROVIDERS: ATTEND Family Medicine
DX: D89.89 Other specified disorders involving the immune mechanism, not elsewhere classified (principal); E03.9 Hypothyroidism, unspecified
CPT/HCPCS: 36415; 80048; 84439; 84443; G0463

== ENCOUNTER → 2018-12-16 | Outpatient (REF) | payer MEDICARE ==
[~2018-12-16] MED LIST changes: +BISO10TA10 PO; -BISO10TA14 PO; -BISO5TAB14 PO; +BISO5TAB5 PO; +LIOT25TA2 PO; -LIOT25TA8 PO
[2018-12-16 13:37] LABS: CALCIUM LEVEL 9.7 MG/DL (8.8-10.2); CREATININE FOR GFR 1.49 MG/DL (0.55-1.30); GLOMERULAR FILTRATION RATE 36.1 (>39); POTASSIUM SERUM 4.7 MEQ/L (3.5-5.1)
== END ==
LOC: M SFHCPLAZ 08:34
PROVIDERS: ATTEND Family Medicine
DX: R60.0 Localized edema (principal)
CPT/HCPCS: 36415; 80048; 83880; G0463

== ENCOUNTER 2018-12-28 13:37 | Inpatient (IN) | payer MEDICARE ==
[~2018-12-28] VITALS: Ht 152.4 cm; Wt 127.3 kg
[~2018-12-28 13:37] MED LIST changes: -BISO10TA10 PO; +BISO10TA14 PO; +BISO5TAB14 PO; -BISO5TAB5 PO; -LIOT25TA2 PO; +LIOT25TA8 PO; -PRED10TA2 PO; -WARF-58 PO
[2018-12-28] MEDS ORDERED: ONDANSETRON 4MG/2ML VIAL (J2405) IV ONE (15:00)
[2018-12-28] MEDS ORDERED: MORPHINE 4 MG/ML 1ML VIAL/SYRINGE (J2270) IV ONE (15:00)
[2018-12-28 15:52] LABS: BASO % 0.3 % (0.0-1.0); EOS # 0.3 10^3/uL (0.0-0.50); EOS % 3.3 % (0.0-3.0); HEMATOCRIT 37.9 % (36.0-47.0); HEMOGLOBIN 12.4 g/dl (12.0-15.5); LYMPH # 0.9 10^3/uL (1.5-4.5); LYMPH % 9.8 % (24.0-44.0); MEAN CORPUSCULAR HGB CONC 32.7 g/dl (32.0-36.5); MEAN CORPUSCULAR VOLUME 88.8 fl (80.0-96.0); MONO # 0.7 10^3/uL (0.0-0.8); MONO % 7.4 % (0.0-5.0); NEUTROPHILS # 7.1 10^3/uL (1.8-7.7); NEUTROPHILS % 78.8 % (36.0-66.0); PLATELET COUNT, AUTOMATED 238 10^3/uL (150-450); RED BLOOD COUNT 4.27 10^6/uL (4.00-5.40)
[2018-12-28 16:14] LABS: CALCIUM LEVEL 8.6 MG/DL (8.8-10.2); CREATININE FOR GFR 1.8 MG/DL (0.55-1.30); POTASSIUM SERUM 4.4 MEQ/L (3.5-5.1)
[2018-12-28] MEDS: WARFARIN SOD 3 MG TAB PO SCH ×2 (17:00→21:00)
--- NOTE | 2018-12-28 17:43 | REPVR ---
EXAM: US Duplex Right Lower Extremity Veins, Limited EXAM DATE/TIME: 12/28/2018 4:56 PM CLINICAL HISTORY: 78 years old, female; Pain; Leg, lower; Right; Additional info: Right leg pain TECHNIQUE: Imaging protocol: Real-time Duplex ultrasound of the Right Lower Extremity with 2-D ramirez scale, color Doppler flow and spectral waveform analysis with image documentation. Limited exam was focused on the right lower extremity veins. COMPARISON: US Duplex, Ext,LOWER veins,unilat 10/09/2018 7:09 PM FINDINGS: Right deep veins: Unremarkable. The common femoral, femoral, proximal profunda femoral and popliteal veins are patent without thrombus. Normal Doppler waveforms. Normal compressibility and/or augmentation response. Right superficial veins: Unremarkable. Saphenofemoral junction is patent without thrombus. Soft tissues: Unremarkable. IMPRESSION: No acute findings. No evidence of deep vein thrombosis. Electronically signed by: Davis Ordoñez On 12/28/2018 17:42:19 PM
[2018-12-28 17:56] LABS: INR 1.76; PROTHROMBIN TIME 20.3 SECONDS (11.8-14.0)
[2018-12-28] MEDS ORDERED: WARFARIN SOD 5 MG TAB PO ONE (18:00)
[2018-12-28] MEDS ORDERED: WARF-58 PO (18:32)
--- NOTE | 2018-12-28 19:15 | HPEPDOC ---
[facility] Medical History & Physical Date of Admission Dec 28, 2018 Date of Service: Dec 28, 2018 Primary Care Physician: JACK RAZO MD Attending Physician: LINDA SWANSON MD History and Physical TIME OF SERVICE: 7:30 PM CHIEF COMPLAINT: Knee pain HISTORY OF PRESENT ILLNESS: This is a 78-year-old female who presents with complaints of sudden onset, 10 out of 10 in severity, nonradiating, right knee pain that began last night and became progressively worse. She had difficulties walking to the bathroom and had to be pushed to the restroom while sitting on the seat in her rolling walker by her . She could not identify any aggravating or alleviating factors. She denies eating any new foods, denies having fevers or chills, and denies falling recently. Her last fall was more than 2 months ago which she attributes to her legs giving out. She last received steroid injections in her knee more than 10 years ago. She is also c/o right hip pain that is less severe than the right knee pain. REVIEW OF SYSTEMS: 12 point review of systems negative except as listed in HPI PAST MEDICAL/ SURGICAL HISTORY: Chronic HTN Chronic Diastolic CHF Chronic A. fib (on Coumadin ) JESSY on CPAP Hypothyroidism CKD3 Skin cancer on nose s/p excision Acoustic neuroma GERD Status post pacemaker placement for management of bradycardia Status post oophorectomy. Status post hysterectomy. Status post C-sections 4 Status post sinus surgery SOCIAL HISTORY: Quit smoking. FAMILY HISTORY: Cancer Diabetes ALLERGIES: Please see below. HOME MEDICATIONS: Please see below. PHYSICAL EXAMINATION: VITAL SIGNS: Please see below. GENERAL APPEARANCE: Well-nourished, well-developed, not in apparent distress HEENT: Normocephalic, atraumatic, mucous members moist and pink, neck short CARDIOVASCULAR: Regular rate and rhythm. No murmurs, rubs or gallops, pacemaker palpable at the left upper chest LUNGS: Clear to auscultation bilaterally on room air ABDOMEN: Hypoactive bowel sounds, soft and nontender on palpation MUSCULOSKELETAL: Range of motion intact in all 4 extremities. The right knee is more red with some swelling at the anterior aspect when compared to the left knee INTEGUMENT: She has excoriations at the right lower leg NEUROLOGICAL: Cranial nerves 2-12 are grossly intact. Speech is not dysarthric PSYCHIATRIC: Alert and oriented to person, place and time LABORATORY DATA: See below. IMAGING: Right lower extremity ultrasound is negative for DVT. X-ray of the hips and pelvis report is pending X-ray of the right hip report is pending MICROBIOLOGY: Please see below. ASSESSMENT: Ms. Garcia is a 78-year-old female with a past medical history of chronic hyperte nsion, chronic diastolic congestive heart failure, atrial fibrillation, JESSY, hypothyroidism, and CKD3 who will be admitted for management of right knee pain and RUTHY. PLAN: 1.Right knee pain Differential includes gout versus worsening osteoarthritis At her baseline she has an unsteady gait 2/2 OA and uses a walker The patient reports that morphine, which she received in the ED did not alleviate the pain Plan: Admit to Med-Surg/ f/u ESR / pending the report from the x-ray of the knee and uric acid the daytime may consider Arthocentesis +/- Orthopedics consult for corticosteroid injection/ PT consult /pain control with acetaminophen, and lidocaine for now 2.RUTHY on CKD3 Likely prerenal as the patient reports she has not been drinking much fluid today. She denies NSAID use Creatinine 1.80, previously 1.49 on December 16 BUN 37, previously 27 GFR 29, previously 36.9 Plan: f/u UA, ulytes for FENa, renal US / IVF / avoid nephrotoxins including NSAIDs 3. Chronic HTN Plan: Resume home meds 4. Chronic Diastolic CHF Plan: Resume home meds 5. A. fib Plan: Resume home meds 6. JESSY Plan: home CPAP 7. Hypothyroidism Plan: Resume home meds 8. Obesity BMI 54.2 Has CPAP PCO2 within normal limits unlikely she has also has OHS A1c 5.7 in September 2009 Plan: f/u A1C / pt can can f/u w PCP for manager development consult & referral for Bariatric surgery / recommend cardiovascular exercise for 40 min 4-5 days a week DVT prophylaxis with Coumadin. Disposition pending clinical course Vital Signs Vital Signs Date Time Temp Pulse Resp B/P (MAP) Pulse Ox O2 Delivery O2 Flow Rate FiO2 12/28/18 19:10 97.6 63 20 132/61 (84) 95 Room Air Laboratory Data Labs 24H Laboratory Tests 2 12/28/18 15:10: Immature Granulocyte % (Auto) 0.4, White Blood Count 9.0, Red Blood Count 4.27, Hemoglobin 12.4, Hematocrit 37.9, Mean Corpuscular Volume 88.8, Mean Corpuscular Hemoglobin 29.0, Mean Corpuscular Hemoglobin Concent 32.7, Red Cell Distribution Width 13.3, Platelet Count 238, Neutrophils (%) (Auto) 78.8H, Lymphocytes (%) (Auto) 9.8L, Monocytes (%) (Auto) 7.4H, Eosinophils (%) (Auto) 3.3H, Basophils (%) (Auto) 0.3, Neutrophils # (Auto) 7.1, Lymphocytes # (Auto) 0.9L, Monocytes # (Auto) 0.7, Eosinophils # (Auto) 0.3, Basophils # (Auto) 0.0, Nucleated Red Blood Cells % (auto) 0.0, Prothrombin Time 20.3H, Prothromb Time International Ratio 1.76, Anion Gap 7L, Glomerular Filtration Rate 29.0L, Blood Urea Nitrogen 37H, Creatinine 1.80H, Sodium Level 140, Potassium Level 4.4, Chloride Level 108H, Carbon Dioxide Level 25, Calcium Level 8.6L CBC/BMP Laboratory Tests 12/28/18 15:10 Red Blood Count 4.27, Mean Corpuscular Volume 88.8, Mean Corpuscular Hemoglobin 29.0, Mean Corpuscular Hemoglobin Concent 32.7, Red Cell Distribution Width 13.3, Neutrophils (%) (Auto) 78.8 H, Lymphocytes (%) (Auto) 9.8 L, Monocytes (%) (Auto) 7.4 H, Eosinophils (%) (Auto) 3.3 H, Basophils (%) (Auto) 0.3, Neutrophils # (Auto) 7.1, Lymphocytes # (Auto) 0.9 L, Monocytes # (Auto) 0.7, Eosinophils # (Auto) 0.3, Basophils # (Auto) 0.0, Calcium Level 8.6 L Home Medications Scheduled Aspirin (Aspirin EC) 81 Mg Tabec, 81 MG PO DAILY Bisoprolol Fumarate (Bisoprolol Fumarate) 10 Mg Tablet, 10 MG PO DAILY Cholecalciferol (Vitamin D3) (Vitamin D3) 1,000 Unit Tab, 1,000 UNIT PO DAILY Diltiazem HCl (Dilt-Xr) 240 Mg Cap.er.deg, 240 MG PO DAILY Furosemide (Furosemide) 20 Mg Tab, 20 MG PO DAILY Levothyroxine Sodium (Synthroid) 137 Mcg Tab, 137 MCG PO DAILY Losartan Potassium (Losartan Potassium) 100 Mg Tab, 100 MG PO QHS [place]-3/Dha/Epa/Fish Oil (Fish Oil 1,000 mg Softgel) 1 Cap Cap, 1 CAP PO DAILY Spironolactone (Spironolactone) 25 Mg Tab, 25 MG PO DAILY Vit A/Vit C/Vit E/Zinc/Copper (Preservision Areds Softgel) 1 Each Capsule, 1 CAP PO DAILY Warfarin Sodium (Coumadin) 3 Mg Tab, 3 MG PO 3XW QPM: ,,SAT Warfarin Sodium (Warfarin Sodium) 3 Mg Tablet, 6 MG PO 4XWK QPM: MON,WED,FRI,SUN Scheduled PRN Albuterol Sulfate (Proair Hfa) 108 Mcg/Act Aer, 2 PUFF INH Q4H PRN for SHORTNESS OF BREATH Diazepam (Diazepam) 2 Mg Tab, 2 MG PO DAILY PRN for ANXIETY Nitroglycerin (Nitrostat) 0.4 Mg Subl, 0.4 MG SL NITRO PRN for CHEST PAIN Propylene Glycol/Peg 400 (Systane 0.3-0.4% Eye Drops) 15 Ml Shannan, 1 DROP OU QID PRN for DRY EYES Sodium Chloride (Putnam) 0.65 % Spr, 2 SPRAY NA QID PRN for NASAL DRYNESS EACH NOSTRIL Allergies Coded Allergies: hydrochlorothiazide (Verified Allergy, Intermediate, HIVES, 08/07/18) sucralfate (Verified Allergy, Intermediate, HIVES, 08/07/18) verapamil (Verified Allergy, Intermediate, hives, 08/07/18) Cephalosporins (Verified Allergy, Unknown, 08/07/18) citalopram (Verified Allergy, Unknown, 08/07/18) salmeterol (Verified Allergy, Unknown, 08/07/18) Sulfa (Sulfonamide Antibiotics) (Verified Adverse Reaction, Intermediate, worsens pemphygoid, 08/07/18) valsartan (Verified Adverse Reaction, Intermediate, HEADACHES AND PALPITATIONS, 08/07/18) Quinolones (Verified Adverse Reaction, Mild, abdominal pain, 08/07/18) captopril (Verified Adverse Reaction, Mild, itching, 08/07/18) A-FIB/CHADSVASC A-FIB History Current/History of A-Fib/PAF?: Yes Current PO Anticoag Therapy: Yes Treatment Treatment ordered: Warfarin LINDA SWANSON MD Dec 28, 2018 19:15
[2018-12-28] MEDS ORDERED: LIDOCAINE 5% (LIDODERM) PATCH TD ONE (19:30)
[2018-12-28] MEDS: NS 1,000 ML IV SCH (20:39)
[2018-12-28 20:50] LABS: URIC ACID 8.6 MG/DL (2.6-6.0)
[2018-12-28] MEDS ORDERED: ALBUTEROL 90 MCG/ACT 8GM HFA INHALER INH PRN (21:00)
[2018-12-28] MEDS ORDERED: NITROGLYCERIN 0.4 MG SUBL TABLET SL PRN (21:00)
[2018-12-28] MEDS: LOSARTAN 50 MG TAB PO SCH (21:00)
[2018-12-28] MEDS ORDERED: POLYVINYL ALCOHOL OPHTH SOLN 15 ML(LIQUITEARS) OU PRN (21:00)
[2018-12-28] MEDS ORDERED: diazePAM 2 MG TAB PO PRN (21:00)
[2018-12-28 21:34] LABS: ERYTHROCYTE SEDIMENTATION RATE 69 mm/hr (0-30)
[2018-12-28] MEDS: ACETAMINOPHEN 650MG ER TAB (TYLENOL ARTHRITIS) PO SCH (22:07)
--- NOTE | 2018-12-28 22:16 | REPVR ---
EXAM: US Retroperitoneal Limited, Kidneys EXAM DATE/TIME: 12/28/2018 9:02 PM CLINICAL HISTORY: 78 years old, female; Condition or disease; Other: Chronic kidney disease; Additional info: Edgar on ckd TECHNIQUE: Imaging protocol: Real-time ultrasound of the retroperitoneum with image documentation. Examination was focused on the kidneys. COMPARISON: No relevant prior studies available. FINDINGS: Right kidney: 10.9 cm in length. No mass. No stones. No hydronephrosis. Left kidney: 11.4 cm in length. No mass. No stones. No hydronephrosis. Urinary bladder: Grossly unremarkable. IMPRESSION: No acute sonographic findings. Electronically signed by: Richar Ferguson On 12/28/2018 22:16:09 PM
[2018-12-29] MEDS ORDERED: LEVOTHYROXINE 137MCG TABLET (0.137MG) PO SCH (06:00)
[2018-12-29 07:13] LABS: HEMATOCRIT 36.8 % (36.0-47.0); HEMOGLOBIN 12.1 g/dl (12.0-15.5); MEAN CORPUSCULAR HEMOGLOBIN 29.5 pg (27.0-33.0); MEAN CORPUSCULAR HGB CONC 32.9 g/dl (32.0-36.5); MEAN CORPUSCULAR VOLUME 89.8 fl (80.0-96.0); PLATELET COUNT, AUTOMATED 211 10^3/uL (150-450); WHITE BLOOD COUNT 6.6 10^3/uL (4.0-10.0)
[2018-12-29] MEDS ORDERED: **NOTE PATIENT COMMENT** MISC XX ONE (07:30)
[2018-12-29 07:34] LABS: INR 2.11; PROTHROMBIN TIME 23.4 SECONDS (11.8-14.0)
[2018-12-29 07:42] LABS: CALCIUM LEVEL 8.8 MG/DL (8.8-10.2); CREATININE FOR GFR 1.48 MG/DL (0.55-1.30); GLOMERULAR FILTRATION RATE 36.4 (>39); MAGNESIUM LEVEL 2.6 MG/DL (1.8-2.4); POTASSIUM SERUM 4.5 MEQ/L (3.5-5.1)
[2018-12-29] MEDS ORDERED: bisoproloL fumarate 10 MG TAB PO SCH (09:00)
[2018-12-29] MEDS: FUROSEMIDE 20 MG TAB PO SCH (09:40)
[2018-12-29] MEDS: SPIRONOLACTONE 25 MG TAB PO SCH (09:40)
[2018-12-29] MEDS: ASPIRIN 81 MG ENTERIC TAB PO SCH (09:40)
[2018-12-29] MEDS: OCUVITE 1 TAB PO SCH (09:40)
--- NOTE | 2018-12-29 09:53 | REP ---
AP PELVIS AND RIGHT HIP: 12/28/2018. Clinical history: Right hip pain. Comparison: 09/22/2009. Technique: AP pelvis and two views of the right hip provided. Findings:AP pelvis: A single view shows pelvic ring intact. SI joints intact. Sacral ala and foramina intact as are the iliac wings, acetabular roof shows spurs bilaterally. There is sclerosis and hip joint space narrowing on both sides. Slightly greater right than left. Some marginal osteophytes are present on both hips. Pubic rami, symphysis pubis intact. Right hip: The two views show hip joint space narrowing with near [id number] appearance. Rim osteophytes acetabular roof and femoral head are prominent sclerotic changes of the acetabular roof. No evidence of AVN or fracture. Femoral neck, trochanters and proximal shaft intact. Impression: 1. Bilateral hip arthritis, right greater than left without fracture, avulsion or focal bone lesion. Pelvic ring intact. 2. Hip joint space narrowing and osteophyte formation, right greater than left. No evidence of AVN. Electronically Signed by Sebastian Tuttle MD 12/29/2018 09:56 A
--- NOTE | 2018-12-29 09:53 | REP ---
RIGHT KNEE, COMPLETE: 12/28/2018. Clinical history. Right knee pain. Findings: Three views were provided. Technologist states best images possible. There is knee osteoarthritis with narrowing of the medial compartment, marginal osteophytes at all three joint lines. Largest are in the superior pole the patella and medial tibial plateau. No definite joint effusion or fracture. Impression: 1. Tricompartment osteoarthritis with narrowing of the medial compartment and no fracture, definite joint effusion, avulsion or loose body identified. Electronically Signed by Sebastian Tuttle MD 12/29/2018 09:56 A
[2018-12-29] MEDS: ACETAMINOPHEN 650MG ER TAB (TYLENOL ARTHRITIS) PO SCH (10:15)
[2018-12-29 13:30] VITALS: BP 139/58
[2018-12-29 14:17] LABS: APPEARANCE, URINE HAZY (CLEAR); BACTERIA, URINE AUTO 1+ (NEGATIVE); BILIRUBIN, URINE AUTO NEGATIVE (NEGATIVE); BLOOD, URINE BLOOD 2+ (NEGATIVE); COLOR, URINE STRAW (YELLOW); GLUCOSE, URINE (UA) AUTO NEGATIVE (NEGATIVE); KETONE, URINE AUTO NEGATIVE (NEGATIVE); LEUKOCYTE ESTERASE, URINE AUTO 2+ (NEGATIVE); MUCUS, URINE SMALL (NEGATIVE); NITRITE, URINE AUTO POSITIVE (NEGATIVE); PROTEIN, URINE AUTO NEGATIVE (NEGATIVE); RBC, URINE AUTO 8 /HPF (0-3); SPECIFIC GRAVITY URINE AUTO 1.008 (1.002-1.035); SQUAMOUS EPITHELIAL CELL UR AU 1 /HPF (0-6); UROBILINOGEN, URINE AUTO 0.2 mg/dL (0.0-2.0); WBC, URINE AUTO 25 /HPF (0-3)
[2018-12-29] MEDS ORDERED: COLCHICINE 0.6 MG TAB PO ONE ×2 (14:30→15:40)
[2018-12-29] MEDS ORDERED: HYDROmorphone 2 MG TAB PO PRN (14:30)
[2018-12-29 14:41] LABS: CREATININE,RANDOM URINE 40.6 MG/DL; POTASSIUM RANDOM URINE 20.9 MEQ/L; SODIUM,RANDOM URINE 76 MEQ/L; UREA NITROGEN RANDOM URINE 354 MG/DL
[2018-12-29] MEDS ORDERED: LIDOCAINE 1% MDV 20ML VIAL As Ordered ONE (15:18)
[2018-12-29] MEDS ORDERED: LIDOCAINE 1% MDV 20ML VIAL SC ONE (15:30)
[2018-12-29 15:43] LABS: C REACTIVE PROTEIN QUANTITATIV 1.37 MG/DL (0.00-0.30)
[2018-12-29] MEDS: predniSONE 20 MG TAB PO SCH (15:53)
--- NOTE | 2018-12-29 17:26 | CR ---
DATE OF CONSULTATION: 12/29/2018 CHIEF COMPLAINT: Right knee pain. HISTORY OF THE PRESENT ILLNESS: Lamar Garcia is a 78-year-old female who two nights ago had acute onset of right knee pain. The patient has known osteoarthritis; however, her pain suddenly became more severe and she had difficulty bearing weight. She was seen in the emergency room where radiographs were performed and showed varus knee osteoarthritis. There were no fractures. She denies any injury. Patient was admitted for pain control. I was consulted today given her knee pain that is not improving with pain medication. Patient denies any fevers, chills, or other concerning symptoms. She does have pain with any movement or weightbearing on the right knee. It is primarily in the medial compartment of the knee where her osteoarthritis is most severe. PAST MEDICAL HISTORY: 1. Hypertension. 2. Diastolic congestive heart failure (CHF). 3. Atrial fibrillation, on Coumadin. 4. Obstructive sleep apnea (JESSY) on continuous positive airway pressure (CPAP). 5. Hypothyroidism. 6. Chronic kidney disease, stage III. 7. Skin cancer and now status post excision. 8. Acoustic neuroma, status post radiation. 9. Gastroesophageal reflux disease (GERD). PAST SURGICAL HISTORY: Pacemaker placement, oophorectomy, hysterectomy, (C) section times four, sinus surgery. SOCIAL HISTORY: The patient is . She does not smoke. ALLERGIES: HYDROCHLOROTHIAZIDE, SUCRALFATE, VERAPAMIL, CEPHALOSPORINS, CITALOPRAM, SALMETEROL, SULFA, VALSARTAN, QUINOLONES, CAPTOPRIL. HOME MEDICATIONS: Aspirin, bisoprolol, vitamin D3, diltiazem, furosemide, levothyroxine, losartan, fish oil, spironolactone, warfarin, multivitamin. PHYSICAL EXAMINATION: Most recent vital signs: Temperature 97.9, pulse 63, respiratory rate 18, blood pressure 139/58. General: Well appearing, alert and oriented, in no acute distress. HEENT: Atraumatic. Cardiovascular: Regular rate and rhythm. Lungs: Clear to auscultation. Abdomen: Soft, nontender. Musculoskeletal: Patient is able to fully extend and flex her knee to approximately 90 degrees. The patient is morbidly obese, and her range of motion is somewhat limited by her size in addition to pain. She is neurovascularly intact distally. Pain with palpation, primarily in the medial aspect of the joint. There are scratches over the anterior aspect of the leg from the patient scratching. She has no other lesions. Patient is unable to bear weight for me today. LABORATORY STUDIES: White count 6.6, ESR 69, CRP 1.37, INR 2.11. Uric acid is elevated at 8.6. IMAGING: Right knee and hip x-rays are reviewed. There is advanced arthritis in both the right knee and hip. No fractures or other obvious pathology. IMPRESSION: Acute on chronic right knee pain with known osteoarthritis. PLAN: After informed consent was obtained, I did attempt to aspirate the knee. After the knee was appropriately anesthetized with 1% lidocaine, a spinal needle was used. I did feel as if I had gained access to the joint, but the tap was dry. However, I was unable to confirm this given patient is morbidly obese and given her anatomy, I could not confirm whether or not I was indeed in the knee joint. I do recommend an interventional radiology (IR) guided aspiration under x-ray to confirm placement of the needle in the joint and again to attempt to draw out any knee fluid to send for culture, gram stain, cell count, which is the most important, and crystals. The cell count should be done first followed by the crystals and then culture. Primarily we would want to rule out any sort of infection. This may, indeed, be gout or pseudogout. The patient is being treated with colchicine, which was just started, so we will see if that helps her. All of the patient's questions were answered, and she is in agreement with this plan. We will continue to observe the patient. ORLIN
[2018-12-29] MEDS: NS 1,000 ML IV SCH (17:38)
[2018-12-29] MEDS: WARFARIN SOD 3 MG TAB PO SCH (17:38)
--- NOTE | 2018-12-29 20:54 | IPNPDOC ---
Text Note Date of Service The patient was seen on 12/29/18. NOTE Subjective: Patient complains of severe right knee pain 8 out of 10, patient stated at that pain is excruciating. Objective GENERAL APPEARANCE: Well-nourished, well-developed, not in apparent distress HEENT: Normocephalic, atraumatic, mucous members moist and pink, neck short CARDIOVASCULAR: Regular rate and rhythm. No murmurs, rubs or gallops, pacemaker palpable at the left upper chest LUNGS: Clear to auscultation bilaterally on room air ABDOMEN: Hypoactive bowel sounds, soft and nontender on palpation MUSCULOSKELETAL: Range of motion intact in all 4 extremities. The right knee is more red with some swelling at the anterior aspect when compared to the left knee INTEGUMENT: She has excoriations at the right lower leg NEUROLOGICAL: Cranial nerves 2-12 are grossly intact. Speech is not dysarthric PSYCHIATRIC: Alert and oriented to person, place and time Assessment and plan: Patient 78 years old female with morbid obesity, history of also arthritis who presented to the hospital with right knee pain. Patient was found to have elevated uric acid. 1.Unsteady gait 2/2 right knee pain Differential includes gout versus worsening osteoarthritis versus pseudogout Orthopedic surgeon recommended IR arthrocentesis of right knee Colchicine, prednisone started Pain management 2.RUTHY on CKD3 Likely prerenal as the patient reports she has not been drinking much fluid today. She denies NSAID use Creatinine 1.80, previously 1.49 on December 16 3. Chronic HTN Plan: Resume home meds 4. Chronic Diastolic CHF Plan: Resume home meds 5. A. fib Plan: Resume home meds Continued to monitor PT/INR 6. JESSY Plan: home CPAP 7. Hypothyroidism Plan: Resume home meds 8. Obesity BMI 54.2 Has CPAP PCO2 within normal limits unlikely she has also has OHS A1c 5.7 in September 2009 Plan: f/u A1C / pt can can f/u w PCP for fire range technician consult & referral for Bariatric surgery / recommend cardiovascular exercise for 40 min 4-5 days a week DVT prophylaxis with Coumadin. VS,Fishbone, I+O VS, Fishbone, I+O Laboratory Tests 12/29/18 06:34 Red Blood Count 4.10, Mean Corpuscular Volume 89.8, Mean Corpuscular Hemoglobin 29.5, Mean Corpuscular Hemoglobin Concent 32.9, Red Cell Distribution Width 13.3, Calcium Level 8.8 Vital Signs Date Time Temp Pulse Resp B/P (MAP) Pulse Ox O2 Delivery O2 Flow Rate FiO2 12/29/18 13:30 97.9 63 18 139/58 (85) 12/29/18 12:35 95 Room Air I&O- Last 24 Hours up to 6 AM 12/29/18 06:00 Output Total 500 ml Balance -500 ml PHYLLIS CALDERON DO Dec 29, 2018 20:54
[2018-12-29] MEDS: METOPROLOL TART 12.5 MG PER 1/2 TAB PO SCH ×2 (21:00→21:30)
[2018-12-29] MEDS: LOSARTAN 50 MG TAB PO SCH (21:31)
[2018-12-29] MEDS: ACETAMINOPHEN TAB 650MG DOSE (2X325MG) PO PRN (21:33)
[2018-12-29 22:00] VITALS: BP 131/54
[2018-12-29] MEDS ORDERED: ACETAMINOPHEN 650MG ER TAB (TYLENOL ARTHRITIS) PO SCH (22:00)
[2018-12-29] MEDS: bisoproloL fumarate 10 MG TAB PO SCH (23:43)
[2018-12-30] MEDS: LEVOTHYROXINE 137MCG TABLET (0.137MG) PO SCH (05:38)
[2018-12-30 05:50] LABS: HEMATOCRIT 36.7 % (36.0-47.0); HEMOGLOBIN 12.1 g/dl (12.0-15.5); MEAN CORPUSCULAR VOLUME 91.1 fl (80.0-96.0); PLATELET COUNT, AUTOMATED 224 10^3/uL (150-450); RED BLOOD COUNT 4.03 10^6/uL (4.00-5.40); WHITE BLOOD COUNT 7.4 10^3/uL (4.0-10.0)
[2018-12-30 06:00] VITALS: BP 133/62
[2018-12-30 06:03] LABS: INR 2.62; PROTHROMBIN TIME 27.9 SECONDS (11.8-14.0)
[2018-12-30 06:18] LABS: CALCIUM LEVEL 8.6 MG/DL (8.8-10.2); CREATININE FOR GFR 1.58 MG/DL (0.55-1.30); GLOMERULAR FILTRATION RATE 33.8 (>39); MAGNESIUM LEVEL 2.6 MG/DL (1.8-2.4); POTASSIUM SERUM 4.7 MEQ/L (3.5-5.1)
[2018-12-30 09:00] VITALS: BP 131/54
[2018-12-30] MEDS ORDERED: COLCHICINE 0.6 MG TAB PO SCH (09:00)
[2018-12-30] MEDS: SPIRONOLACTONE 25 MG TAB PO SCH (09:06)
[2018-12-30] MEDS: predniSONE 20 MG TAB PO SCH (09:06)
[2018-12-30] MEDS: FUROSEMIDE 20 MG TAB PO SCH (09:06)
[2018-12-30] MEDS: OCUVITE 1 TAB PO SCH (09:06)
[2018-12-30] MEDS: ASPIRIN 81 MG ENTERIC TAB PO SCH (09:06)
[2018-12-30] MEDS: COLCHICINE 0.6 MG TAB PO SCH ×2 (11:15→21:22)
[2018-12-30] MEDS: NS 1,000 ML IV SCH (11:16)
[2018-12-30] MEDS: ACETAMINOPHEN TAB 650MG DOSE (2X325MG) PO PRN ×2 (12:06→20:42)
[2018-12-30] MEDS ORDERED: LIDOCAINE 1% MDV 20ML VIAL As Ordered ONE (12:22)
[2018-12-30 14:00] VITALS: BP 130/54
--- NOTE | 2018-12-30 14:13 | REP ---
REASON: Assess for knee joint effusion prior to joint aspiration. Multiple ultrasonographic images of the right knee joint were obtained. Anterior to the patella, there is a 2.5 x 1.1 cm sized complex low-signal structure, consistent with a prepatellar effusion. No gross knee joint effusion was identifiable. Electronically Signed by Tariq Dave DO 12/30/2018 03:35 P
--- NOTE | 2018-12-30 15:04 | IPNPDOC ---
Text Note Date of Service The patient was seen on 12/30/18. NOTE Subjective: Patient complains of severe right knee pain 5 out of 10, patient stated at that pain has been improved since yesterday. Objective GENERAL APPEARANCE: Well-nourished, well-developed, not in apparent distress HEENT: Normocephalic, atraumatic, mucous members moist and pink, neck short CARDIOVASCULAR: Regular rate and rhythm. No murmurs, rubs or gallops, pacemaker palpable at the left upper chest LUNGS: Clear to auscultation bilaterally on room air ABDOMEN: Hypoactive bowel sounds, soft and nontender on palpation MUSCULOSKELETAL: Range of motion intact in all 4 extremities. The right knee is more red with some swelling at the anterior aspect when compared to the left knee INTEGUMENT: She has excoriations at the right lower leg NEUROLOGICAL: Cranial nerves 2-12 are grossly intact. Speech is not dysarthric PSYCHIATRIC: Alert and oriented to person, place and time Assessment and plan: Patient 78 years old female with morbid obesity, history of also arthritis who presented to the hospital with right knee pain. Patient was found to have elevated uric acid. Await arthrocentesis result. Treatment with steroids, colchicine initiated. 1.Right knee pain Differential includes gout versus worsening osteoarthritis versus pseudogout Orthopedic surgeon recommended IR arthrocentesis of right knee Arthrocentesis today with fluid analysis Colchicine, prednisone started We'll avoid NSAIDS due to RUTHY Pain management 2.RUTHY on CKD3 Likely prerenal due to poor oral intake Improved She denies NSAID use 3. Chronic HTN Plan: Resume home meds 4. Chronic Diastolic CHF Plan: Resume home meds 5. A. fib Plan: Resume home meds Continued to monitor PT/INR INR in therapeutic range 6. JESSY Plan: home CPAP 7. Hypothyroidism Plan: Resume home meds 8. Obesity BMI 54.2 Has CPAP PCO2 within normal limits unlikely she has also has OHS A1c 5.7 in September 2009 Plan: f/u A1C / pt can can f/u w PCP for assistance representative consult & referral for Bariatric surgery / recommend cardiovascular exercise for 40 min 4-5 days a week DVT prophylaxis with Coumadin. VS,Fishbone, I+O VS, Fishbone, I+O Laboratory Tests 12/30/18 05:28 Red Blood Count 4.03, Mean Corpuscular Volume 91.1, Mean Corpuscular Hemoglobin 30.0, Mean Corpuscular Hemoglobin Concent 33.0, Red Cell Distribution Width 13.0, Calcium Level 8.6 L Vital Signs Date Time Temp Pulse Resp B/P (MAP) Pulse Ox O2 Delivery O2 Flow Rate FiO2 12/30/18 14:00 98.3 79 18 130/54 (79) 98 12/29/18 12:35 Room Air I&O- Last 24 Hours up to 6 AM 12/30/18 06:00 Intake Total 1450 ml Output Total 50 ml Balance 1400 ml PHYLLIS CALDERON DO Dec 30, 2018 15:04
[2018-12-30] MEDS: WARFARIN SOD 3 MG TAB PO SCH (17:12)
[2018-12-30] MEDS: bisoproloL fumarate 10 MG TAB PO SCH (20:42)
[2018-12-30] MEDS: LOSARTAN 50 MG TAB PO SCH (20:42)
[2018-12-30 22:00] VITALS: BP 156/74
[2018-12-31] MEDS: LEVOTHYROXINE 137MCG TABLET (0.137MG) PO SCH (04:58)
[2018-12-31 06:24] LABS: HEMATOCRIT 37.3 % (36.0-47.0); HEMOGLOBIN 12.2 g/dl (12.0-15.5); MEAN CORPUSCULAR HEMOGLOBIN 29.3 pg (27.0-33.0); MEAN CORPUSCULAR HGB CONC 32.7 g/dl (32.0-36.5); MEAN CORPUSCULAR VOLUME 89.7 fl (80.0-96.0); PLATELET COUNT, AUTOMATED 239 10^3/uL (150-450); RED BLOOD COUNT 4.16 10^6/uL (4.00-5.40); WHITE BLOOD COUNT 8.2 10^3/uL (4.0-10.0)
[2018-12-31 06:33] LABS: INR 2.94; PROTHROMBIN TIME 30.6 SECONDS (11.8-14.0)
[2018-12-31 06:53] LABS: C REACTIVE PROTEIN QUANTITATIV 0.77 MG/DL (0.00-0.30); CALCIUM LEVEL 8.7 MG/DL (8.8-10.2); CREATININE FOR GFR 1.29 MG/DL (0.55-1.30); GLOMERULAR FILTRATION RATE 42.7 (>39); MAGNESIUM LEVEL 2.6 MG/DL (1.8-2.4); POTASSIUM SERUM 4.5 MEQ/L (3.5-5.1)
[2018-12-31] MEDS: NS 1,000 ML IV SCH (09:27)
[2018-12-31] MEDS: COLCHICINE 0.6 MG TAB PO SCH ×2 (09:28→21:34)
[2018-12-31] MEDS: OCUVITE 1 TAB PO SCH (09:28)
[2018-12-31] MEDS: predniSONE 20 MG TAB PO SCH (09:28)
[2018-12-31] MEDS: SPIRONOLACTONE 25 MG TAB PO SCH (09:28)
[2018-12-31] MEDS: ASPIRIN 81 MG ENTERIC TAB PO SCH (09:28)
[2018-12-31] MEDS: FUROSEMIDE 20 MG TAB PO SCH (09:29)
[2018-12-31] MEDS: CETIRIZINE (ZyrTEC) 10 MG TAB PO SCH (09:39)
--- NOTE | 2018-12-31 12:39 | IPNPDOC ---
Subjective Date Seen The patient was seen on 12/31/18. Subjective Chief Complaint/HPI Patient is still complaining of pain in her right knee now. Also left knee is hurting patient unable to do physical therapy secondary to pain General: Denies: ROS Unobtainable, Chills, Night Sweats, Fatigue, Malaise, Normal Appetite, Other Symptoms Constitutional: Denies: Chills, Fever, Malaise, Night Sweats, Weakness, Fatigue, Weight Loss, Lethargy, Other Eyes: Denies: Pain, Vision change, Conjunctivae inflammation, Eyelid inflammation, Redness, Other ENT: Denies: Head Aches, Ear Pain, Dysphagia, Sinus Congestion, Post Nasal Drip, Sore Throat, Epistaxis, Other Symptoms Skin: Denies: Rash, Lesions, Jaundice, Bruising, Itching, Dry, Breakdown, Nail Changes, Other Pulmonary: Denies: Dyspnea, Cough, Pleuritic Chest Pain, Other Symptoms Cardiovascular: Denies: Chest Pain, Palpitations, Orthopnea, Paroxysmal Noc. Dyspnea, Edema, Lt Headedness, Other Symptoms Gastrointestinal: Denies: Nausea, Vomiting, Abdominal Pain, Diarrhea, Constipation, Melena, Hematochezia, Other Symptoms Endocrine: Denies: Polydipsia, Polyphagia, Polyuria, Heat Intolerance, Cold Intolerance, Other Endocrine Sx Musculoskeletal: Reports: Other Symptoms (. Bilateral knee pain) Neurological: Denies: Weakness, Numbness, Incoordination, Change in speech, Confusion, Seizures, Other Symptoms Objective Physical Examination General Exam: Positive: Alert, Cooperative Eye Exam: Positive: PERRLA ENT Exam: Positive: Atraumatic Neck Exam: Positive: Supple Chest Exam: Positive: Clear to auscultation, Normal air movement Heart Exam: Positive: Rate Normal, Normal S1, Normal S2 Abdomen Exam: Positive: Normal bowel sounds, Soft Extremity Exam: Positive: Normal pulses, Other (positive tenderness on both knees on palpation, but no restriction of movements) Skin Exam: Positive: Nl turgor and temperature Assessment /Plan Problems (1) Acute gout Status: Acute (2) Unable to ambulate Status: Acute (3) Bilateral hip joint arthritis Status: Chronic (4) Osteoarthritis of right knee Status: Chronic (5) Chronic atrial fibrillation Status: Chronic Plan/VTE VTE Prophylaxis Ordered?: Yes Plan 1.Right knee pain , most likely secondary to acute gout and chronic osteoarthritis of right knee Orthopedic surgeon recommended IR arthrocentesis of right knee Arthrocentesis yesterday with fluid analysis Colchicine, prednisone started We'll avoid NSAIDS due to RUTHY Pain management Physical therapy evaluation today If she is unable to ambulate sufficiently. She might need subacute rehabilitation placement 2.RUTHY on CKD3 stable Likely prerenal due to poor oral intake Improved She denies NSAID use 3. Chronic HTN, stable Plan: Resume home meds 4. Chronic Diastolic CHF Plan: Resume home meds 5. A. fib Plan: Resume home meds Continued to monitor PT/INR INR in therapeutic range 6. JESSY Plan: home CPAP 7. Hypothyroidism Plan: Resume home meds 8. Obesity BMI 54.2 Has CPAP PCO2 within normal limits unlikely she has also has OHS VS, I&O, 24H, Fishbone Vital Signs/I&O Vital Signs Date Time Temp Pulse Resp B/P (MAP) Pulse Ox O2 Delivery O2 Flow Rate FiO2 12/31/18 06:00 96.5 18 98 12/31/18 05:00 68 158/72 12/29/18 12:35 Room Air I&O- Last 24 Hours up to 6 AM 12/31/18 06:00 Intake Total 2440 ml Balance 2440 ml Laboratory Data 24H LABS Laboratory Tests 2 12/31/18 06:00: Nucleated Red Blood Cells % (auto) 0.0, Prothrombin Time 30.6H, Prothromb Time International Ratio 2.94, Anion Gap 7L, Glomerular Filtration Rate 42.7, Blood Urea Nitrogen 35H, Creatinine 1.29, Sodium Level 140, Potassium Level 4.5, Chloride Level 110H, Carbon Dioxide Level 23, Calcium Level 8.7L, Magnesium Level 2.6H, C-Reactive Protein, Quantitative 0.77H CBC/BMP Laboratory Tests 12/31/18 06:00 Red Blood Count 4.16, Mean Corpuscular Volume 89.7, Mean Corpuscular Hemoglobin 29.3, Mean Corpuscular Hemoglobin Concent 32.7, Red Cell Distribution Width 13.2, Calcium Level 8.7 L VONDA JOE MD Dec 31, 2018 12:39
[2018-12-31 14:00] VITALS: BP 131/51
[2018-12-31] MEDS: ACETAMINOPHEN TAB 650MG DOSE (2X325MG) PO PRN (14:28)
[2018-12-31] MEDS: WARFARIN SOD 3 MG TAB PO SCH (17:24)
[2018-12-31] MEDS: bisoproloL fumarate 10 MG TAB PO SCH (21:34)
[2018-12-31] MEDS: LOSARTAN 50 MG TAB PO SCH (21:34)
[2018-12-31 22:00] VITALS: BP 123/57
[2019-01-01] MEDS: NS 1,000 ML IV SCH (05:28)
[2019-01-01] MEDS: LEVOTHYROXINE 137MCG TABLET (0.137MG) PO SCH (05:28)
[2019-01-01 06:00] VITALS: BP 147/67
[2019-01-01 06:20] LABS: HEMATOCRIT 36.1 % (36.0-47.0); HEMOGLOBIN 11.7 g/dl (12.0-15.5); MEAN CORPUSCULAR HEMOGLOBIN 29.3 pg (27.0-33.0); MEAN CORPUSCULAR HGB CONC 32.4 g/dl (32.0-36.5); MEAN CORPUSCULAR VOLUME 90.5 fl (80.0-96.0); PLATELET COUNT, AUTOMATED 223 10^3/uL (150-450); RED BLOOD COUNT 3.99 10^6/uL (4.00-5.40); WHITE BLOOD COUNT 7.1 10^3/uL (4.0-10.0)
[2019-01-01 06:30] LABS: INR 3.52; PROTHROMBIN TIME 35.3 SECONDS (11.8-14.0)
[2019-01-01 06:43] LABS: C REACTIVE PROTEIN QUANTITATIV 0.41 MG/DL (0.00-0.30); CALCIUM LEVEL 8.6 MG/DL (8.8-10.2); CREATININE FOR GFR 1.28 MG/DL (0.55-1.30); MAGNESIUM LEVEL 2.4 MG/DL (1.8-2.4); POTASSIUM SERUM 4.1 MEQ/L (3.5-5.1)
[2019-01-01] MEDS: OCUVITE 1 TAB PO SCH (09:39)
[2019-01-01] MEDS: predniSONE 20 MG TAB PO SCH (09:39)
[2019-01-01] MEDS: COLCHICINE 0.6 MG TAB PO SCH ×2 (09:40→21:33)
[2019-01-01] MEDS: ASPIRIN 81 MG ENTERIC TAB PO SCH (09:40)
[2019-01-01] MEDS: CETIRIZINE (ZyrTEC) 10 MG TAB PO SCH (09:40)
[2019-01-01] MEDS: SPIRONOLACTONE 25 MG TAB PO SCH (09:40)
[2019-01-01] MEDS: FUROSEMIDE 20 MG TAB PO SCH (09:40)
[2019-01-01] MEDS: ACETAMINOPHEN TAB 650MG DOSE (2X325MG) PO PRN (12:31)
[2019-01-01 14:00] VITALS: BP 134/50
[2019-01-01] MEDS: WARFARIN SOD 3 MG TAB PO SCH (14:27)
--- NOTE | 2019-01-01 15:02 | IPNPDOC ---
Date Seen The patient was seen on 01/01/19. Progress Note SUBJECTIVE: pain is improved on steroids/colchicine OBJECTIVE PHYSICAL EXAMINATION: VITAL SIGNS: Please see below. EXTREMITIES: R knee witout palpable effusion, warmth, or erythema NEUROLOGICAL: no focal deficits LABORATORY DATA, IMAGING STUDIES, MICROBIOLOGY: Please see below. ASSESSMENT AND PLAN: 1.Right knee pain , most likely secondary to acute gout and chronic osteoarthritis of right knee Orthopedic surgeon recommended IR arthrocentesis of right knee Arthrocentesis did not have enough fluid to proceed Colchicine, prednisone with improved sc We'll avoid NSAIDS due to RUTHY Pain management Physical therapy evaluation , Pt considering STR If she is unable to ambulate sufficiently. She might need subacute rehabilitation placement 2.RUTHY on CKD3 stable Likely prerenal due to poor oral intake Improved dc IVFs today She denies NSAID use 3. Chronic HTN, stable Plan: Resume home meds 4. Chronic Diastolic CHF Plan: Resume home meds 5. A. fib Plan: Resume home meds Continued to monitor PT/INR INR in therapeutic range 6. JESSY Plan: home CPAP 7. Hypothyroidism Plan: Resume home meds 8. Obesity BMI 54.2 Has CPAP PCO2 within normal limits unlikely she has also has OHS DISPOSITION: possible STR VS, I&O, 24H, Fishbone Vital Signs/I&O Vital Signs Date Time Temp Pulse Resp B/P (MAP) Pulse Ox O2 Delivery O2 Flow Rate FiO2 01/01/19 14:00 98.5 68 18 134/50 (78) 95 12/29/18 12:35 Room Air I&O- Last 24 Hours up to 6 AM 01/01/19 05:59 Intake Total 2900 ml Output Total 650 ml Balance 2250 ml Laboratory Data 24H LABS Laboratory Tests 2 01/01/19 06:08: Nucleated Red Blood Cells % (auto) 0.0, Prothrombin Time 35.3H, Prothromb Time International Ratio 3.52, Anion Gap 1L, Glomerular Filtration Rate 43.0, Blood Urea Nitrogen 30H, Creatinine 1.28, Sodium Level 140, Potassium Level 4.1, Ch loride Level 111H, Carbon Dioxide Level 28, Calcium Level 8.6L, Magnesium Level 2.4, C-Reactive Protein, Quantitative 0.41H CBC/BMP Laboratory Tests 01/01/19 06:08 Red Blood Count 3.99 L, Mean Corpuscular Volume 90.5, Mean Corpuscular Hemoglobin 29.3, Mean Corpuscular Hemoglobin Concent 32.4, Red Cell Distribution Width 13.2, Calcium Level 8.6 L ABBEY DUONG MD Jan 01, 2019 15:02
[2019-01-01] MEDS: bisoproloL fumarate 10 MG TAB PO SCH (21:32)
[2019-01-01] MEDS: LOSARTAN 50 MG TAB PO SCH (21:33)
[2019-01-01 22:00] VITALS: BP 136/81
[2019-01-02] MEDS: LEVOTHYROXINE 137MCG TABLET (0.137MG) PO SCH (05:32)
[2019-01-02 06:00] VITALS: BP 137/75
[2019-01-02 06:40] LABS: HEMOGLOBIN 12.5 g/dl (12.0-15.5); MEAN CORPUSCULAR HGB CONC 32.9 g/dl (32.0-36.5); MEAN CORPUSCULAR VOLUME 91.1 fl (80.0-96.0); PLATELET COUNT, AUTOMATED 216 10^3/uL (150-450); RED BLOOD COUNT 4.17 10^6/uL (4.00-5.40); WHITE BLOOD COUNT 6.1 10^3/uL (4.0-10.0)
[2019-01-02 06:55] LABS: INR 3.11
[2019-01-02 07:08] LABS: BLOOD UREA NITROGEN 27 MG/DL (7-18); C REACTIVE PROTEIN QUANTITATIV < 0.30 MG/DL (0.00-0.30); CALCIUM LEVEL 8.5 MG/DL (8.8-10.2); CARBON DIOXIDE LEVEL 25 MEQ/L (21-32); CHLORIDE LEVEL 110 MEQ/L (98-107); CREATININE FOR GFR 1.27 MG/DL (0.55-1.30); GLOMERULAR FILTRATION RATE 43.4 (>39); GLUCOSE, FASTING 78 MG/DL (70-100); MAGNESIUM LEVEL 2.4 MG/DL (1.8-2.4); POTASSIUM SERUM 4.1 MEQ/L (3.5-5.1); SODIUM LEVEL 142 MEQ/L (136-145)
[2019-01-02] MEDS: OCUVITE 1 TAB PO SCH (08:41)
[2019-01-02] MEDS: ASPIRIN 81 MG ENTERIC TAB PO SCH (08:41)
[2019-01-02] MEDS: SPIRONOLACTONE 25 MG TAB PO SCH (08:41)
[2019-01-02] MEDS: predniSONE 20 MG TAB PO SCH (08:42)
[2019-01-02] MEDS: COLCHICINE 0.6 MG TAB PO SCH ×2 (08:42→21:20)
[2019-01-02] MEDS: CETIRIZINE (ZyrTEC) 10 MG TAB PO SCH (08:42)
[2019-01-02] MEDS: FUROSEMIDE 20 MG TAB PO SCH (08:42)
[2019-01-02] MEDS: WARFARIN SOD 3 MG TAB PO SCH (10:08)
[2019-01-02] MEDS: ACETAMINOPHEN TAB 650MG DOSE (2X325MG) PO PRN (10:16)
[2019-01-02 14:00] VITALS: BP 110/50
--- NOTE | 2019-01-02 18:04 | IPN ---
DATE: 01/02/2019 Overnight, patient continues to complain of right lower extremity knee pain improved with pain medications, rating the pain at 8/10 at the worst when she attempts to move around and ambulate and 5/10 after pain medications. 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 The patient has been cooperative with physical therapy. She has not had any recurrent falls during this admission. Denies any chills. She is being treated for gout and severe osteoarthritis. Temperature 96.5, pulse 56, respiratory rate 18, blood pressure 137/75, 98% on room air. GENERAL: Patient is awake, alert and oriented to person, place and time, answering questions appropriately. No conversational dyspnea. Anicteric sclerae. No jaundice. Pupils are round and reactive. Extraocular muscles are intact. Moist mucous membranes. Thick neck. No jugular venous distention (JVD), thyromegaly or cervical lymphadenopathy. LUNGS: Clear to auscultation. No wheezing, rales, or rhonchi. HEART: S1, S2, sinus rhythm. No murmurs, rubs, or gallops. ABDOMEN: Obese, soft, nontender, nondistended. Positive bowel sounds times four quadrants. EXTREMITIES: Right knee has no warmth, effusion or erythema. There is no pitting edema or cyanosis of bilateral lower extremities. LABORATORY DATA: White count 6, hemoglobin 12, hematocrit 38, platelet count 216. Sodium 142, potassium 4, chloride 110, bicarbonate 25, BUN 27, creatinine 1.27, glucose of 78. IMAGING STUDIES: Extremity ultrasound 12/30/2018 showed complex low signal structure consistent with prepatellar effusion. No gross knee joint effusion was identifiable. ASSESSMENT AND PLAN: This is a 78-year-old morbidly obese female with body mass index (BMI) of 55.8, diastolic congestive heart failure (CHF), atrial fibrillation on chronic warfarin, obstructive sleep apnea (JESSY) on continuous positive airway pressure (CPAP), chronic kidney disease (CKD) stage III, hypertensive heart disease, reflux and acoustic neuroma, presented with significant pain in the right knee without fever or chills, evaluated by orthopedic surgery, unable to bear weight, status post dry arthrocentesis, currently being treated for the following issues: 1. Gout/severe osteoarthritis of the right knee. Orthopedic surgery recommended interventional radiology (IR) arthrocentesis. Bedside arthrocentesis did not have enough fluid to proceed. Currently on colchicine and prednisone with some improvement in pain. Physical therapy has been evaluated and will need subacute rehabilitation placement. 2. Chronic kidney disease, stage III, at baseline creatinine. Avoiding nephrotoxic drugs, nonsteroidal antiinflammatory drugs (NSAIDs) at this time. 3. Morbid obesity, BMI 55.8, complicating care. 4. Obstructive sleep apnea. Resumed on her home CPAP machine. 5. Chronic hypertensive heart disease. Resumed on bisoprolol, losartan. 6. Congestive heart failure, compensated with preserved ejection fraction. Resumed on her home medications. 7. Atrial fibrillation, on chronic anticoagulation and rate control medications. 8. Hypothyroidism. Resumed on levothyroxine. DISPOSITION: She will need subacute rehabilitation placement. will try to install a ramp at home.
[2019-01-02] MEDS: bisoproloL fumarate 10 MG TAB PO SCH (21:19)
[2019-01-02] MEDS: LOSARTAN 50 MG TAB PO SCH (21:20)
[2019-01-02 22:00] VITALS: BP 127/71
[2019-01-03] MEDS: LEVOTHYROXINE 137MCG TABLET (0.137MG) PO SCH (04:32)
[2019-01-03 05:58] LABS: HEMATOCRIT 38.5 % (36.0-47.0); HEMOGLOBIN 12.6 g/dl (12.0-15.5); MEAN CORPUSCULAR HEMOGLOBIN 29.4 pg (27.0-33.0); MEAN CORPUSCULAR HGB CONC 32.7 g/dl (32.0-36.5); PLATELET COUNT, AUTOMATED 249 10^3/uL (150-450); RED BLOOD COUNT 4.28 10^6/uL (4.00-5.40); WHITE BLOOD COUNT 7.4 10^3/uL (4.0-10.0)
[2019-01-03 06:00] VITALS: BP 135/66
[2019-01-03 06:08] LABS: INR 2.32; PROTHROMBIN TIME 25.3 SECONDS (11.8-14.0)
[2019-01-03 06:18] LABS: BLOOD UREA NITROGEN 28 MG/DL (7-18); C REACTIVE PROTEIN QUANTITATIV < 0.30 MG/DL (0.00-0.30); CARBON DIOXIDE LEVEL 26 MEQ/L (21-32); CHLORIDE LEVEL 109 MEQ/L (98-107); GLOMERULAR FILTRATION RATE 42.3 (>39); GLUCOSE, FASTING 82 MG/DL (70-100); MAGNESIUM LEVEL 2.3 MG/DL (1.8-2.4); SODIUM LEVEL 140 MEQ/L (136-145)
[2019-01-03] MEDS: FUROSEMIDE 20 MG TAB PO SCH (09:08)
[2019-01-03] MEDS: SPIRONOLACTONE 25 MG TAB PO SCH (09:08)
[2019-01-03] MEDS: CETIRIZINE (ZyrTEC) 10 MG TAB PO SCH (09:08)
[2019-01-03] MEDS: ASPIRIN 81 MG ENTERIC TAB PO SCH (09:08)
[2019-01-03] MEDS: OCUVITE 1 TAB PO SCH (09:08)
[2019-01-03] MEDS: predniSONE 20 MG TAB PO SCH (09:09)
[2019-01-03] MEDS: COLCHICINE 0.6 MG TAB PO SCH ×2 (09:09→21:15)
[2019-01-03] MEDS: ACETAMINOPHEN TAB 650MG DOSE (2X325MG) PO PRN ×2 (11:44→16:52)
[2019-01-03 14:00] VITALS: BP 133/70
[2019-01-03] MEDS: WARFARIN SOD 3 MG TAB PO SCH (16:52)
[2019-01-03] MEDS: bisoproloL fumarate 10 MG TAB PO SCH (21:15)
[2019-01-03] MEDS: LOSARTAN 50 MG TAB PO SCH (21:16)
[2019-01-03 22:00] VITALS: BP 136/69
[2019-01-04] MEDS: LEVOTHYROXINE 137MCG TABLET (0.137MG) PO SCH (04:31)
[2019-01-04 05:45] LABS: HEMATOCRIT 37.7 % (36.0-47.0); HEMOGLOBIN 12.6 g/dl (12.0-15.5); MEAN CORPUSCULAR HEMOGLOBIN 29.4 pg (27.0-33.0); MEAN CORPUSCULAR HGB CONC 33.4 g/dl (32.0-36.5); MEAN CORPUSCULAR VOLUME 87.9 fl (80.0-96.0); PLATELET COUNT, AUTOMATED 255 10^3/uL (150-450); RED BLOOD COUNT 4.29 10^6/uL (4.00-5.40); WHITE BLOOD COUNT 8.6 10^3/uL (4.0-10.0)
[2019-01-04 05:57] LABS: INR 1.92; PROTHROMBIN TIME 21.7 SECONDS (11.8-14.0)
[2019-01-04 06:00] VITALS: BP 135/63
[2019-01-04 06:02] LABS: BLOOD UREA NITROGEN 35 MG/DL (7-18); C REACTIVE PROTEIN QUANTITATIV < 0.30 MG/DL (0.00-0.30); CALCIUM LEVEL 8.6 MG/DL (8.8-10.2); CARBON DIOXIDE LEVEL 25 MEQ/L (21-32); CHLORIDE LEVEL 106 MEQ/L (98-107); CREATININE FOR GFR 1.47 MG/DL (0.55-1.30); GLOMERULAR FILTRATION RATE 36.7 (>39); GLUCOSE, FASTING 102 MG/DL (70-100); MAGNESIUM LEVEL 2.2 MG/DL (1.8-2.4); POTASSIUM SERUM 4.1 MEQ/L (3.5-5.1); SODIUM LEVEL 141 MEQ/L (136-145)
[2019-01-04] MEDS: ISOSORBIDE DIN (ISORDIL) 10 MG TAB PO SCH ×3 (07:00→17:00)
[2019-01-04] MEDS: predniSONE 20 MG TAB PO SCH (08:40)
[2019-01-04] MEDS: ASPIRIN 81 MG ENTERIC TAB PO SCH (08:40)
[2019-01-04] MEDS: OCUVITE 1 TAB PO SCH (08:40)
[2019-01-04] MEDS: CETIRIZINE (ZyrTEC) 10 MG TAB PO SCH (08:40)
[2019-01-04] MEDS: **hydrALAZINE** 10 MG TAB PO SCH ×4 (08:40→21:00)
[2019-01-04] MEDS: ANALGESIC BALM CRM 120 GM TOP SCH ×4 (09:00→21:48)
[2019-01-04] MEDS: ACETAMINOPHEN TAB 650MG DOSE (2X325MG) PO PRN (10:33)
--- NOTE | 2019-01-04 10:52 | REP ---
Right shoulder three views: There are no comparison studies. There is demineralization. The acromioclavicular glenohumeral articulations are unremarkable. There is no fracture or dislocation. There are no calcifications. Impression: Demineralization. Otherwise, and a Left shoulder: The patient refused the knee left shoulder study. Electronically Signed by Giuseppe Wagner MD 01/04/2019 09:44 A
[2019-01-04 12:36] VITALS: BP 140/59
[2019-01-04 14:00] VITALS: BP 100/52
[2019-01-04] MEDS: WARFARIN SOD 3 MG TAB PO SCH (17:07)
[2019-01-04] MEDS: bisoproloL fumarate 10 MG TAB PO SCH (21:48)
[2019-01-04 22:00] VITALS: BP 113/55
[2019-01-05] MEDS: LEVOTHYROXINE 137MCG TABLET (0.137MG) PO SCH (04:45)
[2019-01-05 06:00] VITALS: BP 129/62
[2019-01-05 06:09] LABS: HEMATOCRIT 37.7 % (36.0-47.0); HEMOGLOBIN 12.6 g/dl (12.0-15.5); MEAN CORPUSCULAR HEMOGLOBIN 29.4 pg (27.0-33.0); MEAN CORPUSCULAR HGB CONC 33.4 g/dl (32.0-36.5); MEAN CORPUSCULAR VOLUME 88.1 fl (80.0-96.0); PLATELET COUNT, AUTOMATED 246 10^3/uL (150-450); RED BLOOD COUNT 4.28 10^6/uL (4.00-5.40); WHITE BLOOD COUNT 9.1 10^3/uL (4.0-10.0)
[2019-01-05 06:22] LABS: CALCIUM LEVEL 8.8 MG/DL (8.8-10.2); CREATININE FOR GFR 1.35 MG/DL (0.55-1.30); GLOMERULAR FILTRATION RATE 40.5 (>39); MAGNESIUM LEVEL 2.3 MG/DL (1.8-2.4); POTASSIUM SERUM 4.1 MEQ/L (3.5-5.1)
[2019-01-05 06:25] LABS: INR 1.8; PROTHROMBIN TIME 20.6 SECONDS (11.8-14.0)
[2019-01-05] MEDS: ISOSORBIDE DIN (ISORDIL) 10 MG TAB PO SCH ×3 (07:00→16:04)
[2019-01-05] MEDS: SPIRONOLACTONE 25 MG TAB PO SCH (09:00)
[2019-01-05] MEDS: CETIRIZINE (ZyrTEC) 10 MG TAB PO SCH (09:18)
[2019-01-05] MEDS: predniSONE 20 MG TAB PO SCH (09:18)
[2019-01-05] MEDS: OCUVITE 1 TAB PO SCH (09:18)
[2019-01-05] MEDS: ASPIRIN 81 MG ENTERIC TAB PO SCH (09:18)
[2019-01-05] MEDS: ANALGESIC BALM CRM 120 GM TOP SCH ×4 (09:19→21:40)
--- NOTE | 2019-01-05 09:33 | IPN ---
DATE: 01/03/2019 The patient is seen and examined at the bedside. Chart has been reviewed. The patient was ambulating well this morning. She had persistent pain but tolerable, about 3 out of 10 at the bedside and with ambulation. No fever or chills overnight. The patient denies any shortness of breath, chest pain, pressure or tightness, fever, chills. No recurrent falls during this admission. VITAL SIGNS: Temperature 96.3, pulse 70, respiratory rate 17, blood pressure 135/66, 98% on room air. GENERAL: The patient is awake, alert and oriented times three. Answering questions appropriately. No jugular venous distention (JVD). No conversational dyspnea. Anicteric sclerae. No jaundice. Extraocular muscles are intact. Moist mucous membranes. Thick neck. No thyromegaly or cervical lymphadenopathy. LUNGS: Clear to auscultation. No wheezing, rales or rhonchi. HEART: S1, S2. Sinus rhythm. No murmurs, rubs or gallops. ABDOMEN: Soft, obese. Nontender, nondistended. Positive bowel sounds times four quadrants. No rebound, guarding or hepatosplenomegaly. EXTREMITIES: Bilateral knees have no warmth, effusion or significant erythema. There is no pitting edema or cyanosis. LABORATORY DATA: 01/03/2019 CBC, metabolic panel within normal limits. C-reactive protein was less than 0.31. ASSESSMENT AND PLAN: This is a 78-year-old female who lives with her with a past medical history significant for morbid obesity with Body Mass Index (BMI) 54.9, diastolic heart failure, atrial fibrillation on chronic warfarin, obstructive sleep apnea on continuous CPAP, chronic kidney disease stage III, hypertensive heart disease, reflux, neuroma, who presented with pain in the right knee without fever or chills, evaluated by Dr. Youngblood, orthopedic surgery, status post right side arthrocentesis, which was dry, and currently being treated for the following issues: 1. Gout/severe osteoarthritis of the right knee. Orthopedic surgery recommended interventional radiology arthrocentesis, but the patient has had significant clinical improvement with colchicine and prednisone. Able to ambulate without much difficulty. Physical therapy (PT) has been consulted and the patient has been cooperative. 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 Patient and family services (PFS) has been consulted to assist in discharge planning. Awaiting physical therapy (PT) clearance prior to discharge home. 2. Chronic kidney disease stage III, at baseline creatinine. Avoiding nephrotoxic medications; nonsteroidal antiinflammatory drugs (NSAIDs). Fully hydrated, no fluid overload. 3. Morbid obesity. Body Mass Index (BMI) 55.8, complicating her care. 4. Obstructive sleep apnea. She has been resumed on her home CPAP machine, which she uses at night. 5. Chronic hypertensive heart disease. Currently on bisoprolol and losartan with adequate control. Congestive heart failure is compensated with preserved ejection fraction. 6. Diastolic dysfunction. She has been resumed on her home medications. 7. Atrial fibrillation. On chronic anticoagulation, to be held for INR greater than 3 and rate controlled at this time. 8. Hypothyroidism. Resumed on levothyroxine. DISPOSITION: The patient is medically stable for hospital discharge but awaiting physical therapy clearance prior to discharge home. Patient and family services has been consulted to assist in discharge planning. ORLIN
[2019-01-05] MEDS: FUROSEMIDE 20 MG TAB PO SCH (09:57)
[2019-01-05 14:00] VITALS: BP 118/42
[2019-01-05] MEDS: ACETAMINOPHEN TAB 650MG DOSE (2X325MG) PO PRN (14:34)
[2019-01-05] MEDS: WARFARIN SOD 3 MG TAB PO SCH (16:32)
--- NOTE | 2019-01-05 18:27 | IPNPDOC ---
Date Seen The patient was seen on 01/05/19. Progress Note Subjective: pt's lisinopril, spironolactone, and lasix were held due to worsening creatinine. pt requesting to have them resumed. still at stage 3 ckd. no c/o sob PND or orthopnea. still c/o pain in knees. colchicine discontinued due to renal failure and on tapering dose of prednisone. pt is anxious to go home, and most likely will not be able to provide a ramp for home in the near future. PT working with patient. objective physical examination VITAL SIGNS:pls see below GENERAL: The patient is awake, alert and oriented times three. Answering questions appropriately. No jugular venous distention (JVD). No conversational dyspnea. Anicteric sclerae. No jaundice. Extraocular muscles are intact. Moist mucous membranes. Thick neck. No thyromegaly or cervical lymphadenopathy. LUNGS: Clear to auscultation. No wheezing, rales or rhonchi. HEART: S1, S2. Sinus rhythm. No murmurs, rubs or gallops. ABDOMEN: Soft, obese. Nontender, nondistended. Positive bowel sounds times four quadrants. No rebound, guarding or hepatosplenomegaly. EXTREMITIES: Bilateral knees have no warmth, effusion or significant erythema. There is no pitting edema or cyanosis. LABORATORY DATA, IMAGING STUDIES, MICROBIOLOGY: PLS SEE BELOW ASSESSMENT AND PLAN: This is a 78-year-old female who lives with her with a past medical history significant for morbid obesity with Body Mass Index (BMI) 54.9, diastolic heart failure, atrial fibrillation on chronic warfarin, obstructive sleep apnea on continuous CPAP, chronic kidney disease stage III, hypertensive heart disease, reflux, neuroma, who presented with pain in the right knee without fever or chills, evaluated by Dr. Youngblood, orthopedic surgery, status post right side arthrocentesis, which was dry, and currently being treated for the following issues: 1. Gout/severe osteoarthritis of the right knee. Orthopedic surgery recommended interventional radiology arthrocentesis, but the patient has had significant clinical improvement with colchicine and prednisone. Able to ambulate without much difficulty. Physical therapy (PT) has been consulted and the patient has been cooperative. 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 Patient and family services (PFS) has been consulted to assist in discharge planning. Awaiting physical therapy (PT) clearance prior to discharge home. 2. Chronic kidney disease stage III, at baseline creatinine. Avoiding nephrotoxic medications; nonsteroidal antiinflammatory drugs (NSAIDs). Fully hydrated, no fluid overload. 3. Morbid obesity. Body Mass Index (BMI) 55.8, complicating her care. 4. Obstructive sleep apnea. She has been resumed on her home CPAP machine, which she uses at night. 5. Chronic hypertensive heart disease. Currently on bisoprolol and losartan with adequate control. Congestive heart failure is compensated with preserved ejection fraction. resumed lasix and spironolactone 6. Diastolic dysfunction. She has been resumed on her home medications. Currently on bisoprolol and losartan with adequate control. Congestive heart failure is compensated with preserved ejection fraction. resumed lasix and spironolactone 7. Atrial fibrillation. On chronic anticoagulation, to be held for INR greater than 3 and rate controlled at this time. 8. Hypothyroidism. Resumed on levothyroxine. DISPOSITION: The patient is medically stable for hospital discharge but awaiting physical therapy clearance prior to discharge home. Patient and family services has been consulted to assist in discharge planning. VS, I&O, 24H, Fishbone Vital Signs/I&O Vital Signs Date Time Temp Pulse Resp B/P (MAP) Pulse Ox O2 Delivery O2 Flow Rate FiO2 01/05/19 14:00 97.6 62 19 118/42 (67) 97 I&O- Last 24 Hours up to 6 AM 01/05/19 06:00 Intake Total 950 ml Output Total 0 ml Balance 950 ml Laboratory Data 24H LABS Laboratory Tests 2 01/05/19 05:30: Nucleated Red Blood Cells % (auto) 0.0, Prothrombin Time 20.6H, Prothromb Time International Ratio 1.80, Anion Gap 5L, Glomerular Filtration Rate 40.5, Blood Urea Nitrogen 33H, Creatinine 1.35H, Sodium Level 140, Potassium Level 4.1, Chloride Level 109H, Carbon Dioxide Level 26, Calcium Level 8.8, Magnesium Level 2.3 CBC/BMP Laboratory Tests 01/05/19 05:30 Red Blood Count 4.28, Mean Corpuscular Volume 88.1, Mean Corpuscular Hemoglobin 29.4, Mean Corpuscular Hemoglobin Concent 33.4, Red Cell Distribution Width 13.5, Calcium Level 8.8 AURELIO ENG MD Jan 05, 2019 18:27
[2019-01-05] MEDS: bisoproloL fumarate 10 MG TAB PO SCH (21:39)
[2019-01-05] MEDS: LOSARTAN 50 MG TAB PO SCH (21:40)
[2019-01-05 22:00] VITALS: BP 128/51
[2019-01-06] MEDS: LEVOTHYROXINE 137MCG TABLET (0.137MG) PO SCH (05:50)
[2019-01-06 06:00] VITALS: BP 126/51
[2019-01-06] MEDS: ISOSORBIDE DIN (ISORDIL) 10 MG TAB PO SCH ×3 (06:00→17:00)
[2019-01-06 07:48] LABS: HEMATOCRIT 39.3 % (36.0-47.0); HEMOGLOBIN 12.9 g/dl (12.0-15.5); MEAN CORPUSCULAR HEMOGLOBIN 29.8 pg (27.0-33.0); MEAN CORPUSCULAR HGB CONC 32.8 g/dl (32.0-36.5); MEAN CORPUSCULAR VOLUME 90.8 fl (80.0-96.0); PLATELET COUNT, AUTOMATED 240 10^3/uL (150-450); RED BLOOD COUNT 4.33 10^6/uL (4.00-5.40); WHITE BLOOD COUNT 9.9 10^3/uL (4.0-10.0)
[2019-01-06 08:09] LABS: CALCIUM LEVEL 8.8 MG/DL (8.8-10.2); CREATININE FOR GFR 1.43 MG/DL (0.55-1.30); GLOMERULAR FILTRATION RATE 37.9 (>39); MAGNESIUM LEVEL 2.3 MG/DL (1.8-2.4)
--- NOTE | 2019-01-06 09:26 | IPNPDOC ---
Date Seen The patient was seen on 01/06/19. Progress Note Subjective: still c/o weakness unable to go up stairs, but wanting to go home soon. will try PT gym stairs today . still w discomfort in right knee, but better than from admission 2/10 on pain scale when resting, worse w ambulation 5/10. which improves w pain meds. objective physical examination VITAL SIGNS:pls see below GENERAL: sitting on a chair by the bedside with legs elevated. The patient is awake, alert and oriented times three. Answering questions appropriately. No jugular venous distention (JVD). No conversational dyspnea. Anicteric sclerae. No jaundice. Extraocular muscles are intact. Moist mucous membranes. Thick neck. No thyromegaly or cervical lymphadenopathy. LUNGS: Clear to auscultation. No wheezing, rales or rhonchi. HEART: S1, S2. Sinus rhythm. No murmurs, rubs or gallops. ABDOMEN: Soft, obese. Nontender, nondistended. Positive bowel sounds times four quadrants. No rebound, guarding or hepatosplenomegaly. EXTREMITIES: Bilateral knees have no warmth, effusion or significant erythema. There is no pitting edema or cyanosis. LABORATORY DATA, IMAGING STUDIES, MICROBIOLOGY: PLS SEE BELOW ASSESSMENT AND PLAN: This is a 78-year-old female who lives with her with a past medical history significant for morbid obesity with Body Mass Index (BMI) 54.9, diastolic heart failure, atrial fibrillation on chronic warfarin, obstructive sleep apnea on continuous CPAP, chronic kidney disease stage III, hypertensive heart disease, reflux, neuroma, who presented with pain in the right knee without fever or chills, evaluated by Dr. Youngblood, orthopedic surgery, status post right side arthrocentesis, which was dry, and currently being treated for the following issues: 1. Gout/severe osteoarthritis of the right knee. Orthopedic surgery re commended interventional radiology arthrocentesis, but the patient has had significant clinical improvement with colchicine and prednisone. Able to ambulate without much difficulty. Physical therapy (PT) has been consulted and the patient has been cooperative. 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 Patient and family services (PFS) has been consulted to assist in discharge planning. Awaiting physical therapy (PT) clearance prior to discharge home. 2. Chronic kidney disease stage III, at baseline creatinine. Avoiding nephrotoxic medications; nonsteroidal antiinflammatory drugs (NSAIDs). Fully hydrated, no fluid overload. 3. Morbid obesity. Body Mass Index (BMI) 55.8, complicating her care. 4. Obstructive sleep apnea. She has been resumed on her home CPAP machine, which she uses at night. 5. Chronic hypertensive heart disease. Currently on bisoprolol and losartan with adequate control. Congestive heart failure is compensated with preserved ejection fraction. resumed lasix and spironolactone 6. Diastolic dysfunction. She has been resumed on her home medications. Currently on bisoprolol and losartan with adequate control. Congestive heart failure is compensated with preserved ejection fraction. resumed lasix and spironolactone 7. Atrial fibrillation. On chronic anticoagulation, to be held for INR greater than 3 and rate controlled at this time. 8. Hypothyroidism. Resumed on levothyroxine. DISPOSITION: The patient is medically stable for hospital discharge but awaiting physical therapy clearance prior to discharge home. Patient and family services has been consulted to assist in discharge planning. [facility] Vital Signs Date Time Temp Pulse Resp B/P (MAP) Pulse Ox O2 Delivery O2 Flow Rate FiO2 01/06/19 06:00 97.2 75 19 126/51 (76) 96 I&O- Last 24 Hours up to 6 AM 01/06/19 06:00 Intake Total 1320 ml Output Total 1750 ml Balance -430 ml Laboratory Data 24H LABS Laboratory Tests 2 01/06/19 07:36: Nucleated Red Blood Cells % (auto) 0.0, Anion Gap 3L, Glomerular Filtration Rate 37.9L, Blood Urea Nitrogen 33H, Creatinine 1.43H, Sodium Level 140, Potassium Level 4.0, Chloride Level 108H, Carbon Dioxide Level 29, Calcium Level 8.8, Magnesium Level 2.3 CBC/BMP Laboratory Tests 01/06/19 07:36 Red Blood Count 4.33, Mean Corpuscular Volume 90.8, Mean Corpuscular Hemoglobin 29.8, Mean Corpuscular Hemoglobin Concent 32.8, Red Cell Distribution Width 13.4, Calcium Level 8.8 AURELIO ENG MD Jan 06, 2019 08:50
[2019-01-06] MEDS: OCUVITE 1 TAB PO SCH (10:03)
[2019-01-06] MEDS: CETIRIZINE (ZyrTEC) 10 MG TAB PO SCH (10:03)
[2019-01-06] MEDS: FUROSEMIDE 20 MG TAB PO SCH (10:03)
[2019-01-06] MEDS: SPIRONOLACTONE 25 MG TAB PO SCH (10:04)
[2019-01-06] MEDS: predniSONE 20 MG TAB PO SCH (10:04)
[2019-01-06] MEDS: ASPIRIN 81 MG ENTERIC TAB PO SCH (10:04)
[2019-01-06] MEDS: ANALGESIC BALM CRM 120 GM TOP SCH ×4 (10:05→22:03)
[2019-01-06 10:07] LABS: INR 2.53; PROTHROMBIN TIME 27.1 SECONDS (11.8-14.0)
[2019-01-06] MEDS: ACETAMINOPHEN TAB 650MG DOSE (2X325MG) PO PRN ×2 (12:53→22:04)
[2019-01-06 14:00] VITALS: BP 125/51
[2019-01-06] MEDS: WARFARIN SOD 3 MG TAB PO SCH (17:59)
[2019-01-06 21:59] VITALS: BP 133/60
[2019-01-06 22:00] VITALS: BP 148/67
[2019-01-06] MEDS: bisoproloL fumarate 10 MG TAB PO SCH (22:02)
[2019-01-06] MEDS: LOSARTAN 50 MG TAB PO SCH (22:02)
[2019-01-07 04:42] VITALS: BP 142/65
[2019-01-07] MEDS: LEVOTHYROXINE 137MCG TABLET (0.137MG) PO SCH (04:43)
[2019-01-07 06:00] VITALS: BP 148/67
[2019-01-07 06:30] VITALS: BP 139/63
[2019-01-07 06:34] VITALS: BP 139/63
[2019-01-07] MEDS: ISOSORBIDE DIN (ISORDIL) 10 MG TAB PO SCH (06:34)
[2019-01-07] MEDS ORDERED: PRED10TA2 PO (07:27)
[2019-01-07] MEDS: CETIRIZINE (ZyrTEC) 10 MG TAB PO SCH (08:39)
[2019-01-07] MEDS: SPIRONOLACTONE 25 MG TAB PO SCH (08:39)
[2019-01-07] MEDS: OCUVITE 1 TAB PO SCH (08:39)
[2019-01-07] MEDS: ASPIRIN 81 MG ENTERIC TAB PO SCH (08:39)
[2019-01-07] MEDS: predniSONE 20 MG TAB PO SCH (08:40)
[2019-01-07] MEDS: FUROSEMIDE 20 MG TAB PO SCH (08:40)
[2019-01-07] MEDS: ANALGESIC BALM CRM 120 GM TOP SCH (08:43)
--- NOTE | 2019-01-07 13:15 | DS.PDOC ---
Discharge Summary General Date of Admission Dec 30, 2018 at 14:50 Date of Discharge 2018 Discharge Summary ORTHO-DR YOUNGBLOOD DISCHARGE DIAGNOSES: Acute Gout flare /severe osteoarthritis of the right knee. Chronic kidney disease stage III, at baseline creatinine. Morbid obesity. Body Mass Index (BMI) 55.8 Obstructive sleep apnea. Chronic hypertensive heart disease. Diastolic dysfunction. Atrial fibrillation. Hypothyroidism DISCHARGE MEDICATIONS: PLS SEE BELOW DISCHARGE INSTRUCTIONS: FU W PCP WITHIN 5 DAYS OF DISCHARGE, FU W ORTHO IN 1 WK HOSPITAL COURSE: This is a 78-year-old female who lives with her with a past medical history significant for morbid obesity with Body Mass Index (BMI) 54.9, diastolic heart failure, atrial fibrillation on chronic warfarin, obstructive sleep apnea on continuous CPAP, chronic kidney disease stage III, hypertensive heart disease, reflux, neuroma, who presented with pain in the right knee without fever or chills, evaluated by Dr. Youngblood, orthopedic surgery, status post right side arthrocentesis, which was dry. Pt was treated for : Acute Gout flare/severe osteoarthritis of the right knee. Orthopedic surgery re commended interventional radiology arthrocentesis, but the patient has had significant clinical improvement with colchicine and prednisone. Able to ambulate without much difficulty. Physical therapy (PT) has been consulted and the patient has been cooperative. 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 Patient and family services (PFS) has been consulted to assist in discharge planning. Pt was cleared by physical therapy (PT) and will be able to go up the 7 steps into the home. Pt may be discharged home today. Chronic kidney disease stage III, at baseline creatinine. Avoided nephrotoxic medications; nonsteroidal antiinflammatory drugs (NSAIDs). Fully hydrated, no fluid overload. Morbid obesity. Body Mass Index (BMI) 55.8, complicating her care. Obstructive sleep apnea. no issues during the hospital stay Chronic hypertensive heart disease. Currently on bisoprolol and losartan with adequate control. Congestive heart failure is compensated with preserved ejection fraction. resumed lasix and spironolactone Diastolic dysfunction. She has been resumed on her home medications. Currently on bisoprolol and losartan with adequate control. Congestive heart failure is compensated with preserved ejection fraction. resumed lasix and spironolactone Atrial fibrillation. On chronic anticoagulation,and rate controlled at this time. Hypothyroidism. Resumed on levothyroxine. Discharge physical examination VITAL SIGNS:pls see below GENERAL: sitting on a chair by the bedside with legs elevated. The patient is awake, alert and oriented times three. Answering questions appropriately. No jugular venous distention (JVD). No conversational dyspnea. Anicteric sclerae. No jaundice. Extraocular muscles are intact. Moist mucous membranes. Thick neck. No thyromegaly or cervical lymphadenopathy. LUNGS: Clear to auscultation. No wheezing, rales or rhonchi. HEART: S1, S2. Sinus rhythm. No murmurs, rubs or gallops. ABDOMEN: Soft, obese. Nontender, nondistended. Positive bowel sounds times four quadrants. No rebound, guarding or hepatosplenomegaly. EXTREMITIES: Bilateral knees have no warmth, effusion or significant erythema. There is no pitting edema or cyanosis. LABORATORY DATA, IMAGING STUDIES, MICROBIOLOGY: PLS SEE BELOW TIME SPENT ON DISCHARGE: 32 MIN Vital Signs/I&Os Vital Signs Date Time Temp Pulse Resp B/P (MAP) Pulse Ox O2 Delivery O2 Flow Rate FiO2 01/07/19 06:34 139/63 01/07/19 06:30 96.6 64 20 97 I&O- Last 24 Hours up to 6 AM 01/07/19 06:00 Intake Total 1570 ml Output Total 1500 ml Balance 70 ml Discharge Medications Scheduled Aspirin (Aspirin EC) 81 Mg Tabec, 81 MG PO DAILY, (Reported) Bisoprolol Fumarate (Bisoprolol Fumarate) 10 Mg Tablet, 10 MG PO DAILY, (Reported) Cholecalciferol (Vitamin D3) (Vitamin D3) 1,000 Unit Tab, 1,000 UNIT PO DAILY, (Reported) Diltiazem HCl (Dilt-Xr) 240 Mg Cap.er.deg, 240 MG PO DAILY, (Reported) Furosemide (Furosemide) 20 Mg Tab, 20 MG PO DAILY, (Reported) Levothyroxine Sodium (Synthroid) 137 Mcg Tab, 137 MCG PO DAILY, (Reported) Losartan Potassium (Losartan Potassium) 100 Mg Tab, 100 MG PO QHS, (Reported) [place]-3/Dha/Epa/Fish Oil (Fish Oil 1,000 mg Softgel) 1 Cap Cap, 1 CAP PO DAILY, (Reported) Prednisone (Prednisone) 10 Mg Tablet, 10 MG PO TAPER Take 4 tabs daily x 3 days, then 3 tabs daily x 3 days, then 2 tabs daily x 3 days, then 1 tab daily x 3 days and stop Spironolactone (Spironolactone) 25 Mg Tab, 25 MG PO DAILY, (Reported) Vit A/Vit C/Vit E/Zinc/Copper (Preservision Areds Softgel) 1 Each Capsule, 1 CAP PO DAILY, (Reported) Warfarin Sodium (Coumadin) 3 Mg Tab, 3 MG PO 3XW, (Reported) QPM: ,,SAT Warfarin Sodium (Warfarin Sodium) 3 Mg Tablet, 6 MG PO 4XWK, (Reported) QPM: MON,WED,FRI,SUN Scheduled PRN Albuterol Sulfate (Proair Hfa) 108 Mcg/Act Aer, 2 PUFF INH Q4H PRN for SHORTNESS OF BREATH, (Reported) Diazepam (Diazepam) 2 Mg Tab, 2 MG PO DAILY PRN for ANXIETY, (Reported) Nitroglycerin (Nitrostat) 0.4 Mg Subl, 0.4 MG SL NITRO PRN for CHEST PAIN, (Reported) Propylene Glycol/Peg 400 (Systane 0.3-0.4% Eye Drops) 15 Ml Shannan, 1 DROP OU QID PRN for DRY EYES, (Reported) Sodium Chloride (Carteret) 0.65 % Spr, 2 SPRAY NA QID PRN for NASAL DRYNESS, (Reported) EACH NOSTRIL Allergies Coded Allergies: hydrochlorothiazide (Verified Allergy, Intermediate, HIVES, 08/07/18) sucralfate (Verified Allergy, Intermediate, HIVES, 08/07/18) verapamil (Verified Allergy, Intermediate, hives, 08/07/18) Cephalosporins (Verified Allergy, Unknown, 08/07/18) citalopram (Verified Allergy, Unknown, 08/07/18) salmeterol (Verified Allergy, Unknown, 08/07/18) Sulfa (Sulfonamide Antibiotics) (Verified Adverse Reaction, Intermediate, worsens pemphygoid, 08/07/18) valsartan (Verified Adverse Reaction, Intermediate, HEADACHES AND PALPITATIONS, 08/07/18) Quinolones (Verified Adverse Reaction, Mild, abdominal pain, 08/07/18) captopril (Verified Adverse Reaction, Mild, itching, 08/07/18) AURELIO ENG MD Jan 07, 2019 13:15
== END 2019-01-07 09:59 | disposition home health service (06) | DRG 554 ==
LOC: M ED 13:37 → M ED INP 13:38 → M MSPAV 12-29 13:22 → OBSVTOIN 12-30 14:50
PROVIDERS: ADMIT Internal Medicine; ATTEND General Practice
PROC: 0SJC3ZZ Inspection of Right Knee Joint, Percutaneous Approach (ICD-10-PCS; principal; 2018-12-29)
DX: M10.061 Idiopathic gout, right knee (principal); I50.32 Chronic diastolic (congestive) heart failure; I13.0 Hypertensive heart and chronic kidney disease with heart failure and stage 1 through stage 4 chronic kidney disease, or unspecified chronic kidney disease; N17.9 Acute kidney failure, unspecified; Z68.43 Body mass index [BMI] 50.0-59.9, adult; I48.2 Chronic atrial fibrillation; G47.33 Obstructive sleep apnea (adult) (pediatric); M17.11 Unilateral primary osteoarthritis, right knee; E03.9 Hypothyroidism, unspecified; N18.3 Chronic kidney disease, stage 3 (moderate); E66.01 Morbid (severe) obesity due to excess calories; M16.0 Bilateral primary osteoarthritis of hip; R26.81 Unsteadiness on feet; K21.9 Gastro-esophageal reflux disease without esophagitis; Z95.0 Presence of cardiac pacemaker; Z95.828 Presence of other vascular implants and grafts; Z87.891 Personal history of nicotine dependence; Z79.01 Long term (current) use of anticoagulants; Z79.82 Long term (current) use of aspirin; Z79.899 Other long term (current) drug therapy; Z88.1 Allergy status to other antibiotic agents; Z88.2 Allergy status to sulfonamides; Z88.8 Allergy status to other drugs, medicaments and biological substances; Z92.3 Personal history of irradiation